=== PATIENT | male | born 1980 | race Two or more races ===

== ENCOUNTER 2016-05-30 07:51 | Inpatient (IN) | payer MEDICAID, OTHER ==
[~2016-05-30] VITALS: Ht 175.3 cm; Wt 83.1 kg
[2016-05-30] MEDS ORDERED: SODIUM CHLORIDE 0.9% 1,000 ML IV ONE (08:32)
[2016-05-30] MEDS ORDERED: HYDR-3240 PO (08:40)
[2016-05-30 09:13] LABS: HEMOGLOBIN 16.2 g/dL (13.7-18.0)
[2016-05-30 09:25] LABS: ASPARTATE AMINO TRANSFERASE 45 U/L (15-37); BLOOD UREA NITROGEN 13 mg/dL (7-18)
[2016-05-30 09:31] LABS: DIFF TOTAL CELLS COUNTED 100 CELL DIFF
[2016-05-30] MEDS ORDERED: ACETAMINOPHEN 325 MG TABLET PO ONE (10:00)
[2016-05-30] MEDS ORDERED: CEFTRIAXONE PMX 1GM/50ML 50 ML IV SCH (10:00)
[2016-05-30] MEDS ORDERED: ACETAMINOPHEN 325 MG TABLET ONE (10:15)
[2016-05-30] MEDS ORDERED: CEFTRIAXONE PMX 1GM/50ML 50 ML ONE (10:15)
[2016-05-30 10:30] LABS: VERIFY COUNTS? YES
[2016-05-30 10:37] LABS: POLYCHROMASIA 1+
[2016-05-30] MEDS ORDERED: BISACODYL 10 MG SUPP PR PRN (11:00)
[2016-05-30] MEDS: NICOTINE 14MG/24 HR PATCH.TD24 TD SCH (11:00)
[2016-05-30 11:39] VITALS: BP 112/76
[2016-05-30] MEDS: MEROPENEM 1 GM in SODIUM CHLORIDE 0.9% 50 ML IV SCH ×2 (11:40→21:04)
[2016-05-30] MEDS: SODIUM CHLORIDE 0.9% 1,000 ML IV SCH ×2 (11:41→21:04)
[2016-05-30] MEDS ORDERED: HEPARIN 5,000 UNITS/ML, 1ML IV ONE (12:00)
[2016-05-30 14:23] VITALS: BP 101/64
[2016-05-30] MEDS: HEPARIN 25,000 UNITS/500ML PMX 500 ML IV PRN (14:29)
[2016-05-30] MEDS: MORPHINE SULFATE 4 MG/ML, 1ML IVPush PRN ×2 (16:35→19:48)
[2016-05-30 20:00] VITALS: BP 116/70
[2016-05-30] MEDS: ACETAMINOPHEN 325 MG TABLET PO PRN (20:07)
[2016-05-30] MEDS: OXYcodone IR 5MG TABLET PO PRN (23:15)
[2016-05-31] MEDS: MORPHINE SULFATE 4 MG/ML, 1ML IVPush PRN ×6 (01:14→20:10)
[2016-05-31 01:35] VITALS: BP 113/72
[2016-05-31] MEDS: ACETAMINOPHEN 325 MG TABLET PO PRN ×2 (01:43→20:10)
[2016-05-31] MEDS: MEROPENEM 1 GM in SODIUM CHLORIDE 0.9% 50 ML IV SCH ×3 (04:40→20:10)
[2016-05-31 05:20] LABS: BLOOD UREA NITROGEN 12 mg/dL (7-18)
[2016-05-31 05:41] LABS: HIV 1&2 ANTIBODY SCREEN Nonreactive (Nonreactive); HIV-1 p24 ANTIGEN Nonreactive (Nonreactive)
[2016-05-31] MEDS: SODIUM CHLORIDE 0.9% 1,000 ML IV SCH ×2 (05:54→19:01)
[2016-05-31 06:01] LABS: HEMOGLOBIN 15.5 g/dL (13.7-18.0)
[2016-05-31 06:02] LABS: DIFF TOTAL CELLS COUNTED 100 CELL DIFF
[2016-05-31 06:06] LABS: VERIFY COUNTS? YES
[2016-05-31 06:09] LABS: POLYCHROMASIA 1+
[2016-05-31] MEDS: OXYcodone IR 5MG TABLET PO PRN ×4 (06:27→22:58)
[2016-05-31 07:30] VITALS: BP 115/79
[2016-05-31 10:31] LABS: HEPATITIS C VIRUS ANTIBODY Nonreactive (Nonreactive)
[2016-05-31] MEDS: NICOTINE 14MG/24 HR PATCH.TD24 TD SCH (10:38)
[2016-05-31 14:00] VITALS: BP 110/71
[2016-05-31] MEDS ORDERED: LIDOCAINE 1%, 20ML ONE (14:19)
[2016-05-31] MEDS ORDERED: NALOXONE 1 MG/ML, 2ML ONE (14:28)
[2016-05-31] MEDS ORDERED: FENTANYL PF 100 MCG/2ML ONE (14:28)
[2016-05-31] MEDS ORDERED: MIDAZOLAM 1 MG/ML, 5ML ONE (14:28)
[2016-05-31 16:09] VITALS: BP 117/75
[2016-05-31] MEDS: HEPARIN 25,000 UNITS/500ML PMX 500 ML IV PRN (17:35)
[2016-05-31 19:50] VITALS: BP 120/78
[2016-05-31] MEDS: HEPARIN 5,000 UNITS/ML, 1ML IV PRN (22:59)
[2016-06-01 00:38] VITALS: BP 103/68
[2016-06-01] MEDS: MORPHINE SULFATE 4 MG/ML, 1ML IVPush PRN ×4 (03:49→21:45)
[2016-06-01 04:47] LABS: HEMOGLOBIN 14.4 g/dL (13.7-18.0)
[2016-06-01] MEDS: MEROPENEM 1 GM in SODIUM CHLORIDE 0.9% 50 ML IV SCH ×3 (04:51→21:45)
[2016-06-01] MEDS: SODIUM CHLORIDE 0.9% 1,000 ML IV SCH (04:51)
[2016-06-01] MEDS: HEPARIN 25,000 UNITS/500ML PMX 500 ML IV PRN (04:52)
[2016-06-01 05:10] LABS: ASPARTATE AMINO TRANSFERASE 30 U/L (15-37); BLOOD UREA NITROGEN 10 mg/dL (7-18)
[2016-06-01] MEDS: OXYcodone IR 5MG TABLET PO PRN ×4 (05:26→23:58)
[2016-06-01] MEDS: HEPARIN 5,000 UNITS/ML, 1ML IV PRN ×3 (05:26→18:45)
[2016-06-01 05:49] LABS: DIFF TOTAL CELLS COUNTED 100 CELL DIFF
[2016-06-01 06:48] LABS: VERIFY COUNTS? YES
[2016-06-01 06:52] LABS: POLYCHROMASIA 1+
[2016-06-01 07:39] VITALS: BP 127/82
[2016-06-01] MEDS: NICOTINE 14MG/24 HR PATCH.TD24 TD SCH (11:00)
[2016-06-01 14:15] VITALS: BP 116/73
[2016-06-01 21:15] VITALS: BP 117/75
[2016-06-02] MEDS: HEPARIN 5,000 UNITS/ML, 1ML IV PRN ×3 (01:11→22:22)
[2016-06-02] MEDS: HEPARIN 25,000 UNITS/500ML PMX 500 ML IV PRN ×2 (01:12→15:36)
[2016-06-02 01:50] VITALS: BP 109/70
[2016-06-02] MEDS: MEROPENEM 1 GM in SODIUM CHLORIDE 0.9% 50 ML IV SCH ×3 (05:04→19:51)
[2016-06-02] MEDS: MORPHINE SULFATE 4 MG/ML, 1ML IVPush PRN ×3 (05:45→19:51)
[2016-06-02 07:40] VITALS: BP 119/81
[2016-06-02] MEDS: NICOTINE 14MG/24 HR PATCH.TD24 TD SCH (10:43)
[2016-06-02] MEDS: POLYETHYLENE GLYCOL 17 GM PACKET PO PRN (13:51)
[2016-06-02] MEDS: DOCUSATE 100 MG CAPSULE PO PRN (13:51)
[2016-06-02 14:30] VITALS: BP 121/78
[2016-06-02] MEDS ORDERED: WARFARIN 10 MG TABLET PO-COUM SCH (18:00)
[2016-06-02] MEDS ORDERED: WARFARIN HIGH DOSE PROTOCOL XX SCH (18:00)
[2016-06-02 19:25] VITALS: BP 106/68
[2016-06-02] MEDS ORDERED: OMNIPAQUE 350 MG/ML, 50 ML BOTTLE ONE (20:00)
[2016-06-02] MEDS ORDERED: OMNIPAQUE 350 MG/ML, 100ML BOTTLE ONE (20:00)
[2016-06-03 02:20] VITALS: BP 105/70
[2016-06-03] MEDS: MEROPENEM 1 GM in SODIUM CHLORIDE 0.9% 50 ML IV SCH (04:31)
[2016-06-03 04:44] LABS: HEMOGLOBIN 14.7 g/dL (13.7-18.0)
[2016-06-03 04:45] LABS: BLOOD UREA NITROGEN 9 mg/dL (7-18)
[2016-06-03 06:01] LABS: DIFF TOTAL CELLS COUNTED 100 CELL DIFF
[2016-06-03 06:07] LABS: VERIFY COUNTS? YES
[2016-06-03 06:08] LABS: POLYCHROMASIA 1+
[2016-06-03 07:19] VITALS: BP 114/74
[2016-06-03] MEDS ORDERED: MEROPENEM 1 GM in SODIUM CHLORIDE 0.9% 100 ML IV SCH (09:08)
[2016-06-03] MEDS: NICOTINE 14MG/24 HR PATCH.TD24 TD SCH (11:00)
[2016-06-03] MEDS ORDERED: LIDOCAINE 1%, 20ML ONE (13:22)
[2016-06-03 14:21] VITALS: BP 128/77
[2016-06-03] MEDS: MEROPENEM 1 GM in SODIUM CHLORIDE 0.9% 100 ML IV SCH ×2 (14:35→20:51)
[2016-06-03 14:37] LABS: CYTOLOGY BODY FLUID RECD INTO PATHOLOGY; CYTOLOGY BODY FLUID SOURCE CEREBROSPINAL FLUID
[2016-06-03] MEDS: OXYcodone IR 5MG TABLET PO PRN ×2 (14:43→21:49)
[2016-06-03 15:06] LABS: GLUCOSE, CSF 50 mg/dL (40-80)
[2016-06-03] MEDS: MORPHINE SULFATE 4 MG/ML, 1ML IVPush PRN ×3 (16:34→21:49)
[2016-06-03 19:31] VITALS: BP 110/76
[2016-06-03] MEDS ORDERED: HEPARIN 5,000 UNITS/ML, 1ML IV ONE (21:30)
[2016-06-03] MEDS: HEPARIN 25,000 UNITS/500ML PMX 500 ML IV PRN (21:35)
[2016-06-04 02:18] VITALS: BP 118/84
[2016-06-04] MEDS: OXYcodone IR 5MG TABLET PO PRN ×4 (02:30→21:31)
[2016-06-04] MEDS: MORPHINE SULFATE 4 MG/ML, 1ML IVPush PRN ×4 (02:30→18:00)
[2016-06-04] MEDS: GABAPENTIN 100 MG CAPSULE PO SCH ×3 (03:30→21:27)
[2016-06-04 03:38] LABS: BLOOD UREA NITROGEN 12 mg/dL (7-18)
[2016-06-04 03:59] LABS: HEMOGLOBIN 14.8 g/dL (13.7-18.0)
[2016-06-04] MEDS: HEPARIN 5,000 UNITS/ML, 1ML IV PRN ×3 (03:59→18:29)
[2016-06-04] MEDS: HEPARIN 25,000 UNITS/500ML PMX 500 ML IV PRN ×2 (04:02→21:32)
[2016-06-04 04:03] LABS: DIFF TOTAL CELLS COUNTED 100 CELL DIFF
[2016-06-04 04:09] LABS: POLYCHROMASIA 1+
[2016-06-04 04:27] LABS: VERIFY COUNTS? YES
[2016-06-04] MEDS: MEROPENEM 1 GM in SODIUM CHLORIDE 0.9% 100 ML IV SCH ×3 (05:36→21:27)
[2016-06-04 07:08] VITALS: BP 116/82
[2016-06-04] MEDS: NICOTINE 14MG/24 HR PATCH.TD24 TD SCH (11:00)
[2016-06-04 14:31] VITALS: BP 130/72
[2016-06-04] MEDS ORDERED: FOSAPREPITANT 150 MG in SODIUM CHLORIDE 0.9% 145 ML IV ONE (15:30)
[2016-06-04] MEDS: ONDANSETRON IV SCH (16:49)
[2016-06-04] MEDS: DEXAMETHASONE IV SCH (16:49)
[2016-06-04] MEDS: DEXTROSE 5% IV SCH (16:49)
[2016-06-04] MEDS: MESNA IVPB SCH (17:45)
[2016-06-04] MEDS: SODIUM CHLORIDE 0.9% IVPB SCH (17:45)
[2016-06-04] MEDS: ALLOPURINOL 300 MG TABLET PO SCH ×2 (18:00→21:27)
[2016-06-04] MEDS: CYCLOPHOSPHAMIDE IV SCH (19:15)
[2016-06-04] MEDS: SODIUM CHLORIDE 0.9% IV SCH (19:15)
[2016-06-04 19:55] VITALS: BP 154/78
[2016-06-05 01:14] LABS: DIFF TOTAL CELLS COUNTED 100 CELL DIFF; HEMOGLOBIN 15.2 g/dL (13.7-18.0)
[2016-06-05 01:20] LABS: BLOOD UREA NITROGEN 11 mg/dL (7-18)
[2016-06-05 01:36] VITALS: BP 120/74
[2016-06-05 01:40] LABS: VERIFY COUNTS? YES
[2016-06-05 01:42] LABS: POLYCHROMASIA 1+; SMUDGE CELLS 1+
[2016-06-05] MEDS: ALLOPURINOL 300 MG TABLET PO SCH ×2 (04:25→21:52)
[2016-06-05] MEDS: MEROPENEM 1 GM in SODIUM CHLORIDE 0.9% 100 ML IV SCH ×3 (04:26→21:52)
[2016-06-05] MEDS: SODIUM CHLORIDE 0.9% IV SCH ×2 (06:31→18:25)
[2016-06-05] MEDS: CYCLOPHOSPHAMIDE IV SCH ×2 (06:31→18:25)
[2016-06-05 06:43] VITALS: BP 135/82
[2016-06-05] MEDS: HEPARIN 5,000 UNITS/ML, 1ML IV PRN (07:40)
[2016-06-05] MEDS ORDERED: METHOTREXATE/PF 2ML 12 MG in SODIUM CHLORIDE 0.9% 4.52 ML IT ONE (09:00)
[2016-06-05] MEDS: GABAPENTIN 100 MG CAPSULE PO SCH ×2 (09:17→21:52)
[2016-06-05] MEDS: NICOTINE 14MG/24 HR PATCH.TD24 TD SCH (11:00)
[2016-06-05] MEDS: OXYcodone IR 5MG TABLET PO PRN ×3 (12:07→21:59)
[2016-06-05 12:34] VITALS: BP 135/88
[2016-06-05] MEDS ORDERED: SODIUM BICARBONATE 4.2%, 5ML ONE (16:04)
[2016-06-05] MEDS ORDERED: LIDOCAINE 1%, 20ML ONE (16:04)
[2016-06-05] MEDS: DEXAMETHASONE IV SCH (17:28)
[2016-06-05] MEDS: DEXTROSE 5% IV SCH (17:28)
[2016-06-05] MEDS: MESNA IVPB SCH (17:28)
[2016-06-05] MEDS: ONDANSETRON IV SCH (17:28)
[2016-06-05] MEDS: SODIUM CHLORIDE 0.9% IVPB SCH (17:28)
[2016-06-05 19:54] VITALS: BP 131/81
[2016-06-05] MEDS ORDERED: HEPARIN 5,000 UNITS/ML, 1ML IVPush ONE (22:30)
[2016-06-05] MEDS: HEPARIN 25,000 UNITS/500ML PMX 500 ML IV PRN (23:41)
[2016-06-06 02:22] VITALS: BP 121/85
[2016-06-06] MEDS: OXYcodone IR 5MG TABLET PO PRN ×2 (02:40→06:51)
[2016-06-06] MEDS: MEROPENEM 1 GM in SODIUM CHLORIDE 0.9% 100 ML IV SCH (05:52)
[2016-06-06] MEDS: SODIUM CHLORIDE 0.9% IV SCH ×2 (06:01→18:22)
[2016-06-06] MEDS: CYCLOPHOSPHAMIDE IV SCH ×2 (06:01→18:22)
[2016-06-06 06:04] LABS: BLOOD UREA NITROGEN 16 mg/dL (7-18)
[2016-06-06] MEDS: HEPARIN 5,000 UNITS/ML, 1ML IV PRN (06:15)
[2016-06-06 06:31] LABS: HEMOGLOBIN 14.5 g/dL (13.7-18.0)
[2016-06-06 06:39] LABS: DIFF TOTAL CELLS COUNTED 100 CELL DIFF
[2016-06-06 07:35] LABS: POLYCHROMASIA 1+
[2016-06-06 07:51] LABS: VERIFY COUNTS? YES
[2016-06-06] MEDS: GABAPENTIN 100 MG CAPSULE PO SCH ×2 (08:30→21:07)
[2016-06-06] MEDS: MORPHINE SULFATE 4 MG/ML, 1ML IVPush PRN ×2 (08:38→21:06)
[2016-06-06 08:47] VITALS: BP 114/64
[2016-06-06] MEDS: NICOTINE 14MG/24 HR PATCH.TD24 TD SCH (11:00)
[2016-06-06] MEDS ORDERED: BACLOFEN 10 MG TABLET PO PRN (11:00)
[2016-06-06 12:10] LABS: HIT RESULT NEGATIVE (NEGATIVE)
[2016-06-06 12:11] LABS: HIT LOT 23843; HIT OBC PASS
[2016-06-06] MEDS ORDERED: ARGATROBAN/NACL 50 MG/50 ML 50 ML IV SCH (12:30)
[2016-06-06] MEDS: ARGATROBAN/NACL 50 MG/50 ML 50 ML IV SCH ×3 (15:45→23:59)
[2016-06-06] MEDS: ONDANSETRON IV SCH (16:03)
[2016-06-06] MEDS: DEXTROSE 5% IV SCH (16:03)
[2016-06-06] MEDS: DEXAMETHASONE IV SCH (16:03)
[2016-06-06 16:19] VITALS: BP 124/79
[2016-06-06] MEDS: POLYETHYLENE GLYCOL 17 GM PACKET PO PRN (16:32)
[2016-06-06] MEDS ORDERED: IMATINIB 100 MG TABLET ONE (17:00)
[2016-06-06] MEDS: MESNA IVPB SCH (18:20)
[2016-06-06] MEDS: SODIUM CHLORIDE 0.9% IVPB SCH (18:20)
[2016-06-06] MEDS: IMATINIB 100 MG PO SCH (18:23)
[2016-06-06 19:38] VITALS: BP 119/69
[2016-06-06] MEDS: ALLOPURINOL 300 MG TABLET PO SCH (21:07)
[2016-06-07 02:22] VITALS: BP 122/69
[2016-06-07] MEDS: OXYcodone IR 5MG TABLET PO PRN ×3 (02:30→20:07)
[2016-06-07 02:36] LABS: HEMOGLOBIN 14.4 g/dL (13.7-18.0)
[2016-06-07 02:45] LABS: BLOOD UREA NITROGEN 17 mg/dL (7-18)
[2016-06-07 02:50] LABS: DIFF TOTAL CELLS COUNTED 100 CELL DIFF
[2016-06-07 03:11] LABS: VERIFY COUNTS? YES
[2016-06-07 03:12] LABS: POLYCHROMASIA 1+; SMUDGE CELLS 1+
[2016-06-07] MEDS: ARGATROBAN/NACL 50 MG/50 ML 50 ML IV SCH ×3 (03:32→13:59)
[2016-06-07] MEDS: CYCLOPHOSPHAMIDE IV SCH (06:00)
[2016-06-07] MEDS: SODIUM CHLORIDE 0.9% IV SCH (06:00)
[2016-06-07 06:57] VITALS: BP 100/59
[2016-06-07] MEDS: GABAPENTIN 100 MG CAPSULE PO SCH ×2 (08:32→20:07)
[2016-06-07] MEDS: NICOTINE 14MG/24 HR PATCH.TD24 TD SCH (10:38)
[2016-06-07 12:40] VITALS: BP 121/74
[2016-06-07] MEDS ORDERED: SODIUM CHLORIDE 0.9% IV ONE ×2 (15:30→16:00)
[2016-06-07] MEDS ORDERED: VINCRISTINE IV ONE (15:30)
[2016-06-07] MEDS: DEXAMETHASONE IV SCH (15:57)
[2016-06-07] MEDS: DEXTROSE 5% IV SCH (15:57)
[2016-06-07] MEDS: ONDANSETRON IV SCH (15:57)
[2016-06-07] MEDS ORDERED: DOXORUBICIN IV ONE (16:00)
[2016-06-07] MEDS ORDERED: METOCLOPRAMIDE 10MG TABLET PO PRN (16:30)
[2016-06-07] MEDS ORDERED: IMATINIB 100 MG TABLET ONE (17:00)
[2016-06-07] MEDS: IMATINIB 100 MG PO SCH (17:00)
[2016-06-07 18:42] VITALS: BP 123/63
[2016-06-07] MEDS: ALLOPURINOL 300 MG TABLET PO SCH (20:07)
[2016-06-07] MEDS ORDERED: ARGATROBAN IN 0.9 % SOD CHLOR 250 ML IV SCH (22:00)
[2016-06-08] MEDS ORDERED: IMATINIB 100 MG PO SCH (00:55)
[2016-06-08 03:54] VITALS: BP 111/65
[2016-06-08 07:14] LABS: BLOOD UREA NITROGEN 18 mg/dL (7-18)
[2016-06-08 07:16] LABS: ASPARTATE AMINO TRANSFERASE 93 U/L (15-37)
[2016-06-08 07:20] LABS: HEMOGLOBIN 14.2 g/dL (13.7-18.0)
[2016-06-08 08:24] LABS: DIFF TOTAL CELLS COUNTED 100 CELL DIFF
[2016-06-08] MEDS: GABAPENTIN 100 MG CAPSULE PO SCH ×2 (08:31→21:01)
[2016-06-08 08:33] VITALS: BP 118/56
[2016-06-08 08:44] LABS: POLYCHROMASIA 1+
[2016-06-08 08:45] LABS: VERIFY COUNTS? YES
[2016-06-08] MEDS: OXYcodone IR 5MG TABLET PO PRN (09:23)
[2016-06-08] MEDS: NICOTINE 14MG/24 HR PATCH.TD24 TD SCH (11:00)
[2016-06-08] MEDS ORDERED: ARGATROBAN IN 0.9 % SOD CHLOR 250 ML IV SCH (11:32)
[2016-06-08 14:20] VITALS: BP 112/54
[2016-06-08] MEDS: ARGATROBAN IN 0.9 % SOD CHLOR 250 ML IV SCH ×2 (16:59→23:16)
[2016-06-08] MEDS ORDERED: IMATINIB 100 MG TABLET ONE (17:00)
[2016-06-08] MEDS: IMATINIB 100 MG PO SCH (17:30)
[2016-06-08] MEDS: ONDANSETRON 2MG/ML, 2ML IVP PRN (17:53)
[2016-06-08] MEDS: PROMETHAZINE 25 MG/ML, 1ML IM PRN (18:20)
[2016-06-08 20:00] VITALS: BP 104/57
[2016-06-08] MEDS: TBO-FILGRASTIM 480 MCG/0.8 ML SQ SCH (21:01)
[2016-06-08] MEDS: ALLOPURINOL 300 MG TABLET PO SCH (21:01)
[2016-06-09 02:13] VITALS: BP 105/53
[2016-06-09] MEDS: OXYcodone IR 5MG TABLET PO PRN (02:58)
[2016-06-09 06:22] LABS: BLOOD UREA NITROGEN 21 mg/dL (7-18)
[2016-06-09 06:23] LABS: HEMOGLOBIN 14.7 g/dL (13.7-18.0)
[2016-06-09 06:47] LABS: DIFF TOTAL CELLS COUNTED 100 CELL DIFF
[2016-06-09 06:50] LABS: VERIFY COUNTS? YES
[2016-06-09] MEDS: GABAPENTIN 100 MG CAPSULE PO SCH ×2 (08:12→20:03)
[2016-06-09 09:01] VITALS: BP 94/60
[2016-06-09] MEDS: NICOTINE 14MG/24 HR PATCH.TD24 TD SCH (10:49)
[2016-06-09] MEDS ORDERED: ARGATROBAN IN 0.9 % SOD CHLOR 250 ML IV SCH ×2 (11:14→13:46)
[2016-06-09] MEDS: ARGATROBAN IN 0.9 % SOD CHLOR 250 ML IV SCH ×3 (13:48→18:33)
[2016-06-09 14:22] VITALS: BP 103/66
[2016-06-09] MEDS ORDERED: IMATINIB 100 MG TABLET ONE (17:00)
[2016-06-09] MEDS: IMATINIB 100 MG PO SCH (17:18)
[2016-06-09] MEDS: ALLOPURINOL 300 MG TABLET PO SCH (20:03)
[2016-06-09 20:33] VITALS: BP 99/63
[2016-06-09] MEDS: TBO-FILGRASTIM 480 MCG/0.8 ML SQ SCH (21:31)
[2016-06-10] MEDS: ARGATROBAN IN 0.9 % SOD CHLOR 250 ML IV SCH ×4 (01:31→21:47)
[2016-06-10 04:15] VITALS: BP 105/60
[2016-06-10 05:38] LABS: BLOOD UREA NITROGEN 19 mg/dL (7-18)
[2016-06-10 05:41] LABS: HEMOGLOBIN 13.1 g/dL (13.7-18.0)
[2016-06-10 06:10] LABS: DIFF TOTAL CELLS COUNTED 100 CELL DIFF
[2016-06-10 06:23] LABS: VERIFY COUNTS? YES
[2016-06-10 06:26] LABS: POLYCHROMASIA 1+
[2016-06-10] MEDS: GABAPENTIN 100 MG CAPSULE PO SCH ×2 (08:34→23:34)
[2016-06-10 08:44] VITALS: BP 102/66
[2016-06-10] MEDS: NICOTINE 14MG/24 HR PATCH.TD24 TD SCH (11:00)
[2016-06-10 14:40] VITALS: BP 108/70
[2016-06-10] MEDS ORDERED: IMATINIB 100 MG TABLET ONE (17:00)
[2016-06-10] MEDS: IMATINIB 100 MG PO SCH (18:17)
[2016-06-10 20:56] VITALS: BP 94/54
[2016-06-10] MEDS: ALLOPURINOL 300 MG TABLET PO SCH (23:34)
[2016-06-10] MEDS: TBO-FILGRASTIM 480 MCG/0.8 ML SQ SCH (23:36)
[2016-06-11] VITALS (7 sets, daily range): BP systolic 104–122; BP diastolic 60–70
[2016-06-11] MEDS: ARGATROBAN IN 0.9 % SOD CHLOR 250 ML IV SCH (03:56)
[2016-06-11 05:06] LABS: SRA, LOW DOSE HEPARIN <1 % (0-20)
[2016-06-11 06:01] LABS: HEMOGLOBIN 12.2 g/dL (13.7-18.0)
[2016-06-11 06:14] LABS: BLOOD UREA NITROGEN 13 mg/dL (7-18)
[2016-06-11] MEDS: GABAPENTIN 100 MG CAPSULE PO SCH ×2 (09:52→22:30)
[2016-06-11] MEDS ORDERED: DIPHENHYDRAMINE 50 MG/ML, 1ML IVPush ONE (11:00)
[2016-06-11] MEDS ORDERED: ACETAMINOPHEN 325 MG TABLET PO ONE (11:00)
[2016-06-11] MEDS: NICOTINE 14MG/24 HR PATCH.TD24 TD SCH (11:00)
[2016-06-11] MEDS ORDERED: CYTARABINE/PF 100 MG in SODIUM CHLORIDE 0.9% 4 ML IT ONE (11:00)
[2016-06-11] MEDS ORDERED: HEPARIN 25,000 UNITS/500ML PMX 500 ML IV PRN (13:30)
[2016-06-11 15:54] LABS: HEMOGLOBIN 11.7 g/dL (13.7-18.0)
[2016-06-11 15:55] LABS: DIFF TOTAL CELLS COUNTED 100 CELL DIFF
[2016-06-11] MEDS ORDERED: IMATINIB 400 MG TABLET PO SCH (16:15)
[2016-06-11 16:46] LABS: VERIFY COUNTS? YES
[2016-06-11] MEDS ORDERED: HEPARIN 5,000 UNITS/ML, 1ML IV PRN (17:00)
[2016-06-11] MEDS ORDERED: IMATINIB 100 MG TABLET ONE (17:00)
[2016-06-11] MEDS ORDERED: HEPARIN 5,000 UNITS/ML, 1ML IV ONE ×3 (17:00→23:00)
[2016-06-11] MEDS: OXYcodone IR 5MG TABLET PO PRN (17:44)
[2016-06-11] MEDS ORDERED: IMATINIB 100 MG PO SCH (18:00)
[2016-06-11] MEDS: ALLOPURINOL 300 MG TABLET PO SCH (22:30)
[2016-06-11] MEDS: TBO-FILGRASTIM 480 MCG/0.8 ML SQ SCH (22:31)
[2016-06-11] MEDS: ONDANSETRON 2MG/ML, 2ML IVP PRN (23:13)
[2016-06-11] MEDS: HEPARIN 25,000 UNITS/500ML PMX 500 ML IV PRN (23:42)
[2016-06-12 02:55] VITALS: BP 91/42
[2016-06-12 06:21] LABS: HEMOGLOBIN 10.6 g/dL (13.7-18.0)
[2016-06-12 06:22] LABS: BLOOD UREA NITROGEN 13 mg/dL (7-18)
[2016-06-12 06:26] LABS: ASPARTATE AMINO TRANSFERASE 35 U/L (15-37)
[2016-06-12 06:50] VITALS: BP 104/64
[2016-06-12 07:15] LABS: DIFF TOTAL CELLS COUNTED 100 CELL DIFF
[2016-06-12 07:23] LABS: VERIFY COUNTS? YES
[2016-06-12] MEDS: GABAPENTIN 100 MG CAPSULE PO SCH ×2 (09:28→19:53)
[2016-06-12] MEDS: OXYcodone IR 5MG TABLET PO PRN (09:28)
[2016-06-12] MEDS: MEROPENEM 1 GM in SODIUM CHLORIDE 0.9% 100 ML IV SCH ×2 (10:21→18:42)
[2016-06-12] MEDS: NICOTINE 14MG/24 HR PATCH.TD24 TD SCH (11:00)
[2016-06-12 15:24] VITALS: BP 101/66
[2016-06-12] MEDS ORDERED: HEPARIN 5,000 UNITS/ML, 1ML IVPush ONE (16:30)
[2016-06-12] MEDS: IMATINIB 100 MG TABLET PO SCH (18:45)
[2016-06-12] MEDS: ALLOPURINOL 300 MG TABLET PO SCH (19:53)
[2016-06-12 20:25] VITALS: BP 92/44
[2016-06-12] MEDS: ZOLPIDEM 5MG TABLET PO PRN (21:41)
[2016-06-12] MEDS: TBO-FILGRASTIM 480 MCG/0.8 ML SQ SCH (21:43)
[2016-06-12] MEDS: HEPARIN 25,000 UNITS/500ML PMX 500 ML IV PRN (22:07)
[2016-06-12] MEDS: HEPARIN 5,000 UNITS/ML, 1ML IV PRN (22:41)
[2016-06-13 02:40] VITALS: BP 103/53
[2016-06-13] MEDS: MEROPENEM 1 GM in SODIUM CHLORIDE 0.9% 100 ML IV SCH ×3 (03:41→21:27)
[2016-06-13] MEDS: OXYcodone IR 5MG TABLET PO PRN ×2 (04:39→18:04)
[2016-06-13 05:17] LABS: BLOOD UREA NITROGEN 8 mg/dL (7-18); HEMOGLOBIN 9.6 g/dL (13.7-18.0)
[2016-06-13] MEDS: HEPARIN 5,000 UNITS/ML, 1ML IV PRN ×3 (05:33→21:27)
[2016-06-13 05:39] LABS: DIFF TOTAL CELLS COUNTED 100 CELL DIFF
[2016-06-13 05:42] LABS: VERIFY COUNTS? YES
[2016-06-13] MEDS ORDERED: VANCOMYCIN PER PHARMACY MC PRN (07:00)
[2016-06-13] MEDS ORDERED: FLUCONAZOLE 400 MG/200 ML 200 ML IV SCH (07:00)
[2016-06-13] MEDS ORDERED: PHARMACOKINETIC MONITORING MC PRN (07:30)
[2016-06-13] MEDS: GABAPENTIN 100 MG CAPSULE PO SCH ×2 (08:01→21:27)
[2016-06-13 08:30] VITALS: BP 108/67
[2016-06-13] MEDS: NICOTINE 14MG/24 HR PATCH.TD24 TD SCH (11:00)
[2016-06-13] MEDS: VANCOMYCIN 1,600 MG in SODIUM CHLORIDE 0.9% 250 ML IV SCH ×2 (11:12→22:13)
[2016-06-13 14:06] VITALS: BP 108/69
[2016-06-13] MEDS: MICAFUNGIN 150 MG in SODIUM CHLORIDE 0.9% 100 ML IV SCH (14:16)
[2016-06-13] MEDS: HEPARIN 25,000 UNITS/500ML PMX 500 ML IV PRN (15:08)
[2016-06-13] MEDS: IMATINIB 100 MG TABLET PO SCH (17:50)
[2016-06-13] MEDS: POLYETHYLENE GLYCOL 17 GM PACKET PO PRN (18:04)
[2016-06-13 20:11] VITALS: BP 94/52
[2016-06-13] MEDS: ALLOPURINOL 300 MG TABLET PO SCH (21:27)
[2016-06-13] MEDS: TBO-FILGRASTIM 480 MCG/0.8 ML SQ SCH (21:27)
[2016-06-13] MEDS: ZOLPIDEM 5MG TABLET PO PRN (21:37)
[2016-06-14] MEDS: MEROPENEM 1 GM in SODIUM CHLORIDE 0.9% 100 ML IV SCH ×3 (03:45→19:27)
[2016-06-14 04:08] VITALS: BP 78/33
[2016-06-14 04:15] LABS: BLOOD UREA NITROGEN 8 mg/dL (7-18)
[2016-06-14 04:24] LABS: HEMOGLOBIN 9.3 g/dL (13.7-18.0)
[2016-06-14 04:27] LABS: DIFF TOTAL CELLS COUNTED 100 CELL DIFF
[2016-06-14 04:37] LABS: VERIFY COUNTS? YES
[2016-06-14] MEDS: HEPARIN 25,000 UNITS/500ML PMX 500 ML IV PRN ×2 (04:53→19:42)
[2016-06-14 07:25] VITALS: BP 109/59
[2016-06-14] MEDS: OXYcodone IR 5MG TABLET PO PRN (08:22)
[2016-06-14] MEDS: GABAPENTIN 100 MG CAPSULE PO SCH ×2 (08:22→19:42)
[2016-06-14] MEDS ORDERED: VINCRISTINE IV ONE (09:00)
[2016-06-14] MEDS ORDERED: SODIUM CHLORIDE 0.9% IV ONE ×2 (09:00→11:00)
[2016-06-14] MEDS: VANCOMYCIN 1,600 MG in SODIUM CHLORIDE 0.9% 250 ML IV SCH ×2 (09:53→22:42)
[2016-06-14] MEDS: DEXAMETHASONE 40 MG in SODIUM CHLORIDE 0.9% 50 ML IV SCH (10:04)
[2016-06-14] MEDS ORDERED: FAMOTIDINE 20 MG/2 ML IVPush ONE (10:30)
[2016-06-14] MEDS ORDERED: DIPHENHYDRAMINE 50 MG/ML, 1ML IVPush ONE (10:30)
[2016-06-14] MEDS ORDERED: ACETAMINOPHEN 325 MG TABLET PO ONE (10:30)
[2016-06-14] MEDS ORDERED: RITUXIMAB IV ONE (11:00)
[2016-06-14] MEDS: NICOTINE 14MG/24 HR PATCH.TD24 TD SCH (11:00)
[2016-06-14] MEDS: HEPARIN 5,000 UNITS/ML, 1ML IV PRN (11:26)
[2016-06-14] MEDS: MICAFUNGIN 150 MG in SODIUM CHLORIDE 0.9% 100 ML IV SCH (14:43)
[2016-06-14 14:50] VITALS: BP 109/63
[2016-06-14] MEDS: IMATINIB 100 MG TABLET PO SCH (17:42)
[2016-06-14] MEDS: ALLOPURINOL 300 MG TABLET PO SCH (19:42)
[2016-06-14] MEDS: TBO-FILGRASTIM 480 MCG/0.8 ML SQ SCH (21:41)
[2016-06-14 21:55] VITALS: BP 135/63
[2016-06-14] MEDS: ZOLPIDEM 5MG TABLET PO PRN (23:59)
[2016-06-15] MEDS: MEROPENEM 1 GM in SODIUM CHLORIDE 0.9% 100 ML IV SCH ×3 (03:20→19:43)
[2016-06-15 04:19] VITALS: BP 125/70
[2016-06-15 07:47] LABS: BLOOD UREA NITROGEN 9 mg/dL (7-18)
[2016-06-15 08:15] VITALS: BP 107/58
[2016-06-15] MEDS: GABAPENTIN 100 MG CAPSULE PO SCH ×2 (08:17→19:43)
[2016-06-15 08:42] LABS: DIFF TOTAL CELLS COUNTED 100 CELL DIFF; HEMOGLOBIN 9.4 g/dL (13.7-18.0)
[2016-06-15 09:02] LABS: VERIFY COUNTS? YES
[2016-06-15 09:03] LABS: POLYCHROMASIA 1+
[2016-06-15] MEDS: VANCOMYCIN 1,600 MG in SODIUM CHLORIDE 0.9% 250 ML IV SCH (09:52)
[2016-06-15] MEDS: HEPARIN 25,000 UNITS/500ML PMX 500 ML IV PRN ×2 (09:59→23:15)
[2016-06-15] MEDS: NICOTINE 14MG/24 HR PATCH.TD24 TD SCH (11:00)
[2016-06-15] MEDS: DEXAMETHASONE 40 MG in SODIUM CHLORIDE 0.9% 50 ML IV SCH (13:47)
[2016-06-15] MEDS: MICAFUNGIN 150 MG in SODIUM CHLORIDE 0.9% 100 ML IV SCH (14:24)
[2016-06-15 14:37] VITALS: BP 107/71
[2016-06-15] MEDS: IMATINIB 100 MG TABLET PO SCH (18:02)
[2016-06-15] MEDS: ALLOPURINOL 300 MG TABLET PO SCH (19:43)
[2016-06-15] MEDS: CALCIUM CARBONATE 500 MG TAB.CHEW PO PRN (19:44)
[2016-06-15] MEDS: ZOLPIDEM 5MG TABLET PO PRN (21:13)
[2016-06-15] MEDS: TBO-FILGRASTIM 480 MCG/0.8 ML SQ SCH (21:14)
[2016-06-15 22:06] VITALS: BP 121/67
[2016-06-16 02:56] VITALS: BP 96/56
[2016-06-16] MEDS: CALCIUM CARBONATE 500 MG TAB.CHEW PO PRN ×2 (02:56→20:53)
[2016-06-16] MEDS: MEROPENEM 1 GM in SODIUM CHLORIDE 0.9% 100 ML IV SCH ×3 (03:58→20:49)
[2016-06-16 05:25] LABS: HEMOGLOBIN 8.5 g/dL (13.7-18.0)
[2016-06-16 05:36] LABS: BLOOD UREA NITROGEN 11 mg/dL (7-18)
[2016-06-16 06:26] VITALS: BP 115/62
[2016-06-16 06:34] LABS: DIFF TOTAL CELLS COUNTED 100 CELL DIFF
[2016-06-16 06:40] LABS: POLYCHROMASIA 1+; VERIFY COUNTS? YES
[2016-06-16] MEDS: DOCUSATE 100 MG CAPSULE PO PRN (08:00)
[2016-06-16] MEDS: GABAPENTIN 100 MG CAPSULE PO SCH ×2 (08:00→20:52)
[2016-06-16] MEDS: DEXAMETHASONE 40 MG in SODIUM CHLORIDE 0.9% 50 ML IV SCH (09:03)
[2016-06-16] MEDS: NICOTINE 14MG/24 HR PATCH.TD24 TD SCH (11:00)
[2016-06-16] MEDS: HEPARIN 25,000 UNITS/500ML PMX 500 ML IV PRN (11:36)
[2016-06-16 12:05] VITALS: BP 127/88
[2016-06-16] MEDS: MICAFUNGIN 150 MG in SODIUM CHLORIDE 0.9% 100 ML IV SCH (13:26)
[2016-06-16] MEDS: IMATINIB 100 MG TABLET PO SCH (18:00)
[2016-06-16] MEDS: ALLOPURINOL 300 MG TABLET PO SCH (20:52)
[2016-06-16] MEDS: TBO-FILGRASTIM 480 MCG/0.8 ML SQ SCH (20:53)
[2016-06-16 21:18] VITALS: BP 100/62
[2016-06-17] MEDS: ZOLPIDEM 5MG TABLET PO PRN ×2 (00:05→21:45)
[2016-06-17] MEDS: HEPARIN 25,000 UNITS/500ML PMX 500 ML IV PRN ×2 (00:06→14:21)
[2016-06-17 01:45] VITALS: BP 105/62
[2016-06-17] MEDS: MEROPENEM 1 GM in SODIUM CHLORIDE 0.9% 100 ML IV SCH ×3 (04:26→20:37)
[2016-06-17 04:57] LABS: HEMOGLOBIN 8.5 g/dL (13.7-18.0)
[2016-06-17 05:23] LABS: DIFF TOTAL CELLS COUNTED 100 CELL DIFF
[2016-06-17 05:26] LABS: ANISOCYTOSIS 1+
[2016-06-17 05:37] LABS: VERIFY COUNTS? YES
[2016-06-17 08:05] VITALS: BP 115/68
[2016-06-17] MEDS: ACETAMINOPHEN 325 MG TABLET PO PRN (08:16)
[2016-06-17] MEDS: DOCUSATE 100 MG CAPSULE PO PRN (08:17)
[2016-06-17] MEDS: OXYcodone IR 5MG TABLET PO PRN ×2 (08:17→12:46)
[2016-06-17] MEDS: GABAPENTIN 100 MG CAPSULE PO SCH ×2 (08:17→20:37)
[2016-06-17] MEDS: DEXAMETHASONE 40 MG in SODIUM CHLORIDE 0.9% 50 ML IV SCH (09:15)
[2016-06-17] MEDS: NICOTINE 14MG/24 HR PATCH.TD24 TD SCH (10:53)
[2016-06-17] MEDS: ONDANSETRON 2MG/ML, 2ML IVP PRN (12:46)
[2016-06-17 13:30] VITALS: BP 123/69
[2016-06-17] MEDS: IMATINIB 100 MG TABLET PO SCH (17:24)
[2016-06-17 19:30] VITALS: BP 111/66
[2016-06-17] MEDS: TBO-FILGRASTIM 480 MCG/0.8 ML SQ SCH (20:37)
[2016-06-17] MEDS: ALLOPURINOL 300 MG TABLET PO SCH (20:37)
[2016-06-18] MEDS: HEPARIN 25,000 UNITS/500ML PMX 500 ML IV PRN ×2 (02:47→17:19)
[2016-06-18] MEDS: MEROPENEM 1 GM in SODIUM CHLORIDE 0.9% 100 ML IV SCH ×3 (04:39→20:53)
[2016-06-18 04:46] VITALS: BP 119/57
[2016-06-18 05:13] LABS: HEMOGLOBIN 8.7 g/dL (13.7-18.0)
[2016-06-18 08:33] VITALS: BP 119/66
[2016-06-18] MEDS: ONDANSETRON 2MG/ML, 2ML IVP PRN (09:06)
[2016-06-18] MEDS: GABAPENTIN 100 MG CAPSULE PO SCH ×2 (09:06→20:53)
[2016-06-18] MEDS: OXYcodone IR 5MG TABLET PO PRN (10:57)
[2016-06-18] MEDS: NICOTINE 14MG/24 HR PATCH.TD24 TD SCH ×2 (11:00→13:53)
[2016-06-18] MEDS: CALCIUM CARBONATE 500 MG TAB.CHEW PO PRN (12:38)
[2016-06-18] MEDS: ACETAMINOPHEN 325 MG TABLET PO PRN (12:38)
[2016-06-18 13:28] VITALS: BP 114/70
[2016-06-18] MEDS: IMATINIB 100 MG TABLET PO SCH (17:20)
[2016-06-18 20:10] VITALS: BP 112/72
[2016-06-18] MEDS: ALLOPURINOL 300 MG TABLET PO SCH (20:53)
[2016-06-18] MEDS: ZOLPIDEM 5MG TABLET PO PRN (22:48)
[2016-06-19] VITALS (7 sets, daily range): BP systolic 98–118; BP diastolic 55–82
[2016-06-19] MEDS: MEROPENEM 1 GM in SODIUM CHLORIDE 0.9% 100 ML IV SCH ×3 (05:05→21:18)
[2016-06-19 05:56] LABS: HEMOGLOBIN 9.2 g/dL (13.7-18.0)
[2016-06-19 06:01] LABS: DIFF TOTAL CELLS COUNTED 100 CELL DIFF
[2016-06-19 06:04] LABS: HYPOCHROMIA 1+; POLYCHROMASIA 1+; VERIFY COUNTS? YES
[2016-06-19] MEDS: OXYcodone IR 5MG TABLET PO PRN ×3 (07:37→21:48)
[2016-06-19] MEDS ORDERED: LIDOCAINE 1%, 20ML ONE (09:58)
[2016-06-19] MEDS ORDERED: FENTANYL PF 100 MCG/2ML ONE (10:10)
[2016-06-19] MEDS ORDERED: MIDAZOLAM 1 MG/ML, 5ML ONE (10:10)
[2016-06-19] MEDS: NICOTINE 14MG/24 HR PATCH.TD24 TD SCH (11:00)
[2016-06-19] MEDS: GABAPENTIN 100 MG CAPSULE PO SCH ×2 (13:23→21:18)
[2016-06-19] MEDS: IMATINIB 100 MG TABLET PO SCH (18:13)
[2016-06-19] MEDS: ALLOPURINOL 300 MG TABLET PO SCH (21:18)
[2016-06-20 04:00] VITALS: BP 102/56
[2016-06-20] MEDS: MEROPENEM 1 GM in SODIUM CHLORIDE 0.9% 100 ML IV SCH ×3 (05:47→20:30)
[2016-06-20] MEDS: GABAPENTIN 100 MG CAPSULE PO SCH ×2 (08:58→20:30)
[2016-06-20] MEDS ORDERED: GADOBUTROL 10 MMOL/10 ML PFS ONE (09:17)
[2016-06-20] MEDS: NICOTINE 14MG/24 HR PATCH.TD24 TD SCH (11:00)
[2016-06-20 11:03] LABS: HEMOGLOBIN 9.7 g/dL (13.7-18.0)
[2016-06-20 11:16] LABS: DIFF TOTAL CELLS COUNTED 100 CELL DIFF
[2016-06-20 11:20] LABS: ANISOCYTOSIS 1+; POLYCHROMASIA 1+; VERIFY COUNTS? YES
[2016-06-20] MEDS ORDERED: HEPARIN wt. based STROKE protocol MC PRN (12:00)
[2016-06-20] MEDS: HEPARIN 25,000 UNITS/500ML PMX 500 ML IV PRN (12:36)
[2016-06-20] MEDS: IMATINIB 100 MG TABLET PO SCH (19:23)
[2016-06-20] MEDS: ALLOPURINOL 300 MG TABLET PO SCH (20:30)
[2016-06-21 04:00] VITALS: BP 98/42
[2016-06-21 04:34] LABS: HEMOGLOBIN 9.6 g/dL (13.7-18.0)
[2016-06-21 04:35] LABS: ASPARTATE AMINO TRANSFERASE 24 U/L (15-37); BLOOD UREA NITROGEN 14 mg/dL (7-18)
[2016-06-21 04:40] LABS: DIFF TOTAL CELLS COUNTED 100 CELL DIFF
[2016-06-21 04:46] LABS: ANISOCYTOSIS 1+; POLYCHROMASIA 1+
[2016-06-21 04:47] LABS: VERIFY COUNTS? YES
[2016-06-21] MEDS: MEROPENEM 1 GM in SODIUM CHLORIDE 0.9% 100 ML IV SCH ×3 (05:07→20:35)
[2016-06-21] MEDS: GABAPENTIN 100 MG CAPSULE PO SCH ×2 (08:37→20:35)
[2016-06-21] MEDS: NICOTINE 14MG/24 HR PATCH.TD24 TD SCH (11:56)
[2016-06-21] MEDS: HEPARIN 25,000 UNITS/500ML PMX 500 ML IV PRN (13:22)
[2016-06-21] MEDS: OXYcodone IR 5MG TABLET PO PRN ×2 (15:34→19:36)
[2016-06-21] MEDS: IMATINIB 100 MG TABLET PO SCH (19:10)
[2016-06-21] MEDS: ALLOPURINOL 300 MG TABLET PO SCH (20:35)
[2016-06-22 04:03] VITALS: BP 101/55
[2016-06-22 04:46] LABS: BLOOD UREA NITROGEN 9 mg/dL (7-18)
[2016-06-22 04:52] LABS: HEMOGLOBIN 9.6 g/dL (13.7-18.0)
[2016-06-22] MEDS: OXYcodone IR 5MG TABLET PO PRN ×2 (05:07→23:46)
[2016-06-22] MEDS: MEROPENEM 1 GM in SODIUM CHLORIDE 0.9% 100 ML IV SCH ×3 (05:08→23:46)
[2016-06-22] MEDS: HEPARIN 25,000 UNITS/500ML PMX 500 ML IV PRN ×2 (05:27→21:29)
[2016-06-22 05:52] LABS: DIFF TOTAL CELLS COUNTED 100 CELL DIFF
[2016-06-22 05:55] LABS: ANISOCYTOSIS 1+; POLYCHROMASIA 1+; VERIFY COUNTS? YES
[2016-06-22 05:56] LABS: MICROCYTOSIS 1+; SPHEROCYTES 1+
[2016-06-22] MEDS: GABAPENTIN 100 MG CAPSULE PO SCH ×2 (08:58→20:27)
[2016-06-22] MEDS: NICOTINE 14MG/24 HR PATCH.TD24 TD SCH (11:00)
[2016-06-22 19:00] VITALS: BP 111/72
[2016-06-22] MEDS: IMATINIB 100 MG TABLET PO SCH (19:27)
[2016-06-22] MEDS: ALLOPURINOL 300 MG TABLET PO SCH (20:27)
[2016-06-23 01:36] VITALS: BP 101/64
[2016-06-23 06:04] LABS: HEMOGLOBIN 9.9 g/dL (13.7-18.0)
[2016-06-23 06:10] LABS: BLOOD UREA NITROGEN 13 mg/dL (7-18)
[2016-06-23 06:44] VITALS: BP 110/72
[2016-06-23 06:51] LABS: DIFF TOTAL CELLS COUNTED 100 CELL DIFF
[2016-06-23 07:11] LABS: VERIFY COUNTS? YES
[2016-06-23 07:12] LABS: MICROCYTOSIS 1+
[2016-06-23] MEDS: MEROPENEM 1 GM in SODIUM CHLORIDE 0.9% 100 ML IV SCH ×2 (08:09→15:58)
[2016-06-23] MEDS: GABAPENTIN 100 MG CAPSULE PO SCH ×2 (08:09→19:39)
[2016-06-23] MEDS: HEPARIN 25,000 UNITS/500ML PMX 500 ML IV PRN (10:21)
[2016-06-23] MEDS: NICOTINE 14MG/24 HR PATCH.TD24 TD SCH (10:24)
[2016-06-23 13:04] VITALS: BP 111/72
[2016-06-23] MEDS: IMATINIB 100 MG TABLET PO SCH (17:34)
[2016-06-23 19:18] VITALS: BP 115/76
[2016-06-23] MEDS: OXYcodone IR 5MG TABLET PO PRN (19:39)
[2016-06-23] MEDS: ALLOPURINOL 300 MG TABLET PO SCH (19:39)
[2016-06-24] MEDS: MEROPENEM 1 GM in SODIUM CHLORIDE 0.9% 100 ML IV SCH ×3 (00:53→18:23)
[2016-06-24] MEDS: HEPARIN 25,000 UNITS/500ML PMX 500 ML IV PRN ×2 (01:26→18:26)
[2016-06-24 01:30] VITALS: BP 105/73
[2016-06-24] MEDS: ZOLPIDEM 5MG TABLET PO PRN ×2 (01:35→21:38)
[2016-06-24 07:50] VITALS: BP 100/66
[2016-06-24] MEDS: GABAPENTIN 100 MG CAPSULE PO SCH ×2 (10:10→21:38)
[2016-06-24] MEDS: NICOTINE 14MG/24 HR PATCH.TD24 TD SCH (11:00)
[2016-06-24 12:32] LABS: HEMOGLOBIN 9.8 g/dL (13.7-18.0)
[2016-06-24 12:35] VITALS: BP 109/71
[2016-06-24 12:42] LABS: BLOOD UREA NITROGEN 14 mg/dL (7-18)
[2016-06-24 12:49] LABS: ASPARTATE AMINO TRANSFERASE 41 U/L (15-37)
[2016-06-24 14:02] LABS: DIFF TOTAL CELLS COUNTED 100 CELL DIFF
[2016-06-24 14:06] LABS: ANISOCYTOSIS 1+; VERIFY COUNTS? YES
[2016-06-24 14:07] LABS: POLYCHROMASIA 2+
[2016-06-24 14:08] LABS: GIANT PLATELETS 1+; LARGE PLATELETS 1+
[2016-06-24 18:33] VITALS: BP 101/66
[2016-06-24] MEDS: IMATINIB 100 MG TABLET PO SCH (19:58)
[2016-06-24] MEDS: OXYcodone IR 5MG TABLET PO PRN (21:38)
[2016-06-24] MEDS: ALLOPURINOL 300 MG TABLET PO SCH (21:38)
[2016-06-24 21:42] VITALS: BP 106/72
[2016-06-25] MEDS: MEROPENEM 1 GM in SODIUM CHLORIDE 0.9% 100 ML IV SCH ×3 (02:39→18:36)
[2016-06-25 04:03] VITALS: BP 99/67
[2016-06-25 05:34] LABS: ASPARTATE AMINO TRANSFERASE 55 U/L (15-37); BLOOD UREA NITROGEN 14 mg/dL (7-18)
[2016-06-25 07:30] VITALS: BP 104/64
[2016-06-25] MEDS: GABAPENTIN 100 MG CAPSULE PO SCH ×2 (09:49→21:44)
[2016-06-25] MEDS: HEPARIN 25,000 UNITS/500ML PMX 500 ML IV PRN ×2 (09:57→23:21)
[2016-06-25] MEDS ORDERED: SODIUM CHLORIDE 0.9% 1,000 ML IV SCH (10:00)
[2016-06-25] MEDS: NICOTINE 14MG/24 HR PATCH.TD24 TD SCH (11:00)
[2016-06-25] MEDS: SODIUM ACETATE 75 MEQ in SODIUM CHLORIDE 0.45% 1,000 ML IV SCH ×2 (11:24→19:55)
[2016-06-25] MEDS ORDERED: DIPHENHYDRAMINE 50 MG/ML, 1ML IVPush ONE ×2 (12:30→13:30)
[2016-06-25] MEDS ORDERED: ACETAMINOPHEN 325 MG TABLET PO ONE (12:30)
[2016-06-25] MEDS ORDERED: FAMOTIDINE 20 MG/2 ML IVPush ONE (12:30)
[2016-06-25] MEDS ORDERED: RITUXIMAB IV ONE (13:00)
[2016-06-25] MEDS ORDERED: SODIUM CHLORIDE 0.9% IV ONE ×3 (13:00→22:00)
[2016-06-25 13:56] VITALS: BP 108/68
[2016-06-25] MEDS: IMATINIB 100 MG TABLET PO SCH (18:38)
[2016-06-25] MEDS ORDERED: ONDANSETRON 16 MG in SODIUM CHLORIDE 0.9% 50 ML IVPB SCH (19:30)
[2016-06-25] MEDS ORDERED: METHOTREXATE IV ONE ×2 (20:00→22:00)
[2016-06-25 20:15] VITALS: BP 115/64
[2016-06-25] MEDS: ALLOPURINOL 300 MG TABLET PO SCH (21:44)
[2016-06-25] MEDS: methylPREDNISolone SOD SUCC 125 MG/2 ML IVPush SCH (23:19)
[2016-06-26] MEDS: MEROPENEM 1 GM in SODIUM CHLORIDE 0.9% 100 ML IV SCH ×2 (02:31→10:33)
[2016-06-26 04:08] VITALS: BP 119/58
[2016-06-26 05:01] LABS: HEMOGLOBIN 9.7 g/dL (13.7-18.0)
[2016-06-26] MEDS: SODIUM ACETATE 75 MEQ in SODIUM CHLORIDE 0.45% 1,000 ML IV SCH ×2 (05:13→18:31)
[2016-06-26 05:26] LABS: ASPARTATE AMINO TRANSFERASE 48 U/L (15-37); BLOOD UREA NITROGEN 11 mg/dL (7-18)
[2016-06-26] MEDS: GABAPENTIN 100 MG CAPSULE PO SCH ×2 (10:29→20:18)
[2016-06-26] MEDS: NICOTINE 14MG/24 HR PATCH.TD24 TD SCH (10:35)
[2016-06-26] MEDS: methylPREDNISolone SOD SUCC 125 MG/2 ML IVPush SCH ×2 (11:43→23:06)
[2016-06-26 11:52] VITALS: BP 119/75
[2016-06-26 13:59] VITALS: BP 118/71
[2016-06-26] MEDS ORDERED: METHOTREXATE/PF 2ML 12 MG in SODIUM CHLORIDE 0.9% 4.52 ML IT ONE (14:00)
[2016-06-26] MEDS ORDERED: LIDOCAINE 1%, 20ML ONE (14:10)
[2016-06-26] MEDS: OXYcodone IR 5MG TABLET PO PRN (15:29)
[2016-06-26 16:23] VITALS: BP 119/75
[2016-06-26] MEDS: ONDANSETRON 16 MG in SODIUM CHLORIDE 0.9% 50 ML IVPB SCH (17:14)
[2016-06-26] MEDS: DEXAMETHASONE OPHTH 0.1%, 5ML EACHEYE SCH ×2 (17:14→23:07)
[2016-06-26] MEDS: CYTARABINE IV SCH (18:30)
[2016-06-26] MEDS: SODIUM CHLORIDE 0.9% IV SCH (18:30)
[2016-06-26] MEDS: IMATINIB 100 MG TABLET PO SCH (18:31)
[2016-06-26] MEDS: ALLOPURINOL 300 MG TABLET PO SCH (20:18)
[2016-06-26] MEDS: HEPARIN 25,000 UNITS/500ML PMX 500 ML IV PRN (21:45)
[2016-06-26 21:59] VITALS: BP 112/69
[2016-06-26] MEDS: ZOLPIDEM 5MG TABLET PO PRN (23:15)
[2016-06-27 01:50] VITALS: BP 112/68
[2016-06-27] MEDS: SODIUM ACETATE 75 MEQ in SODIUM CHLORIDE 0.45% 1,000 ML IV SCH ×4 (04:00→22:23)
[2016-06-27] MEDS: SODIUM CHLORIDE 0.9% IV SCH ×3 (06:07→20:04)
[2016-06-27] MEDS: CYTARABINE IV SCH ×2 (06:07→18:39)
[2016-06-27] MEDS: DEXAMETHASONE OPHTH 0.1%, 5ML EACHEYE SCH ×4 (06:07→21:37)
[2016-06-27 07:59] VITALS: BP 102/67
[2016-06-27 08:13] LABS: HEMOGLOBIN 9.1 g/dL (13.7-18.0)
[2016-06-27 08:22] LABS: ASPARTATE AMINO TRANSFERASE 57 U/L (15-37); BLOOD UREA NITROGEN 12 mg/dL (7-18)
[2016-06-27 08:54] LABS: DIFF TOTAL CELLS COUNTED 100 CELL DIFF
[2016-06-27 08:56] LABS: ANISOCYTOSIS 1+; POLYCHROMASIA 1+; VERIFY COUNTS? YES
[2016-06-27] MEDS: GABAPENTIN 100 MG CAPSULE PO SCH ×2 (08:58→21:37)
[2016-06-27] MEDS: methylPREDNISolone SOD SUCC 125 MG/2 ML IVPush SCH ×2 (12:00→23:32)
[2016-06-27] MEDS ORDERED: LEUCOVORIN IV ONE ×2 (13:00→14:00)
[2016-06-27] MEDS ORDERED: SODIUM CHLORIDE 0.9% IV ONE ×2 (13:00→14:00)
[2016-06-27 13:27] VITALS: BP 115/72
[2016-06-27] MEDS: OXYcodone IR 5MG TABLET PO PRN (14:21)
[2016-06-27 15:42] VITALS: BP 119/67
[2016-06-27] MEDS: ONDANSETRON 16 MG in SODIUM CHLORIDE 0.9% 50 ML IVPB SCH (17:42)
[2016-06-27] MEDS: IMATINIB 100 MG TABLET PO SCH (18:40)
[2016-06-27] MEDS ORDERED: SODIUM CHLORIDE 0.9% IV SCH (19:00)
[2016-06-27] MEDS ORDERED: LEUCOVORIN IV SCH (19:00)
[2016-06-27 19:49] VITALS: BP 123/73
[2016-06-27] MEDS: LEUCOVORIN IV SCH (20:04)
[2016-06-27] MEDS: HEPARIN 25,000 UNITS/500ML PMX 500 ML IV PRN (20:49)
[2016-06-27] MEDS: ALLOPURINOL 300 MG TABLET PO SCH (21:37)
[2016-06-28] MEDS: LEUCOVORIN IV SCH ×3 (02:05→15:14)
[2016-06-28] MEDS: SODIUM CHLORIDE 0.9% IV SCH ×4 (02:05→15:14)
[2016-06-28 02:17] VITALS: BP 100/59
[2016-06-28 02:40] LABS: BLOOD UREA NITROGEN 13 mg/dL (7-18)
[2016-06-28 02:44] LABS: ASPARTATE AMINO TRANSFERASE 64 U/L (15-37)
[2016-06-28] MEDS: DEXAMETHASONE OPHTH 0.1%, 5ML EACHEYE SCH ×4 (05:48→21:52)
[2016-06-28] MEDS: SODIUM ACETATE 75 MEQ in SODIUM CHLORIDE 0.45% 1,000 ML IV SCH ×2 (05:48→15:19)
[2016-06-28] MEDS: CYTARABINE IV SCH (06:05)
[2016-06-28 06:46] LABS: HEMOGLOBIN 8.6 g/dL (13.7-18.0)
[2016-06-28 06:56] VITALS: BP 107/61
[2016-06-28 08:03] LABS: DIFF TOTAL CELLS COUNTED 100 CELL DIFF
[2016-06-28 08:08] LABS: VERIFY COUNTS? YES
[2016-06-28 08:09] LABS: ANISOCYTOSIS 1+; POIKILOCYTOSIS 1+
[2016-06-28] MEDS: GABAPENTIN 100 MG CAPSULE PO SCH ×2 (08:24→21:48)
[2016-06-28] MEDS: HEPARIN 25,000 UNITS/500ML PMX 500 ML IV PRN (10:36)
[2016-06-28] MEDS: methylPREDNISolone SOD SUCC 125 MG/2 ML IVPush SCH (11:27)
[2016-06-28 14:58] VITALS: BP 123/68
[2016-06-28] MEDS: IMATINIB 100 MG TABLET PO SCH (18:05)
[2016-06-28 19:48] VITALS: BP 107/68
[2016-06-28] MEDS ORDERED: LEUCOVORIN IV ONE (21:00)
[2016-06-28] MEDS ORDERED: SODIUM CHLORIDE 0.9% IV ONE (21:00)
[2016-06-28] MEDS: POLYETHYLENE GLYCOL 17 GM PACKET PO PRN (21:48)
[2016-06-28] MEDS: DOCUSATE 100 MG CAPSULE PO PRN (21:48)
[2016-06-28] MEDS: OXYcodone IR 5MG TABLET PO PRN (21:49)
[2016-06-28] MEDS: ALLOPURINOL 300 MG TABLET PO SCH (21:49)
[2016-06-28] MEDS: ZOLPIDEM 5MG TABLET PO PRN (22:47)
[2016-06-29] MEDS: SODIUM ACETATE 75 MEQ in SODIUM CHLORIDE 0.45% 1,000 ML IV SCH ×2 (00:21→09:59)
[2016-06-29] MEDS: ZOLPIDEM 5MG TABLET PO PRN ×2 (00:26→21:05)
[2016-06-29] MEDS: HEPARIN 25,000 UNITS/500ML PMX 500 ML IV PRN ×2 (00:26→13:26)
[2016-06-29 02:30] VITALS: BP 108/55
[2016-06-29] MEDS: DEXAMETHASONE OPHTH 0.1%, 5ML EACHEYE SCH ×4 (05:41→21:10)
[2016-06-29 06:31] LABS: ASPARTATE AMINO TRANSFERASE 105 U/L (15-37); BLOOD UREA NITROGEN 13 mg/dL (7-18)
[2016-06-29 06:34] LABS: HEMOGLOBIN 7.1 g/dL (13.7-18.0)
[2016-06-29 07:38] VITALS: BP 102/64
[2016-06-29] MEDS: GABAPENTIN 100 MG CAPSULE PO SCH ×2 (09:58→20:47)
[2016-06-29 13:34] VITALS: BP 107/67
[2016-06-29] MEDS: IMATINIB 100 MG TABLET PO SCH (17:43)
[2016-06-29] MEDS: SODIUM CHLORIDE 0.9% 1,000 ML IV SCH (17:45)
[2016-06-29] MEDS: TBO-FILGRASTIM 480 MCG/0.8 ML SQ SCH (17:46)
[2016-06-29 19:12] VITALS: BP 104/64
[2016-06-29] MEDS: ALLOPURINOL 300 MG TABLET PO SCH (20:47)
[2016-06-30] MEDS: ZOLPIDEM 5MG TABLET PO PRN (01:27)
[2016-06-30 02:00] VITALS: BP 97/87
[2016-06-30] MEDS: HEPARIN 25,000 UNITS/500ML PMX 500 ML IV PRN ×2 (05:42→17:46)
[2016-06-30] MEDS: SODIUM CHLORIDE 0.9% 1,000 ML IV SCH ×2 (05:44→20:22)
[2016-06-30] MEDS: DEXAMETHASONE OPHTH 0.1%, 5ML EACHEYE SCH ×4 (05:45→20:22)
[2016-06-30 05:52] LABS: HEMOGLOBIN 7.7 g/dL (13.7-18.0)
[2016-06-30 06:03] LABS: BLOOD UREA NITROGEN 13 mg/dL (7-18)
[2016-06-30 06:04] LABS: DIFF TOTAL CELLS COUNTED 100 CELL DIFF
[2016-06-30 06:05] LABS: VERIFY COUNTS? YES
[2016-06-30 06:06] LABS: ANISOCYTOSIS 1+; ASPARTATE AMINO TRANSFERASE 151 U/L (15-37); HYPOCHROMIA 1+
[2016-06-30 06:25] VITALS: BP 97/62
[2016-06-30] MEDS: GABAPENTIN 100 MG CAPSULE PO SCH ×2 (08:56→20:21)
[2016-06-30] MEDS: OXYcodone IR 5MG TABLET PO PRN ×3 (08:56→20:21)
[2016-06-30 13:45] VITALS: BP 99/64
[2016-06-30] MEDS: TBO-FILGRASTIM 480 MCG/0.8 ML SQ SCH (17:40)
[2016-06-30] MEDS: IMATINIB 100 MG TABLET PO SCH (17:48)
[2016-06-30 19:34] VITALS: BP 105/69
[2016-06-30] MEDS: ALLOPURINOL 300 MG TABLET PO SCH (20:21)
[2016-07-01 01:23] VITALS: BP 104/61
[2016-07-01] MEDS: DEXAMETHASONE OPHTH 0.1%, 5ML EACHEYE SCH ×4 (04:55→20:19)
[2016-07-01 05:16] LABS: HEMOGLOBIN 7.4 g/dL (13.7-18.0)
[2016-07-01 05:51] LABS: ASPARTATE AMINO TRANSFERASE 83 U/L (15-37); BLOOD UREA NITROGEN 13 mg/dL (7-18)
[2016-07-01 05:53] LABS: DIFF TOTAL CELLS COUNTED 100 CELL DIFF
[2016-07-01 05:54] LABS: ANISOCYTOSIS 1+; VERIFY COUNTS? YES
[2016-07-01] MEDS: HEPARIN 25,000 UNITS/500ML PMX 500 ML IV PRN ×2 (06:22→19:44)
[2016-07-01 07:52] VITALS: BP 92/61
[2016-07-01] MEDS: GABAPENTIN 100 MG CAPSULE PO SCH ×2 (08:32→20:19)
[2016-07-01] MEDS: OXYcodone IR 5MG TABLET PO PRN (11:46)
[2016-07-01] MEDS: SODIUM CHLORIDE 0.9% 1,000 ML IV SCH (11:48)
[2016-07-01 13:59] VITALS: BP 104/65
[2016-07-01] MEDS: TBO-FILGRASTIM 480 MCG/0.8 ML SQ SCH (17:23)
[2016-07-01] MEDS: IMATINIB 100 MG TABLET PO SCH (17:29)
[2016-07-01] MEDS: POLYETHYLENE GLYCOL 17 GM PACKET PO PRN (17:50)
[2016-07-01 19:19] VITALS: BP 100/64
[2016-07-01] MEDS: ALLOPURINOL 300 MG TABLET PO SCH (20:19)
[2016-07-02] VITALS (10 sets, daily range): BP systolic 95–121; BP diastolic 53–71
[2016-07-02] MEDS: SODIUM CHLORIDE 0.9% 1,000 ML IV SCH ×2 (00:08→20:56)
[2016-07-02 04:50] LABS: ASPARTATE AMINO TRANSFERASE 34 U/L (15-37); BLOOD UREA NITROGEN 8 mg/dL (7-18)
[2016-07-02] MEDS: DEXAMETHASONE OPHTH 0.1%, 5ML EACHEYE SCH ×4 (05:37→21:47)
[2016-07-02] MEDS: ACETAMINOPHEN 325 MG TABLET PO PRN (09:11)
[2016-07-02] MEDS: GABAPENTIN 100 MG CAPSULE PO SCH ×2 (09:11→21:47)
[2016-07-02] MEDS ORDERED: DIPHENHYDRAMINE 50 MG/ML, 1ML IVPush ONE ×2 (09:30→16:00)
[2016-07-02] MEDS: HEPARIN 25,000 UNITS/500ML PMX 500 ML IV PRN ×2 (10:39→18:30)
[2016-07-02] MEDS ORDERED: CYTARABINE IV ONE (11:00)
[2016-07-02] MEDS ORDERED: SODIUM CHLORIDE 0.9% IV ONE ×2 (11:00→16:30)
[2016-07-02] MEDS: TBO-FILGRASTIM 480 MCG/0.8 ML SQ SCH (15:34)
[2016-07-02] MEDS ORDERED: FAMOTIDINE 20 MG/2 ML IVPush ONE (16:00)
[2016-07-02] MEDS ORDERED: ACETAMINOPHEN 325 MG TABLET PO ONE (16:00)
[2016-07-02] MEDS ORDERED: RITUXIMAB IV ONE (16:30)
[2016-07-02] MEDS: IMATINIB 100 MG TABLET PO SCH (18:34)
[2016-07-02] MEDS: ALLOPURINOL 300 MG TABLET PO SCH (21:47)
[2016-07-03 03:07] VITALS: BP 102/61
[2016-07-03 03:39] LABS: BLOOD UREA NITROGEN 11 mg/dL (7-18)
[2016-07-03 03:42] LABS: HEMOGLOBIN 8.4 g/dL (13.7-18.0)
[2016-07-03 03:46] LABS: ASPARTATE AMINO TRANSFERASE 20 U/L (15-37)
[2016-07-03 03:51] LABS: DIFF TOTAL CELLS COUNTED 100 CELL DIFF
[2016-07-03 04:33] LABS: VERIFY COUNTS? YES
[2016-07-03 04:34] LABS: ANISOCYTOSIS 1+
[2016-07-03 04:37] LABS: POIKILOCYTOSIS 1+
[2016-07-03] MEDS: HEPARIN 25,000 UNITS/500ML PMX 500 ML IV PRN ×2 (06:31→19:16)
[2016-07-03] MEDS: DEXAMETHASONE OPHTH 0.1%, 5ML EACHEYE SCH ×4 (06:31→22:30)
[2016-07-03 08:34] VITALS: BP 104/71
[2016-07-03] MEDS: GABAPENTIN 100 MG CAPSULE PO SCH ×2 (09:56→22:30)
[2016-07-03] MEDS: SODIUM CHLORIDE 0.9% 1,000 ML IV SCH (10:59)
[2016-07-03 14:44] VITALS: BP 112/66
[2016-07-03] MEDS: TBO-FILGRASTIM 480 MCG/0.8 ML SQ SCH (17:30)
[2016-07-03] MEDS: IMATINIB 100 MG TABLET PO SCH (17:50)
[2016-07-03 19:12] VITALS: BP 106/67
[2016-07-03] MEDS: ALLOPURINOL 300 MG TABLET PO SCH (22:30)
[2016-07-04] VITALS (7 sets, daily range): BP systolic 88–115; BP diastolic 46–67
[2016-07-04] MEDS: SODIUM CHLORIDE 0.9% 1,000 ML IV SCH ×2 (00:58→15:10)
[2016-07-04 05:47] LABS: HEMOGLOBIN 8.3 g/dL (13.7-18.0)
[2016-07-04 05:59] LABS: ASPARTATE AMINO TRANSFERASE 23 U/L (15-37); BLOOD UREA NITROGEN 11 mg/dL (7-18)
[2016-07-04 06:10] LABS: DIFF TOTAL CELLS COUNTED 100 CELL DIFF
[2016-07-04 06:17] LABS: VERIFY COUNTS? YES
[2016-07-04 06:18] LABS: ANISOCYTOSIS 1+; POIKILOCYTOSIS 1+
[2016-07-04] MEDS: DEXAMETHASONE OPHTH 0.1%, 5ML EACHEYE SCH ×4 (06:48→21:00)
[2016-07-04] MEDS: GABAPENTIN 100 MG CAPSULE PO SCH ×2 (08:32→21:34)
[2016-07-04] MEDS: HEPARIN 25,000 UNITS/500ML PMX 500 ML IV PRN ×2 (08:32→22:22)
[2016-07-04] MEDS: POLYETHYLENE GLYCOL 17 GM PACKET PO PRN (15:09)
[2016-07-04] MEDS: DIPHENHYDRAMINE 50 MG/ML, 1ML IVPush PRN (15:15)
[2016-07-04] MEDS: METOCLOPRAMIDE 10MG TABLET PO PRN (15:18)
[2016-07-04] MEDS: IMATINIB 100 MG TABLET PO SCH (18:06)
[2016-07-04] MEDS: TBO-FILGRASTIM 480 MCG/0.8 ML SQ SCH (18:07)
[2016-07-04] MEDS: CALCIUM CARBONATE 500 MG TAB.CHEW PO PRN (19:47)
[2016-07-04] MEDS ORDERED: PHARMACOKINETIC CONSULTATION MC ONE (21:30)
[2016-07-04] MEDS ORDERED: PHARMACOKINETIC MONITORING MC PRN (21:30)
[2016-07-04] MEDS ORDERED: VANCOMYCIN PER PHARMACY MC PRN (21:30)
[2016-07-04] MEDS: ALLOPURINOL 300 MG TABLET PO SCH (21:34)
[2016-07-04] MEDS: OXYcodone IR 5MG TABLET PO PRN (21:34)
[2016-07-04] MEDS: VANCOMYCIN 1,600 MG in SODIUM CHLORIDE 0.9% 250 ML IV SCH (22:08)
[2016-07-04] MEDS: ACETAMINOPHEN 325 MG TABLET PO PRN (22:24)
[2016-07-04] MEDS ORDERED: SODIUM CHLORIDE 0.9%, 500ML IVBOLUS ONE (22:30)
[2016-07-05 01:19] VITALS: BP 120/54
[2016-07-05] MEDS ORDERED: MEPERIDINE/PF 25MG/0.5ML IVPush PRN (02:00)
[2016-07-05] MEDS ORDERED: NS + 20MEQ KCL 1,000 ML IV SCH (02:00)
[2016-07-05] MEDS ORDERED: MEPERIDINE/PF 50 MG/ML ONE (02:01)
[2016-07-05] MEDS: ONDANSETRON 2MG/ML, 2ML IVP PRN (02:16)
[2016-07-05 05:21] LABS: BLOOD UREA NITROGEN 11 mg/dL (7-18)
[2016-07-05 05:22] LABS: ASPARTATE AMINO TRANSFERASE 17 U/L (15-37); HEMOGLOBIN 7.2 g/dL (13.7-18.0)
[2016-07-05] MEDS: DEXAMETHASONE OPHTH 0.1%, 5ML EACHEYE SCH ×4 (06:00→21:00)
[2016-07-05 06:34] LABS: DIFF TOTAL CELLS COUNTED 25 CELL DIFFERENTIAL
[2016-07-05 06:35] LABS: ANISOCYTOSIS 1+; VERIFY COUNTS? YES
[2016-07-05] MEDS: PIPERACILLIN/TAZO/PMX 3.375GM 50 ML IV SCH ×5 (06:40→23:41)
[2016-07-05 07:59] VITALS: BP 85/49
[2016-07-05] MEDS: HEPARIN 25,000 UNITS/500ML PMX 500 ML IV PRN ×2 (08:55→22:04)
[2016-07-05] MEDS: GABAPENTIN 100 MG CAPSULE PO SCH ×2 (08:58→21:48)
[2016-07-05] MEDS ORDERED: SODIUM CHLORIDE 0.9%, 500ML IVBOLUS ONE (11:00)
[2016-07-05 12:40] VITALS: BP 92/55
[2016-07-05] MEDS: VANCOMYCIN 1,600 MG in SODIUM CHLORIDE 0.9% 250 ML IV SCH (13:15)
[2016-07-05] MEDS: OXYcodone IR 5MG TABLET PO PRN (13:20)
[2016-07-05] MEDS: MICAFUNGIN 100 MG in SODIUM CHLORIDE 0.9% 100 ML IV SCH (14:28)
[2016-07-05] MEDS: NS + 20MEQ KCL 1,000 ML IV SCH ×2 (15:23→21:40)
[2016-07-05] MEDS: TBO-FILGRASTIM 480 MCG/0.8 ML SQ SCH (18:35)
[2016-07-05] MEDS: IMATINIB 100 MG TABLET PO SCH (18:40)
[2016-07-05 20:18] VITALS: BP 93/57
[2016-07-05] MEDS: CALCIUM CARBONATE 500 MG TAB.CHEW PO PRN (21:48)
[2016-07-05] MEDS: DOCUSATE 100 MG CAPSULE PO PRN (21:48)
[2016-07-05] MEDS: ALLOPURINOL 300 MG TABLET PO SCH (21:48)
[2016-07-06] VITALS (12 sets, daily range): BP systolic 84–129; BP diastolic 38–79
[2016-07-06] MEDS: VANCOMYCIN 1,600 MG in SODIUM CHLORIDE 0.9% 250 ML IV SCH ×2 (00:57→13:26)
[2016-07-06] MEDS ORDERED: NS + 20MEQ KCL 1,000 ML IV SCH (02:00)
[2016-07-06] MEDS: NS + 20MEQ KCL 1,000 ML IV SCH ×2 (04:20→17:11)
[2016-07-06 05:18] LABS: ASPARTATE AMINO TRANSFERASE 11 U/L (15-37); BLOOD UREA NITROGEN 7 mg/dL (7-18)
[2016-07-06] MEDS: DEXAMETHASONE OPHTH 0.1%, 5ML EACHEYE SCH ×2 (06:00→10:48)
[2016-07-06] MEDS: PIPERACILLIN/TAZO/PMX 3.375GM 50 ML IV SCH ×3 (06:10→18:20)
[2016-07-06 06:52] LABS: DIFF TOTAL CELLS COUNTED 100 CELL DIFF
[2016-07-06 07:07] LABS: ANISOCYTOSIS 1+; POIKILOCYTOSIS 1+; VERIFY COUNTS? YES
[2016-07-06 07:08] LABS: MICROCYTOSIS 1+
[2016-07-06] MEDS ORDERED: MAGNESIUM SULFATE PMX 2GM/50ML 50 ML IV ONE (08:30)
[2016-07-06] MEDS: GABAPENTIN 100 MG CAPSULE PO SCH ×2 (09:15→20:01)
[2016-07-06] MEDS: OXYcodone IR 5MG TABLET PO PRN ×3 (09:15→18:34)
[2016-07-06] MEDS: HEPARIN 25,000 UNITS/500ML PMX 500 ML IV PRN ×2 (11:13→22:55)
[2016-07-06] MEDS ORDERED: [UNRECOGNIZED DRUG - REMARK] XX PRN (13:00)
[2016-07-06] MEDS: MICAFUNGIN 100 MG in SODIUM CHLORIDE 0.9% 100 ML IV SCH (14:01)
[2016-07-06] MEDS: IMATINIB 100 MG TABLET PO SCH (18:15)
[2016-07-06] MEDS: TBO-FILGRASTIM 480 MCG/0.8 ML SQ SCH (18:20)
[2016-07-06] MEDS: CALCIUM CARBONATE 500 MG TAB.CHEW PO PRN ×2 (18:37→22:12)
[2016-07-06] MEDS: ALLOPURINOL 300 MG TABLET PO SCH (20:01)
[2016-07-06] MEDS: ONDANSETRON 2MG/ML, 2ML IVP PRN (20:01)
[2016-07-07] VITALS (7 sets, daily range): BP systolic 93–108; BP diastolic 51–98
[2016-07-07] MEDS: NS + 20MEQ KCL 1,000 ML IV SCH ×3 (00:16→20:53)
[2016-07-07] MEDS: PIPERACILLIN/TAZO/PMX 3.375GM 50 ML IV SCH ×4 (00:16→18:17)
[2016-07-07] MEDS: VANCOMYCIN 1,600 MG in SODIUM CHLORIDE 0.9% 250 ML IV SCH ×2 (01:19→13:00)
[2016-07-07 01:50] LABS: ASPARTATE AMINO TRANSFERASE 10 U/L (15-37); BLOOD UREA NITROGEN 5 mg/dL (7-18)
[2016-07-07 01:59] LABS: HEMOGLOBIN 7.3 g/dL (13.7-18.0)
[2016-07-07 02:36] LABS: DIFF TOTAL CELLS COUNTED 100 CELL DIFF
[2016-07-07 03:05] LABS: VERIFY COUNTS? YES
[2016-07-07 03:06] LABS: ANISOCYTOSIS 1+; POLYCHROMASIA 1+
[2016-07-07 03:07] LABS: POIKILOCYTOSIS 1+
[2016-07-07] MEDS: CALCIUM CARBONATE 500 MG TAB.CHEW PO PRN (08:41)
[2016-07-07] MEDS: GABAPENTIN 100 MG CAPSULE PO SCH ×2 (08:41→20:52)
[2016-07-07] MEDS: HEPARIN 25,000 UNITS/500ML PMX 500 ML IV PRN ×2 (09:45→20:52)
[2016-07-07] MEDS: MICAFUNGIN 100 MG in SODIUM CHLORIDE 0.9% 100 ML IV SCH (14:41)
[2016-07-07] MEDS: TBO-FILGRASTIM 480 MCG/0.8 ML SQ SCH (17:30)
[2016-07-07] MEDS: IMATINIB 100 MG TABLET PO SCH (17:53)
[2016-07-07] MEDS: OXYcodone IR 5MG TABLET PO PRN ×2 (18:23→20:52)
[2016-07-07] MEDS: ALLOPURINOL 300 MG TABLET PO SCH (20:52)
[2016-07-07] MEDS: MORPHINE SULFATE 4 MG/ML, 1ML IVPush PRN (23:11)
[2016-07-08] MEDS: PIPERACILLIN/TAZO/PMX 3.375GM 50 ML IV SCH ×4 (00:01→18:49)
[2016-07-08 02:25] VITALS: BP 104/57
[2016-07-08] MEDS: MORPHINE SULFATE 4 MG/ML, 1ML IVPush PRN ×2 (02:25→07:25)
[2016-07-08 02:28] LABS: HEMOGLOBIN 7.8 g/dL (13.7-18.0)
[2016-07-08 02:32] LABS: ASPARTATE AMINO TRANSFERASE 12 U/L (15-37); BLOOD UREA NITROGEN 7 mg/dL (7-18)
[2016-07-08] MEDS: CALCIUM CARBONATE 500 MG TAB.CHEW PO PRN (02:32)
[2016-07-08 02:53] LABS: DIFF TOTAL CELLS COUNTED 100 CELL DIFF
[2016-07-08 03:00] LABS: VERIFY COUNTS? YES
[2016-07-08 03:01] LABS: ANISOCYTOSIS 1+
[2016-07-08 03:02] LABS: POLYCHROMASIA 1+
[2016-07-08 03:05] LABS: HYPOCHROMIA 1+
[2016-07-08] MEDS: NS + 20MEQ KCL 1,000 ML IV SCH ×2 (05:25→15:04)
[2016-07-08] MEDS: HEPARIN 25,000 UNITS/500ML PMX 500 ML IV PRN ×2 (07:27→17:27)
[2016-07-08] MEDS: GABAPENTIN 100 MG CAPSULE PO SCH ×2 (08:50→22:02)
[2016-07-08 08:51] VITALS: BP 103/56
[2016-07-08] MEDS: OXYcodone IR 5MG TABLET PO PRN ×2 (14:31→22:13)
[2016-07-08] MEDS: IMATINIB 100 MG TABLET PO SCH (17:29)
[2016-07-08 20:40] VITALS: BP 105/66
[2016-07-08] MEDS: ALLOPURINOL 300 MG TABLET PO SCH (22:02)
[2016-07-09] MEDS: NS + 20MEQ KCL 1,000 ML IV SCH ×2 (00:06→10:32)
[2016-07-09] MEDS: PIPERACILLIN/TAZO/PMX 3.375GM 50 ML IV SCH ×4 (00:06→20:22)
[2016-07-09 02:50] VITALS: BP 100/59
[2016-07-09] MEDS: HEPARIN 25,000 UNITS/500ML PMX 500 ML IV PRN (03:37)
[2016-07-09 04:17] LABS: HEMOGLOBIN 8.2 g/dL (13.7-18.0)
[2016-07-09 04:22] LABS: BLOOD UREA NITROGEN 4 mg/dL (7-18)
[2016-07-09 04:23] LABS: ASPARTATE AMINO TRANSFERASE 17 U/L (15-37)
[2016-07-09 04:56] LABS: DIFF TOTAL CELLS COUNTED 100 CELL DIFF
[2016-07-09 05:53] LABS: ANISOCYTOSIS 1+; VERIFY COUNTS? YES
[2016-07-09 05:55] LABS: MICROCYTOSIS 1+
[2016-07-09 08:02] VITALS: BP 101/45
[2016-07-09] MEDS: GABAPENTIN 100 MG CAPSULE PO SCH ×2 (10:32→20:22)
[2016-07-09 12:53] VITALS: BP 131/66
[2016-07-09] MEDS: ENOXAPARIN 80 MG/0.8 ML SQ SCH (15:42)
[2016-07-09] MEDS: IMATINIB 100 MG TABLET PO SCH (18:20)
[2016-07-09] MEDS: ALLOPURINOL 300 MG TABLET PO SCH (20:22)
[2016-07-09] MEDS: OXYcodone IR 5MG TABLET PO PRN (20:28)
[2016-07-09] MEDS: CALCIUM CARBONATE 500 MG TAB.CHEW PO PRN (20:28)
[2016-07-09 20:35] VITALS: BP 140/75
[2016-07-10 02:28] VITALS: BP 101/57
[2016-07-10] MEDS: ENOXAPARIN 80 MG/0.8 ML SQ SCH (02:58)
[2016-07-10] MEDS: PIPERACILLIN/TAZO/PMX 3.375GM 50 ML IV SCH ×4 (03:00→21:08)
[2016-07-10 03:38] LABS: HEMOGLOBIN 8.2 g/dL (13.7-18.0)
[2016-07-10 03:45] LABS: ASPARTATE AMINO TRANSFERASE 20 U/L (15-37); BLOOD UREA NITROGEN 9 mg/dL (7-18)
[2016-07-10 04:12] LABS: DIFF TOTAL CELLS COUNTED 100 CELL DIFF
[2016-07-10 04:16] LABS: VERIFY COUNTS? YES
[2016-07-10 04:17] LABS: ANISOCYTOSIS 1+; HYPOCHROMIA 1+; POLYCHROMASIA 1+
[2016-07-10 08:10] VITALS: BP 137/72
[2016-07-10] MEDS: GABAPENTIN 100 MG CAPSULE PO SCH ×2 (11:05→21:07)
[2016-07-10 13:00] VITALS: BP 114/63
[2016-07-10] MEDS: NS + 20MEQ KCL 1,000 ML IV SCH (16:34)
[2016-07-10] MEDS: IMATINIB 100 MG TABLET PO SCH (17:58)
[2016-07-10 18:23] VITALS: BP 110/69
[2016-07-10 18:31] VITALS: BP 113/66
[2016-07-10] MEDS: ALLOPURINOL 300 MG TABLET PO SCH (21:08)
[2016-07-10] MEDS: OXYcodone IR 5MG TABLET PO PRN (21:13)
[2016-07-11] MEDS: OFLOXACIN OPHTH 0.3%, 5ML EACHEYE SCH ×6 (00:34→21:56)
[2016-07-11] MEDS: PIPERACILLIN/TAZO/PMX 3.375GM 50 ML IV SCH ×4 (03:12→21:56)
[2016-07-11] MEDS: NS + 20MEQ KCL 1,000 ML IV SCH ×2 (03:12→14:06)
[2016-07-11 03:41] VITALS: BP 106/58
[2016-07-11 03:43] LABS: HEMOGLOBIN 8.5 g/dL (13.7-18.0)
[2016-07-11 03:49] LABS: ASPARTATE AMINO TRANSFERASE 23 U/L (15-37); BLOOD UREA NITROGEN 10 mg/dL (7-18)
[2016-07-11 04:04] LABS: DIFF TOTAL CELLS COUNTED 100 CELL DIFF
[2016-07-11 04:09] LABS: VERIFY COUNTS? YES
[2016-07-11 04:10] LABS: ANISOCYTOSIS 1+; HYPOCHROMIA 1+; POLYCHROMASIA 1+
[2016-07-11 08:15] VITALS: BP 104/68
[2016-07-11] MEDS: GABAPENTIN 100 MG CAPSULE PO SCH ×2 (09:33→21:56)
[2016-07-11] MEDS ORDERED: LIDOCAINE 1%, 20ML ONE (10:07)
[2016-07-11] MEDS ORDERED: MIDAZOLAM 1 MG/ML, 5ML ONE (10:31)
[2016-07-11] MEDS ORDERED: NALOXONE 1 MG/ML, 2ML ONE (10:32)
[2016-07-11] MEDS ORDERED: FENTANYL PF 100 MCG/2ML ONE (10:32)
[2016-07-11] MEDS ORDERED: FLUMAZENIL 0.1 MG/1 ML, 5ML ONE (10:32)
[2016-07-11 13:10] VITALS: BP 117/61
[2016-07-11] MEDS: ENOXAPARIN 80 MG/0.8 ML SQ SCH (15:51)
[2016-07-11] MEDS: ACETAMINOPHEN 325 MG TABLET PO PRN (15:59)
[2016-07-11] MEDS: IMATINIB 100 MG TABLET PO SCH (17:52)
[2016-07-11] MEDS: ONDANSETRON 2MG/ML, 2ML IVP PRN (18:19)
[2016-07-11 21:15] VITALS: BP 112/73
[2016-07-11] MEDS: ALLOPURINOL 300 MG TABLET PO SCH (21:56)
[2016-07-12] MEDS: NS + 20MEQ KCL 1,000 ML IV SCH ×3 (00:40→21:40)
[2016-07-12] MEDS: OFLOXACIN OPHTH 0.3%, 5ML EACHEYE SCH ×6 (00:40→21:40)
[2016-07-12] MEDS: ENOXAPARIN 80 MG/0.8 ML SQ SCH ×2 (03:00→16:59)
[2016-07-12] MEDS: PIPERACILLIN/TAZO/PMX 3.375GM 50 ML IV SCH ×4 (04:11→21:40)
[2016-07-12 04:15] VITALS: BP 103/65
[2016-07-12 05:19] LABS: ASPARTATE AMINO TRANSFERASE 29 U/L (15-37); BLOOD UREA NITROGEN 8 mg/dL (7-18)
[2016-07-12 06:45] LABS: HEMOGLOBIN 9.2 g/dL (13.7-18.0)
[2016-07-12] MEDS ORDERED: CATHFLO-ALTEPLASE 2 MG/2 ML CATHFLUSH ONE ×2 (07:00)
[2016-07-12 07:13] LABS: DIFF TOTAL CELLS COUNTED 100 CELL DIFF
[2016-07-12 07:17] LABS: VERIFY COUNTS? YES
[2016-07-12 07:18] LABS: ANISOCYTOSIS 1+
[2016-07-12 07:19] LABS: POLYCHROMASIA 1+
[2016-07-12 07:34] VITALS: BP 99/57
[2016-07-12] MEDS: GABAPENTIN 100 MG CAPSULE PO SCH ×2 (11:19→21:40)
[2016-07-12] MEDS: OXYcodone IR 5MG TABLET PO PRN (11:27)
[2016-07-12 14:25] VITALS: BP 106/67
[2016-07-12] MEDS: IMATINIB 100 MG TABLET PO SCH (17:54)
[2016-07-12] MEDS: ONDANSETRON 2MG/ML, 2ML IVP PRN (18:33)
[2016-07-12 18:41] VITALS: BP 104/69
[2016-07-12] MEDS: ALLOPURINOL 300 MG TABLET PO SCH (21:40)
[2016-07-13] MEDS: OFLOXACIN OPHTH 0.3%, 5ML EACHEYE SCH ×7 (00:57→20:38)
[2016-07-13] MEDS: NS + 20MEQ KCL 1,000 ML IV SCH ×3 (02:38→23:25)
[2016-07-13 02:55] VITALS: BP 104/65
[2016-07-13] MEDS: ENOXAPARIN 80 MG/0.8 ML SQ SCH ×2 (03:00→15:28)
[2016-07-13] MEDS: PIPERACILLIN/TAZO/PMX 3.375GM 50 ML IV SCH ×4 (03:02→20:38)
[2016-07-13 03:32] LABS: HEMOGLOBIN 8.7 g/dL (13.7-18.0)
[2016-07-13 03:40] LABS: ASPARTATE AMINO TRANSFERASE 20 U/L (15-37); BLOOD UREA NITROGEN 8 mg/dL (7-18)
[2016-07-13 04:08] LABS: DIFF TOTAL CELLS COUNTED 100 CELL DIFF
[2016-07-13 04:14] LABS: ANISOCYTOSIS 1+; VERIFY COUNTS? YES
[2016-07-13 04:15] LABS: HYPOCHROMIA 1+; POLYCHROMASIA 1+
[2016-07-13] MEDS: ONDANSETRON 2MG/ML, 2ML IVP PRN (06:31)
[2016-07-13] MEDS: GABAPENTIN 100 MG CAPSULE PO SCH ×2 (08:50→20:38)
[2016-07-13 08:56] VITALS: BP 101/58
[2016-07-13 14:42] VITALS: BP 114/63
[2016-07-13] MEDS: IMATINIB 100 MG TABLET PO SCH (17:42)
[2016-07-13] MEDS: ALLOPURINOL 300 MG TABLET PO SCH (20:38)
[2016-07-13 20:47] VITALS: BP 118/80
[2016-07-14] MEDS: OFLOXACIN OPHTH 0.3%, 5ML EACHEYE SCH ×2 (00:30→03:50)
[2016-07-14] MEDS: ENOXAPARIN 80 MG/0.8 ML SQ SCH ×2 (03:00→15:00)
[2016-07-14 03:45] VITALS: BP 101/56
[2016-07-14] MEDS: PIPERACILLIN/TAZO/PMX 3.375GM 50 ML IV SCH ×4 (03:50→21:00)
[2016-07-14 04:08] LABS: HEMOGLOBIN 8.9 g/dL (13.7-18.0)
[2016-07-14 04:27] LABS: DIFF TOTAL CELLS COUNTED 200 CELL DIFF
[2016-07-14 04:28] LABS: VERIFY COUNTS? YES
[2016-07-14 04:29] LABS: ANISOCYTOSIS 1+; POLYCHROMASIA 1+
[2016-07-14 08:13] VITALS: BP 105/57
[2016-07-14] MEDS: GABAPENTIN 100 MG CAPSULE PO SCH ×2 (08:41→21:00)
[2016-07-14] MEDS: NS + 20MEQ KCL 1,000 ML IV SCH ×2 (08:41→17:12)
[2016-07-14 13:14] VITALS: BP 111/72
[2016-07-14] MEDS: IMATINIB 100 MG TABLET PO SCH (17:15)
[2016-07-14 20:18] VITALS: BP 116/75
[2016-07-14] MEDS: ALLOPURINOL 300 MG TABLET PO SCH (21:00)
[2016-07-14] MEDS: OXYcodone IR 5MG TABLET PO PRN (21:00)
[2016-07-14] MEDS: ZOLPIDEM 5MG TABLET PO PRN (22:38)
[2016-07-15] MEDS: PIPERACILLIN/TAZO/PMX 3.375GM 50 ML IV SCH ×2 (01:34→09:27)
[2016-07-15] MEDS: ENOXAPARIN 80 MG/0.8 ML SQ SCH ×2 (01:35→15:10)
[2016-07-15] MEDS: NS + 20MEQ KCL 1,000 ML IV SCH ×3 (01:35→22:44)
[2016-07-15 02:50] VITALS: BP 99/59
[2016-07-15 05:05] LABS: HEMOGLOBIN 9.3 g/dL (13.7-18.0)
[2016-07-15 05:42] LABS: DIFF TOTAL CELLS COUNTED 100 CELL DIFF
[2016-07-15 05:45] LABS: ANISOCYTOSIS 1+; POIKILOCYTOSIS 1+
[2016-07-15 05:47] LABS: VERIFY COUNTS? YES
[2016-07-15 07:33] VITALS: BP 101/67
[2016-07-15] MEDS: GABAPENTIN 100 MG CAPSULE PO SCH ×2 (09:29→20:39)
[2016-07-15] MEDS: OXYcodone IR 5MG TABLET PO PRN ×3 (11:51→20:13)
[2016-07-15 14:12] VITALS: BP 117/77
[2016-07-15] MEDS: IMATINIB 100 MG TABLET PO SCH (17:56)
[2016-07-15 20:12] VITALS: BP 112/75
[2016-07-15] MEDS: ALLOPURINOL 300 MG TABLET PO SCH (20:39)
[2016-07-15] MEDS: ONDANSETRON 2MG/ML, 2ML IVP PRN (21:08)
[2016-07-15] MEDS: ZOLPIDEM 5MG TABLET PO PRN (22:09)
[2016-07-16] MEDS: ENOXAPARIN 80 MG/0.8 ML SQ SCH ×3 (02:43→17:35)
[2016-07-16 05:09] VITALS: BP 99/67
[2016-07-16 05:25] LABS: ASPARTATE AMINO TRANSFERASE 18 U/L (15-37); BLOOD UREA NITROGEN 7 mg/dL (7-18); C-REACTIVE PROTEIN, QUANT 0.79 mg/dL (0.02-0.49)
[2016-07-16 05:32] LABS: HEMOGLOBIN 9.4 g/dL (13.7-18.0)
[2016-07-16] MEDS: NS + 20MEQ KCL 1,000 ML IV SCH ×2 (06:01→17:34)
[2016-07-16 06:17] LABS: DIFF TOTAL CELLS COUNTED 100 CELL DIFF
[2016-07-16 06:20] LABS: ANISOCYTOSIS 1+; POLYCHROMASIA 1+; VERIFY COUNTS? YES
[2016-07-16 06:21] LABS: HYPOCHROMIA 1+
[2016-07-16 07:36] VITALS: BP 100/67
[2016-07-16] MEDS ORDERED: FAMOTIDINE 20 MG/2 ML IVPush ONE (09:30)
[2016-07-16] MEDS ORDERED: ACETAMINOPHEN 325 MG TABLET PO ONE (09:30)
[2016-07-16] MEDS ORDERED: ONDANSETRON IVPB SCH (09:30)
[2016-07-16] MEDS ORDERED: DIPHENHYDRAMINE 50 MG/ML, 1ML IVPush ONE (09:30)
[2016-07-16] MEDS ORDERED: DEXAMETHASONE IVPB SCH (09:30)
[2016-07-16] MEDS ORDERED: SODIUM CHLORIDE 0.9% IVPB SCH (09:30)
[2016-07-16] MEDS ORDERED: FOSAPREPITANT 150 MG in SODIUM CHLORIDE 0.9% 150 ML IV ONE (10:00)
[2016-07-16] MEDS: GABAPENTIN 100 MG CAPSULE PO SCH ×2 (10:27→20:56)
[2016-07-16] MEDS ORDERED: RITUXIMAB 750 MG in SODIUM CHLORIDE 0.9% 250 ML IV ONE (10:30)
[2016-07-16 13:33] VITALS: BP 109/69
[2016-07-16] MEDS: ONDANSETRON 16 MG in SODIUM CHLORIDE 0.9% 50 ML IVPB SCH (15:08)
[2016-07-16] MEDS: DEXAMETHASONE 4 MG TABLET PO SCH (15:09)
[2016-07-16] MEDS: SODIUM CHLORIDE 0.9% IV SCH (16:04)
[2016-07-16] MEDS: MESNA IVPB SCH (16:04)
[2016-07-16] MEDS: SODIUM CHLORIDE 0.9% IVPB SCH (16:04)
[2016-07-16] MEDS: CYCLOPHOSPHAMIDE IV SCH (16:04)
[2016-07-16] MEDS: IMATINIB 100 MG TABLET PO SCH (17:33)
[2016-07-16 19:57] VITALS: BP 100/75
[2016-07-16] MEDS: ALLOPURINOL 300 MG TABLET PO SCH (20:56)
[2016-07-17] MEDS: NS + 20MEQ KCL 1,000 ML IV SCH ×3 (01:28→21:50)
[2016-07-17] MEDS: ZOLPIDEM 5MG TABLET PO PRN (01:28)
[2016-07-17 03:06] LABS: HEMOGLOBIN 9.4 g/dL (13.7-18.0)
[2016-07-17 03:15] LABS: ASPARTATE AMINO TRANSFERASE 18 U/L (15-37); BLOOD UREA NITROGEN 10 mg/dL (7-18)
[2016-07-17 03:29] LABS: DIFF TOTAL CELLS COUNTED 100 CELL DIFF
[2016-07-17 03:31] VITALS: BP 128/67
[2016-07-17 03:31] LABS: ANISOCYTOSIS 1+; HYPOCHROMIA 1+; POIKILOCYTOSIS 1+; POLYCHROMASIA 1+; VERIFY COUNTS? YES
[2016-07-17] MEDS: CYCLOPHOSPHAMIDE IV SCH ×2 (03:52→15:49)
[2016-07-17] MEDS: SODIUM CHLORIDE 0.9% IV SCH ×2 (03:52→15:49)
[2016-07-17 07:49] VITALS: BP 119/72
[2016-07-17] MEDS: ONDANSETRON 16 MG in SODIUM CHLORIDE 0.9% 50 ML IVPB SCH (09:13)
[2016-07-17] MEDS: DEXAMETHASONE 4 MG TABLET PO SCH (09:16)
[2016-07-17] MEDS: GABAPENTIN 100 MG CAPSULE PO SCH ×2 (09:16→21:19)
[2016-07-17] MEDS ORDERED: LIDOCAINE 1%, 20ML ONE (11:01)
[2016-07-17] MEDS ORDERED: SODIUM BICARBONATE 4.2%, 5ML ONE (11:01)
[2016-07-17] MEDS ORDERED: METHOTREXATE IT ONE (13:00)
[2016-07-17] MEDS ORDERED: SODIUM CHLORIDE 0.9% IT ONE (13:00)
[2016-07-17 14:59] VITALS: BP 118/57
[2016-07-17] MEDS: ENOXAPARIN 80 MG/0.8 ML SQ SCH (15:00)
[2016-07-17] MEDS: SODIUM CHLORIDE 0.9% IVPB SCH (15:24)
[2016-07-17] MEDS: MESNA IVPB SCH (15:24)
[2016-07-17] MEDS: IMATINIB 100 MG TABLET PO SCH (16:51)
[2016-07-17 19:55] VITALS: BP 111/73
[2016-07-17] MEDS: ALLOPURINOL 300 MG TABLET PO SCH (21:19)
[2016-07-17] MEDS: OXYcodone IR 5MG TABLET PO PRN (21:19)
[2016-07-18] MEDS: CALCIUM CARBONATE 500 MG TAB.CHEW PO PRN ×2 (01:34→21:06)
[2016-07-18] MEDS: CYCLOPHOSPHAMIDE IV SCH ×2 (03:48→16:32)
[2016-07-18] MEDS: SODIUM CHLORIDE 0.9% IV SCH ×2 (03:48→16:32)
[2016-07-18] MEDS: ENOXAPARIN 80 MG/0.8 ML SQ SCH ×2 (04:10→14:51)
[2016-07-18 04:37] LABS: HEMOGLOBIN 8.9 g/dL (13.7-18.0)
[2016-07-18] MEDS: ONDANSETRON 2MG/ML, 2ML IVP PRN (04:38)
[2016-07-18 04:41] LABS: ASPARTATE AMINO TRANSFERASE 16 U/L (15-37); BLOOD UREA NITROGEN 14 mg/dL (7-18)
[2016-07-18 04:52] LABS: DIFF TOTAL CELLS COUNTED 100 CELL DIFF
[2016-07-18 04:53] LABS: ANISOCYTOSIS 1+
[2016-07-18 04:54] LABS: HYPOCHROMIA 1+; POIKILOCYTOSIS 1+; POLYCHROMASIA 1+; VERIFY COUNTS? YES
[2016-07-18 05:30] VITALS: BP 94/58
[2016-07-18] MEDS: NS + 20MEQ KCL 1,000 ML IV SCH ×3 (07:06→23:22)
[2016-07-18 07:37] VITALS: BP 100/61
[2016-07-18] MEDS: DEXAMETHASONE 4 MG TABLET PO SCH (08:39)
[2016-07-18] MEDS: GABAPENTIN 100 MG CAPSULE PO SCH ×2 (08:39→20:47)
[2016-07-18] MEDS: ONDANSETRON 16 MG in SODIUM CHLORIDE 0.9% 50 ML IVPB SCH (11:00)
[2016-07-18 13:00] VITALS: BP 110/62
[2016-07-18] MEDS ORDERED: MESNA IVPB SCH (15:30)
[2016-07-18] MEDS ORDERED: SODIUM CHLORIDE 0.9% IVPB SCH (15:30)
[2016-07-18] MEDS: IMATINIB 100 MG TABLET PO SCH (18:06)
[2016-07-18 20:05] VITALS: BP 116/68
[2016-07-18] MEDS: ALLOPURINOL 300 MG TABLET PO SCH (20:47)
[2016-07-18] MEDS: ZOLPIDEM 5MG TABLET PO PRN (23:23)
[2016-07-19] MEDS: CYCLOPHOSPHAMIDE IV SCH (03:57)
[2016-07-19] MEDS: SODIUM CHLORIDE 0.9% IV SCH (03:57)
[2016-07-19 04:12] VITALS: BP 138/70
[2016-07-19] MEDS: ENOXAPARIN 80 MG/0.8 ML SQ SCH ×2 (04:12→15:15)
[2016-07-19 04:36] LABS: HEMOGLOBIN 8.9 g/dL (13.7-18.0)
[2016-07-19 04:41] LABS: ASPARTATE AMINO TRANSFERASE 17 U/L (15-37); BLOOD UREA NITROGEN 13 mg/dL (7-18)
[2016-07-19 04:55] LABS: DIFF TOTAL CELLS COUNTED 100 CELL DIFF
[2016-07-19 04:57] LABS: ANISOCYTOSIS 1+; HYPOCHROMIA 1+; OVALOCYTES 1+; POIKILOCYTOSIS 1+; POLYCHROMASIA 1+
[2016-07-19 05:00] LABS: VERIFY COUNTS? YES
[2016-07-19 07:20] VITALS: BP 121/69
[2016-07-19] MEDS: NS + 20MEQ KCL 1,000 ML IV SCH ×2 (07:49→20:20)
[2016-07-19] MEDS: GABAPENTIN 100 MG CAPSULE PO SCH ×2 (07:49→20:20)
[2016-07-19] MEDS: METOCLOPRAMIDE 10MG TABLET PO PRN (09:44)
[2016-07-19] MEDS: ONDANSETRON 16 MG in SODIUM CHLORIDE 0.9% 50 ML IVPB SCH (09:44)
[2016-07-19] MEDS: DIPHENHYDRAMINE 50 MG/ML, 1ML IVPush PRN (09:44)
[2016-07-19] MEDS: DEXAMETHASONE 4 MG TABLET PO SCH (09:45)
[2016-07-19 14:15] VITALS: BP 102/64
[2016-07-19] MEDS ORDERED: SODIUM CHLORIDE 0.9% IV ONE ×2 (16:00→16:30)
[2016-07-19] MEDS ORDERED: VINCRISTINE IV ONE (16:00)
[2016-07-19] MEDS ORDERED: DOXORUBICIN IV ONE (16:30)
[2016-07-19] MEDS: IMATINIB 100 MG TABLET PO SCH (17:48)
[2016-07-19 19:45] VITALS: BP 118/81
[2016-07-19] MEDS: CALCIUM CARBONATE 500 MG TAB.CHEW PO PRN (19:47)
[2016-07-19] MEDS: ALLOPURINOL 300 MG TABLET PO SCH (20:20)
[2016-07-19] MEDS: ZOLPIDEM 5MG TABLET PO PRN (22:28)
[2016-07-20 02:00] VITALS: BP 118/81
[2016-07-20] MEDS: ENOXAPARIN 80 MG/0.8 ML SQ SCH ×2 (03:00→14:53)
[2016-07-20 03:47] LABS: HEMOGLOBIN 8.7 g/dL (13.7-18.0)
[2016-07-20 03:49] LABS: BLOOD UREA NITROGEN 14 mg/dL (7-18)
[2016-07-20 04:02] LABS: DIFF TOTAL CELLS COUNTED 100 CELL DIFF
[2016-07-20 04:03] LABS: ANISOCYTOSIS 1+; VERIFY COUNTS? YES
[2016-07-20 04:04] LABS: HYPOCHROMIA 1+; POIKILOCYTOSIS 1+
[2016-07-20] MEDS: NS + 20MEQ KCL 1,000 ML IV SCH ×3 (04:55→22:43)
[2016-07-20 07:20] VITALS: BP 115/67
[2016-07-20] MEDS: ONDANSETRON 2MG/ML, 2ML IVP PRN ×2 (07:51→18:06)
[2016-07-20] MEDS: OXYcodone IR 5MG TABLET PO PRN ×2 (07:51→14:16)
[2016-07-20] MEDS: GABAPENTIN 100 MG CAPSULE PO SCH ×2 (09:46→21:35)
[2016-07-20 12:54] VITALS: BP 105/63
[2016-07-20] MEDS: IMATINIB 100 MG TABLET PO SCH (17:41)
[2016-07-20 19:12] VITALS: BP 134/82
[2016-07-20] MEDS: ALLOPURINOL 300 MG TABLET PO SCH (21:35)
[2016-07-20] MEDS: ZOLPIDEM 5MG TABLET PO PRN ×2 (21:35→22:36)
[2016-07-21 03:28] VITALS: BP 105/66
[2016-07-21] MEDS: ENOXAPARIN 80 MG/0.8 ML SQ SCH ×2 (04:16→15:30)
[2016-07-21 04:58] LABS: HEMOGLOBIN 9.1 g/dL (13.7-18.0)
[2016-07-21 05:02] LABS: BLOOD UREA NITROGEN 14 mg/dL (7-18)
[2016-07-21] MEDS: NS + 20MEQ KCL 1,000 ML IV SCH ×2 (06:33→15:30)
[2016-07-21 07:15] VITALS: BP 154/71
[2016-07-21] MEDS: ONDANSETRON 2MG/ML, 2ML IVP PRN ×2 (07:52→14:08)
[2016-07-21] MEDS: GABAPENTIN 100 MG CAPSULE PO SCH ×2 (08:41→22:18)
[2016-07-21] MEDS: OXYcodone IR 5MG TABLET PO PRN ×3 (12:11→22:18)
[2016-07-21 13:00] VITALS: BP 126/75
[2016-07-21] MEDS: IMATINIB 100 MG TABLET PO SCH (17:56)
[2016-07-21] MEDS: PROMETHAZINE 25 MG/ML, 1ML IM PRN (19:37)
[2016-07-21 19:54] VITALS: BP 154/72
[2016-07-21] MEDS: ALLOPURINOL 300 MG TABLET PO SCH (22:18)
[2016-07-21] MEDS: ZOLPIDEM 5MG TABLET PO PRN (22:19)
[2016-07-22] MEDS: NS + 20MEQ KCL 1,000 ML IV SCH ×3 (01:21→17:39)
[2016-07-22] MEDS: ENOXAPARIN 80 MG/0.8 ML SQ SCH ×2 (03:00→14:53)
[2016-07-22 03:24] VITALS: BP 150/76
[2016-07-22 03:33] LABS: HEMOGLOBIN 8.7 g/dL (13.7-18.0)
[2016-07-22 03:34] LABS: BLOOD UREA NITROGEN 14 mg/dL (7-18)
[2016-07-22 03:51] LABS: ANISOCYTOSIS 2+; HYPOCHROMIA 1+; OVALOCYTES 1+; POIKILOCYTOSIS 1+
[2016-07-22 08:55] VITALS: BP 153/85
[2016-07-22] MEDS: PROMETHAZINE 25 MG/ML, 1ML IM PRN (08:57)
[2016-07-22] MEDS: GABAPENTIN 100 MG CAPSULE PO SCH ×2 (08:58→21:02)
[2016-07-22] MEDS: OXYcodone IR 5MG TABLET PO PRN ×4 (09:01→21:02)
[2016-07-22 14:58] VITALS: BP 139/75
[2016-07-22] MEDS: ONDANSETRON 2MG/ML, 2ML IVP PRN (17:42)
[2016-07-22] MEDS: IMATINIB 100 MG TABLET PO SCH (17:45)
[2016-07-22 20:40] VITALS: BP 120/72
[2016-07-22] MEDS: ALLOPURINOL 300 MG TABLET PO SCH (21:02)
[2016-07-22] MEDS: ZOLPIDEM 5MG TABLET PO PRN (21:02)
[2016-07-23] MEDS: NS + 20MEQ KCL 1,000 ML IV SCH ×2 (02:18→15:58)
[2016-07-23 02:21] VITALS: BP 117/75
[2016-07-23] MEDS: OXYcodone IR 5MG TABLET PO PRN ×5 (02:29→22:42)
[2016-07-23 02:50] LABS: HEMOGLOBIN 8.5 g/dL (13.7-18.0)
[2016-07-23 03:00] LABS: BLOOD UREA NITROGEN 14 mg/dL (7-18)
[2016-07-23] MEDS: ENOXAPARIN 80 MG/0.8 ML SQ SCH ×2 (03:00→15:00)
[2016-07-23 03:04] LABS: DIFF TOTAL CELLS COUNTED 100 CELL DIFF
[2016-07-23 03:08] LABS: VERIFY COUNTS? YES
[2016-07-23 03:09] LABS: ANISOCYTOSIS 1+; HYPOCHROMIA 1+; MICROCYTOSIS 1+
[2016-07-23 07:41] VITALS: BP 112/72
[2016-07-23] MEDS: GABAPENTIN 100 MG CAPSULE PO SCH ×2 (07:41→22:42)
[2016-07-23] MEDS: ONDANSETRON 2MG/ML, 2ML IVP PRN ×2 (08:30→16:36)
[2016-07-23] MEDS ORDERED: SODIUM CHLORIDE 0.9% IT ONE (09:00)
[2016-07-23] MEDS ORDERED: CYTARABINE IT ONE (09:00)
[2016-07-23] MEDS: PROCHLORPERAZINE 10MG TABLET PO SCH ×3 (09:00→22:42)
[2016-07-23 12:50] VITALS: BP 113/74
[2016-07-23 14:23] VITALS: BP 107/66
[2016-07-23] MEDS ORDERED: CYTARABINE IV ONE (16:00)
[2016-07-23] MEDS ORDERED: SODIUM CHLORIDE 0.9% IV ONE (16:00)
[2016-07-23] MEDS: IMATINIB 100 MG TABLET PO SCH (18:29)
[2016-07-23 20:00] VITALS: BP 113/73
[2016-07-23] MEDS: ZOLPIDEM 5MG TABLET PO PRN (22:42)
[2016-07-23] MEDS: ALLOPURINOL 300 MG TABLET PO SCH (22:42)
[2016-07-24] MEDS: NS + 20MEQ KCL 1,000 ML IV SCH ×3 (01:15→19:58)
[2016-07-24] MEDS: ENOXAPARIN 80 MG/0.8 ML SQ SCH ×2 (03:29→16:20)
[2016-07-24] MEDS: PROCHLORPERAZINE 10MG TABLET PO SCH ×4 (03:29→22:01)
[2016-07-24 03:31] VITALS: BP 118/71
[2016-07-24 03:49] LABS: BLOOD UREA NITROGEN 13 mg/dL (7-18)
[2016-07-24 05:54] LABS: DIFF TOTAL CELLS COUNTED 100 CELL DIFF
[2016-07-24 05:58] LABS: ANISOCYTOSIS 1+; HYPOCHROMIA 1+; VERIFY COUNTS? YES
[2016-07-24 07:29] VITALS: BP 125/65
[2016-07-24] MEDS: GABAPENTIN 100 MG CAPSULE PO SCH ×2 (08:21→19:58)
[2016-07-24] MEDS: OXYcodone IR 5MG TABLET PO PRN ×4 (08:23→20:24)
[2016-07-24 13:55] VITALS: BP 122/70
[2016-07-24] MEDS: IMATINIB 100 MG TABLET PO SCH (17:36)
[2016-07-24] MEDS: ONDANSETRON 2MG/ML, 2ML IVP PRN (18:52)
[2016-07-24] MEDS: ALLOPURINOL 300 MG TABLET PO SCH (19:58)
[2016-07-24 20:00] VITALS: BP 117/77
[2016-07-24] MEDS: ZOLPIDEM 5MG TABLET PO PRN (22:01)
[2016-07-25] MEDS: PROCHLORPERAZINE 10MG TABLET PO SCH ×4 (04:12→22:27)
[2016-07-25] MEDS: NS + 20MEQ KCL 1,000 ML IV SCH ×2 (04:12→18:27)
[2016-07-25] MEDS: ENOXAPARIN 80 MG/0.8 ML SQ SCH ×2 (04:31→16:16)
[2016-07-25] MEDS: ONDANSETRON 2MG/ML, 2ML IVP PRN ×3 (04:36→20:15)
[2016-07-25 04:54] LABS: BLOOD UREA NITROGEN 9 mg/dL (7-18)
[2016-07-25 04:56] LABS: HEMOGLOBIN 8.5 g/dL (13.7-18.0)
[2016-07-25 05:10] VITALS: BP 112/71
[2016-07-25] MEDS: OXYcodone IR 5MG TABLET PO PRN ×3 (05:14→16:15)
[2016-07-25 05:38] LABS: DIFF TOTAL CELLS COUNTED 100 CELL DIFF
[2016-07-25 05:46] LABS: ANISOCYTOSIS 1+; VERIFY COUNTS? YES
[2016-07-25 05:47] LABS: HYPOCHROMIA 1+
[2016-07-25 05:48] LABS: POIKILOCYTOSIS 1+
[2016-07-25] MEDS: GABAPENTIN 100 MG CAPSULE PO SCH ×2 (07:37→22:27)
[2016-07-25 07:41] VITALS: BP 101/72
[2016-07-25 14:04] VITALS: BP 123/72
[2016-07-25] MEDS: IMATINIB 100 MG TABLET PO SCH (18:27)
[2016-07-25] MEDS: CALCIUM CARBONATE 500 MG TAB.CHEW PO PRN (18:31)
[2016-07-25 20:00] VITALS: BP 125/81
[2016-07-25] MEDS: DOCUSATE 100 MG CAPSULE PO PRN (22:26)
[2016-07-25] MEDS: ALLOPURINOL 300 MG TABLET PO SCH (22:27)
[2016-07-26] MEDS: ENOXAPARIN 80 MG/0.8 ML SQ SCH ×2 (02:58→15:59)
[2016-07-26] MEDS: NS + 20MEQ KCL 1,000 ML IV SCH ×4 (03:09→20:55)
[2016-07-26 03:14] VITALS: BP 111/70
[2016-07-26 03:26] LABS: HEMOGLOBIN 8.3 g/dL (13.7-18.0)
[2016-07-26 03:29] LABS: ASPARTATE AMINO TRANSFERASE 25 U/L (15-37); BLOOD UREA NITROGEN 8 mg/dL (7-18)
[2016-07-26 04:55] LABS: DIFF TOTAL CELLS COUNTED 100 CELL DIFF
[2016-07-26 04:57] LABS: ANISOCYTOSIS 1+; POIKILOCYTOSIS 1+
[2016-07-26 05:02] LABS: VERIFY COUNTS? YES
[2016-07-26] MEDS: PROCHLORPERAZINE 10MG TABLET PO SCH ×4 (05:58→20:56)
[2016-07-26] MEDS ORDERED: FAMOTIDINE 20 MG/2 ML IVPush ONE (08:30)
[2016-07-26] MEDS ORDERED: ACETAMINOPHEN 325 MG TABLET PO ONE (08:30)
[2016-07-26] MEDS ORDERED: DIPHENHYDRAMINE 50 MG/ML, 1ML IVPush ONE (08:30)
[2016-07-26] MEDS: ONDANSETRON 2MG/ML, 2ML IVP PRN (08:50)
[2016-07-26] MEDS: GABAPENTIN 100 MG CAPSULE PO SCH ×2 (08:59→20:55)
[2016-07-26] MEDS: DEXAMETHASONE 4 MG TABLET PO SCH (08:59)
[2016-07-26] MEDS ORDERED: RITUXIMAB 750 MG in SODIUM CHLORIDE 0.9% 250 ML IV ONE (09:00)
[2016-07-26 11:42] VITALS: BP 119/76
[2016-07-26 14:16] VITALS: BP_SYST 115; BP_SYST 128; BP_DIAS 75; BP_DIAS 78
[2016-07-26] MEDS ORDERED: VINCRISTINE IV ONE (16:00)
[2016-07-26] MEDS ORDERED: SODIUM CHLORIDE 0.9% IV ONE (16:00)
[2016-07-26] MEDS: IMATINIB 100 MG TABLET PO SCH (16:59)
[2016-07-26 20:41] VITALS: BP 137/80
[2016-07-26] MEDS: ALLOPURINOL 300 MG TABLET PO SCH (20:55)
[2016-07-26] MEDS: CALCIUM CARBONATE 500 MG TAB.CHEW PO PRN (20:55)
[2016-07-27] VITALS (10 sets, daily range): BP systolic 97–153; BP diastolic 64–110
[2016-07-27] MEDS: ZOLPIDEM 5MG TABLET PO PRN ×4 (00:48→23:38)
[2016-07-27] MEDS: PROCHLORPERAZINE 10MG TABLET PO SCH ×4 (04:00→22:00)
[2016-07-27] MEDS: ENOXAPARIN 80 MG/0.8 ML SQ SCH ×2 (04:37→16:39)
[2016-07-27 05:25] LABS: BLOOD UREA NITROGEN 12 mg/dL (7-18)
[2016-07-27 05:31] LABS: HEMOGLOBIN 7.3 g/dL (13.7-18.0)
[2016-07-27 06:06] LABS: DIFF TOTAL CELLS COUNTED 100 CELL DIFF
[2016-07-27 06:10] LABS: ANISOCYTOSIS 1+; POIKILOCYTOSIS 1+
[2016-07-27 06:11] LABS: VERIFY COUNTS? YES
[2016-07-27] MEDS: NS + 20MEQ KCL 1,000 ML IV SCH ×2 (06:11→13:43)
[2016-07-27] MEDS ORDERED: DIPHENHYDRAMINE 50 MG/ML, 1ML IV ONE (08:00)
[2016-07-27] MEDS ORDERED: DIPHENHYDRAMINE 25 MG CAPSULE PO ONE (08:30)
[2016-07-27] MEDS: ACETAMINOPHEN 325 MG TABLET PO PRN (09:41)
[2016-07-27] MEDS: DEXAMETHASONE 4 MG TABLET PO SCH (09:41)
[2016-07-27] MEDS: GABAPENTIN 100 MG CAPSULE PO SCH ×2 (09:41→19:58)
[2016-07-27] MEDS: POLYETHYLENE GLYCOL 17 GM PACKET PO PRN (11:54)
[2016-07-27] MEDS: TBO-FILGRASTIM 480 MCG/0.8 ML SQ SCH (13:43)
[2016-07-27] MEDS: IMATINIB 100 MG TABLET PO SCH (18:30)
[2016-07-27] MEDS: ALLOPURINOL 300 MG TABLET PO SCH (19:57)
[2016-07-27] MEDS: POSACONAZOLE 200 MG/5 ML ORAL SUSP PO SCH (19:58)
[2016-07-27] MEDS: LEVOFLOXACIN 750 MG TABLET PO SCH (19:58)
[2016-07-27] MEDS: DOCUSATE 100 MG CAPSULE PO PRN (20:08)
[2016-07-27] MEDS: CALCIUM CARBONATE 500 MG TAB.CHEW PO PRN (20:08)
[2016-07-28] MEDS: NS + 20MEQ KCL 1,000 ML IV SCH ×3 (00:53→15:46)
[2016-07-28] MEDS ORDERED: ONDANSETRON 2MG/ML, 2ML IVP PRN (01:00)
[2016-07-28 02:50] VITALS: BP 142/84
[2016-07-28] MEDS: PROCHLORPERAZINE 10MG TABLET PO SCH ×5 (04:00→22:00)
[2016-07-28] MEDS: ENOXAPARIN 80 MG/0.8 ML SQ SCH ×2 (04:44→15:00)
[2016-07-28 05:13] LABS: BLOOD UREA NITROGEN 13 mg/dL (7-18)
[2016-07-28 05:46] LABS: HEMOGLOBIN 9.4 g/dL (13.7-18.0)
[2016-07-28 06:41] LABS: DIFF TOTAL CELLS COUNTED 50 CELL DIFFERENTIAL; VERIFY COUNTS? YES
[2016-07-28 06:44] LABS: ANISOCYTOSIS 1+
[2016-07-28 06:45] LABS: HYPOCHROMIA 1+; POIKILOCYTOSIS 1+
[2016-07-28 09:03] VITALS: BP 122/77
[2016-07-28] MEDS: GABAPENTIN 100 MG CAPSULE PO SCH ×2 (09:07→19:41)
[2016-07-28] MEDS: POSACONAZOLE 200 MG/5 ML ORAL SUSP PO SCH ×3 (09:07→19:41)
[2016-07-28] MEDS: DEXAMETHASONE 4 MG TABLET PO SCH (09:08)
[2016-07-28] MEDS: TBO-FILGRASTIM 480 MCG/0.8 ML SQ SCH (11:27)
[2016-07-28 12:58] VITALS: BP 132/77
[2016-07-28] MEDS: IMATINIB 100 MG TABLET PO SCH (17:23)
[2016-07-28] MEDS: LEVOFLOXACIN 750 MG TABLET PO SCH (19:41)
[2016-07-28] MEDS: ALLOPURINOL 300 MG TABLET PO SCH (19:42)
[2016-07-28 20:54] VITALS: BP 120/73
[2016-07-28] MEDS: ZOLPIDEM 5MG TABLET PO PRN (21:54)
[2016-07-29] MEDS: ZOLPIDEM 5MG TABLET PO PRN ×2 (00:54→21:33)
[2016-07-29 03:00] VITALS: BP 110/69
[2016-07-29] MEDS: PROCHLORPERAZINE 10MG TABLET PO SCH ×4 (04:00→22:00)
[2016-07-29] MEDS: ENOXAPARIN 80 MG/0.8 ML SQ SCH ×2 (04:07→15:30)
[2016-07-29] MEDS: NS + 20MEQ KCL 1,000 ML IV SCH ×3 (04:08→20:09)
[2016-07-29 04:25] VITALS: BP 110/69
[2016-07-29 06:08] LABS: BLOOD UREA NITROGEN 14 mg/dL (7-18)
[2016-07-29 06:41] LABS: HEMOGLOBIN 9.4 g/dL (13.7-18.0)
[2016-07-29 07:41] VITALS: BP 108/67
[2016-07-29 08:48] LABS: DIFF TOTAL CELLS COUNTED 100 CELL DIFF
[2016-07-29 08:51] LABS: ANISOCYTOSIS 1+; HYPOCHROMIA 1+; POIKILOCYTOSIS 1+; VERIFY COUNTS? YES
[2016-07-29] MEDS: POSACONAZOLE 200 MG/5 ML ORAL SUSP PO SCH ×3 (09:01→20:09)
[2016-07-29] MEDS: DEXAMETHASONE 4 MG TABLET PO SCH (09:01)
[2016-07-29] MEDS: GABAPENTIN 100 MG CAPSULE PO SCH ×2 (09:01→20:09)
[2016-07-29] MEDS: TBO-FILGRASTIM 480 MCG/0.8 ML SQ SCH (12:55)
[2016-07-29 13:50] VITALS: BP 108/68
[2016-07-29] MEDS: IMATINIB 100 MG TABLET PO SCH (18:54)
[2016-07-29 19:57] VITALS: BP 114/60
[2016-07-29] MEDS: ALLOPURINOL 300 MG TABLET PO SCH (20:09)
[2016-07-29] MEDS: LEVOFLOXACIN 750 MG TABLET PO SCH (20:09)
[2016-07-30 02:45] VITALS: BP 94/60
[2016-07-30] MEDS: ENOXAPARIN 80 MG/0.8 ML SQ SCH ×2 (03:04→15:08)
[2016-07-30 03:13] LABS: HEMOGLOBIN 9.2 g/dL (13.7-18.0)
[2016-07-30 03:22] LABS: ASPARTATE AMINO TRANSFERASE 9 U/L (15-37); BLOOD UREA NITROGEN 13 mg/dL (7-18)
[2016-07-30 03:37] LABS: DIFF TOTAL CELLS COUNTED 100 CELL DIFF
[2016-07-30 03:46] LABS: ANISOCYTOSIS 1+; HYPOCHROMIA 1+; POIKILOCYTOSIS 1+; POLYCHROMASIA 1+; VERIFY COUNTS? YES
[2016-07-30] MEDS: PROCHLORPERAZINE 10MG TABLET PO SCH ×5 (03:56→21:38)
[2016-07-30 06:43] VITALS: BP 101/56
[2016-07-30] MEDS: POSACONAZOLE 200 MG/5 ML ORAL SUSP PO SCH ×3 (08:40→21:29)
[2016-07-30] MEDS: GABAPENTIN 100 MG CAPSULE PO SCH ×2 (08:41→21:28)
[2016-07-30] MEDS: TBO-FILGRASTIM 480 MCG/0.8 ML SQ SCH (12:26)
[2016-07-30 12:46] VITALS: BP 109/71
[2016-07-30] MEDS: NS + 20MEQ KCL 1,000 ML IV SCH ×2 (15:08→23:21)
[2016-07-30] MEDS: OXYcodone IR 5MG TABLET PO PRN ×2 (17:19→22:00)
[2016-07-30] MEDS: IMATINIB 100 MG TABLET PO SCH (18:25)
[2016-07-30] MEDS: LEVOFLOXACIN 750 MG TABLET PO SCH (19:59)
[2016-07-30 20:28] VITALS: BP 108/72
[2016-07-30] MEDS: ALLOPURINOL 300 MG TABLET PO SCH (21:28)
[2016-07-30] MEDS: ZOLPIDEM 5MG TABLET PO PRN (22:00)
[2016-07-31] MEDS: ZOLPIDEM 5MG TABLET PO PRN (00:25)
[2016-07-31 03:49] VITALS: BP 116/75
[2016-07-31] MEDS: PROCHLORPERAZINE 10MG TABLET PO SCH ×3 (04:00→15:19)
[2016-07-31] MEDS: ENOXAPARIN 80 MG/0.8 ML SQ SCH ×2 (04:23→15:24)
[2016-07-31] MEDS: OXYcodone IR 5MG TABLET PO PRN ×3 (04:29→15:34)
[2016-07-31 04:36] LABS: HEMOGLOBIN 9.4 g/dL (13.7-18.0)
[2016-07-31 04:38] LABS: BLOOD UREA NITROGEN 16 mg/dL (7-18)
[2016-07-31 05:42] LABS: DIFF TOTAL CELLS COUNTED 100 CELL DIFF
[2016-07-31 05:52] LABS: ANISOCYTOSIS 1+; VERIFY COUNTS? YES
[2016-07-31 05:53] LABS: POLYCHROMASIA 1+
[2016-07-31 07:17] VITALS: BP 99/59
[2016-07-31] MEDS: POSACONAZOLE 200 MG/5 ML ORAL SUSP PO SCH ×2 (08:32→15:24)
[2016-07-31] MEDS: GABAPENTIN 100 MG CAPSULE PO SCH (08:32)
[2016-07-31] MEDS: NS + 20MEQ KCL 1,000 ML IV SCH (08:32)
[2016-07-31] MEDS: TBO-FILGRASTIM 480 MCG/0.8 ML SQ SCH (09:48)
[2016-07-31 12:35] VITALS: BP 108/64
[2016-07-31] MEDS ORDERED: ALLO300T PO (15:57)
[2016-07-31] MEDS ORDERED: IMAT100T PO (15:57)
[2016-07-31] MEDS ORDERED: ENOX80SY4 SQ (15:57)
[2016-07-31] MEDS ORDERED: PROC10TA78 PO (15:57)
[2016-07-31] MEDS ORDERED: OXYC5TAB3 PO (15:57)
[2016-07-31] MEDS ORDERED: GABA100C8 PO (15:57)
[2016-07-31] MEDS: IMATINIB 100 MG TABLET PO SCH (18:05)
== END 2016-07-31 19:15 | disposition home or self-care (01) | DRG 834 ==
LOC: ED 09:43 → SUATTDRO 10:13 → EDIP 10:40 → 3NW 11:41 → CCU 06-19 19:56 → 4EST 06-22 18:59 → 4WST 06-22 20:36 → 3NW 06-24 19:35
PROVIDERS: ATTEND Internal Medicine
PROC: 07DR3ZX Extraction of Iliac Bone Marrow, Percutaneous Approach, Diagnostic (ICD-10-PCS; 2016-05-31)
PROC: 009U3ZX Drainage of Spinal Canal, Percutaneous Approach, Diagnostic (ICD-10-PCS; 2016-06-03)
PROC: B01B1ZZ Fluoroscopy of Spinal Cord using Low Osmolar Contrast (ICD-10-PCS; 2016-06-03)
PROC: 02HV33Z Insertion of Infusion Device into Superior Vena Cava, Percutaneous Approach (ICD-10-PCS; principal; 2016-06-04)
PROC: B5181ZA Fluoroscopy of Superior Vena Cava using Low Osmolar Contrast, Guidance (ICD-10-PCS; 2016-06-04)
PROC: 3E04305 Introduction of Other Antineoplastic into Central Vein, Percutaneous Approach (ICD-10-PCS; 2016-06-04)
PROC: B548ZZA Ultrasonography of Superior Vena Cava, Guidance (ICD-10-PCS; 2016-06-04)
PROC: 3E0R305 Introduction of Other Antineoplastic into Spinal Canal, Percutaneous Approach (ICD-10-PCS; 2016-06-05)
PROC: 009U3ZX Drainage of Spinal Canal, Percutaneous Approach, Diagnostic (ICD-10-PCS; 2016-06-05)
PROC: B01B1ZZ Fluoroscopy of Spinal Cord using Low Osmolar Contrast (ICD-10-PCS; 2016-06-05)
PROC: 3E0R305 Introduction of Other Antineoplastic into Spinal Canal, Percutaneous Approach (ICD-10-PCS; 2016-06-11)
PROC: 009U3ZX Drainage of Spinal Canal, Percutaneous Approach, Diagnostic (ICD-10-PCS; 2016-06-11)
PROC: B01B1ZZ Fluoroscopy of Spinal Cord using Low Osmolar Contrast (ICD-10-PCS; 2016-06-11)
PROC: 30233R1 Transfusion of Nonautologous Platelets into Peripheral Vein, Percutaneous Approach (ICD-10-PCS; 2016-06-11)
PROC: 07DR3ZX Extraction of Iliac Bone Marrow, Percutaneous Approach, Diagnostic (ICD-10-PCS; 2016-06-19)
PROC: 02HV33Z Insertion of Infusion Device into Superior Vena Cava, Percutaneous Approach (ICD-10-PCS; 2016-06-25)
PROC: B5181ZA Fluoroscopy of Superior Vena Cava using Low Osmolar Contrast, Guidance (ICD-10-PCS; 2016-06-25)
PROC: 3E04305 Introduction of Other Antineoplastic into Central Vein, Percutaneous Approach (ICD-10-PCS; 2016-06-25)
PROC: B548ZZA Ultrasonography of Superior Vena Cava, Guidance (ICD-10-PCS; 2016-06-25)
PROC: 3E0R305 Introduction of Other Antineoplastic into Spinal Canal, Percutaneous Approach (ICD-10-PCS; 2016-06-26)
PROC: 009U3ZX Drainage of Spinal Canal, Percutaneous Approach, Diagnostic (ICD-10-PCS; 2016-06-26)
PROC: B01B1ZZ Fluoroscopy of Spinal Cord using Low Osmolar Contrast (ICD-10-PCS; 2016-06-26)
PROC: 0T9B70Z Drainage of Bladder with Drainage Device, Via Natural or Artificial Opening (ICD-10-PCS; 2016-06-27)
PROC: 3E0R305 Introduction of Other Antineoplastic into Spinal Canal, Percutaneous Approach (ICD-10-PCS; 2016-07-02)
PROC: 009U3ZX Drainage of Spinal Canal, Percutaneous Approach, Diagnostic (ICD-10-PCS; 2016-07-02)
PROC: B01B1ZZ Fluoroscopy of Spinal Cord using Low Osmolar Contrast (ICD-10-PCS; 2016-07-02)
PROC: 30233N1 Transfusion of Nonautologous Red Blood Cells into Peripheral Vein, Percutaneous Approach (ICD-10-PCS; 2016-07-02)
PROC: 07DR3ZX Extraction of Iliac Bone Marrow, Percutaneous Approach, Diagnostic (ICD-10-PCS; 2016-07-11)
PROC: 009U3ZX Drainage of Spinal Canal, Percutaneous Approach, Diagnostic (ICD-10-PCS; 2016-07-17)
PROC: B01B1ZZ Fluoroscopy of Spinal Cord using Low Osmolar Contrast (ICD-10-PCS; 2016-07-17)
PROC: 3E0R305 Introduction of Other Antineoplastic into Spinal Canal, Percutaneous Approach (ICD-10-PCS; 2016-07-17)
PROC: 009U3ZX Drainage of Spinal Canal, Percutaneous Approach, Diagnostic (ICD-10-PCS; 2016-07-23)
PROC: B01B1ZZ Fluoroscopy of Spinal Cord using Low Osmolar Contrast (ICD-10-PCS; 2016-07-23)
PROC: 3E0R305 Introduction of Other Antineoplastic into Spinal Canal, Percutaneous Approach (ICD-10-PCS; 2016-07-23)
DX: C91.00 Acute lymphoblastic leukemia not having achieved remission (principal); G08 Intracranial and intraspinal phlebitis and thrombophlebitis; I26.99 Other pulmonary embolism without acute cor pulmonale; E43 Unspecified severe protein-calorie malnutrition; D61.810 Antineoplastic chemotherapy induced pancytopenia; I61.9 Nontraumatic intracerebral hemorrhage, unspecified; J18.9 Pneumonia, unspecified organism; E87.1 Hypo-osmolality and hyponatremia; I82.622 Acute embolism and thrombosis of deep veins of left upper extremity; I82.401 Acute embolism and thrombosis of unspecified deep veins of right lower extremity; D68.69 Other thrombophilia; I82.611 Acute embolism and thrombosis of superficial veins of right upper extremity; T45.1X5A Adverse effect of antineoplastic and immunosuppressive drugs, initial encounter; I49.5 Sick sinus syndrome; D70.9 Neutropenia, unspecified; R50.81 Fever presenting with conditions classified elsewhere; D75.89 Other specified diseases of blood and blood-forming organs; D63.0 Anemia in neoplastic disease; K76.0 Fatty (change of) liver, not elsewhere classified; F17.210 Nicotine dependence, cigarettes, uncomplicated; Q99.8 Other specified chromosome abnormalities; Z79.01 Long term (current) use of anticoagulants; Z83.3 Family history of diabetes mellitus; Z82.49 Family history of ischemic heart disease and other diseases of the circulatory system; Z68.27 Body mass index [BMI] 27.0-27.9, adult
CPT/HCPCS: 36415; 36569; 62270; 70450; 70553; 71010; 71020; 72156; 74177; 76700; 76870; 76937; 77001; 77012; 80048; 80053; 80074; 80076; 80202; 80375; 81001; 81003; 81206; 81207; 82150; 82247; 82248; 82542; 82565; 82945; 83605; 83690; 83735; 84157; 84450; 84460; 84550; 85025; 85097; 85520; 85610; 85651; 85730; 86022; 86140; 86703; 86850; 86900; 86923; 87040; 87070; 87081; 87086; 87205; 87899; 88108; 88237; 88264; 88280; 88305; 88311; 88313; 88341; 88342; 89051; 93005; 93306; 96365; 99156; 99157; A9585; G0364; J0640; J0696; J1100; J1450; J1453; J1644; J1650; J2175; J2185; J2248; J2250; J2405; J2543; J2550; J2997; J3010; J3370; J3480; J3490; J9000; J9070; J9100; J9209; J9250; J9310; J9370; Q0164; Q9967; C1751; G0435; G0461; G0480; J0883; J1200; J1447; J2310; J2930; J3475; J7030; J7040; J7050; P9037; P9040; Q0163; S0028

== ENCOUNTER 2016-08-06 14:08 | Inpatient (IN) | payer MEDICAID ==
[~2016-08-06] VITALS: Ht 175.3 cm; Wt 78.8 kg
[~2016-08-06 14:08] MED LIST: ALLO300T PO; ENOX80SY4 SQ; GABA100C8 PO; HYDR-3240 PO; IMAT100T PO; OXYC5TAB3 PO; PROC10TA78 PO
[2016-08-06 15:13] VITALS: BP 127/70
[2016-08-06 15:39] LABS: ASPARTATE AMINO TRANSFERASE 31 U/L (15-37); BLOOD UREA NITROGEN 12 mg/dL (7-18)
[2016-08-06] MEDS ORDERED: FAMOTIDINE 20 MG/2 ML IVPush ONE (16:30)
[2016-08-06] MEDS ORDERED: ONDANSETRON 16 MG, DEXAMETHASONE 12 MG in SODIUM CHLORIDE 0.9% 50 ML IVPB SCH (16:30)
[2016-08-06] MEDS ORDERED: ACETAMINOPHEN 325 MG TABLET PO ONE (16:30)
[2016-08-06] MEDS ORDERED: DIPHENHYDRAMINE 50 MG/ML, 1ML IVPush ONE (16:30)
[2016-08-06] MEDS ORDERED: RITUXIMAB 750 MG in SODIUM CHLORIDE 0.9% 250 ML IV ONE (17:00)
[2016-08-06] MEDS: SODIUM ACETATE 75 MEQ in SODIUM CHLORIDE 0.45% 1,000 ML IV SCH (17:04)
[2016-08-06] MEDS ORDERED: PROCHLORPERAZINE 5 MG TABLET PO PRN (19:00)
[2016-08-06 19:45] VITALS: BP 106/69
[2016-08-06] MEDS: LEVOFLOXACIN 500 MG TABLET PO SCH (21:33)
[2016-08-06] MEDS: GABAPENTIN 100 MG CAPSULE PO SCH (21:35)
[2016-08-06] MEDS: ALLOPURINOL 300 MG TABLET PO SCH (21:35)
[2016-08-06] MEDS: methylPREDNISolone SOD SUCC 125 MG/2 ML IVPush SCH (21:35)
[2016-08-06] MEDS: ACYCLOVIR 200 MG CAPSULE PO SCH (21:35)
[2016-08-06] MEDS: IMATINIB 100 MG TABLET PO SCH (21:39)
[2016-08-06] MEDS ORDERED: SODIUM CHLORIDE 0.9% IV ONE (22:00)
[2016-08-06] MEDS ORDERED: METHOTREXATE IV ONE (22:00)
[2016-08-07] MEDS ORDERED: METHOTREXATE IV ONE
[2016-08-07] MEDS ORDERED: SODIUM CHLORIDE 0.9% IV ONE
[2016-08-07] MEDS: ENOXAPARIN 80 MG/0.8 ML SQ SCH ×3 (00:16→22:47)
[2016-08-07] MEDS: SODIUM ACETATE 75 MEQ in SODIUM CHLORIDE 0.45% 1,000 ML IV SCH ×3 (01:49→20:52)
[2016-08-07 05:23] VITALS: BP 114/65
[2016-08-07 05:42] LABS: BLOOD UREA NITROGEN 10 mg/dL (7-18)
[2016-08-07 05:46] LABS: ASPARTATE AMINO TRANSFERASE 29 U/L (15-37)
[2016-08-07 06:29] LABS: DIFF TOTAL CELLS COUNTED 100 CELL DIFF
[2016-08-07 06:31] LABS: VERIFY COUNTS? YES
[2016-08-07 06:32] LABS: ANISOCYTOSIS 1+; POLYCHROMASIA 1+
[2016-08-07 07:45] VITALS: BP 118/76
[2016-08-07] MEDS: GABAPENTIN 100 MG CAPSULE PO SCH ×2 (09:12→20:44)
[2016-08-07] MEDS: ACYCLOVIR 200 MG CAPSULE PO SCH ×2 (09:14→20:44)
[2016-08-07] MEDS: FLUCONAZOLE 100 MG TABLET PO SCH (09:14)
[2016-08-07] MEDS: PANTOPRAZOLE 40 MG IV IVPush SCH (09:14)
[2016-08-07] MEDS: methylPREDNISolone SOD SUCC 125 MG/2 ML IVPush SCH ×2 (09:15→20:54)
[2016-08-07] MEDS: DEXAMETHASONE OPHTH 0.1%, 5ML EACHEYE SCH ×4 (10:49→22:48)
[2016-08-07] MEDS: SODIUM CHLORIDE 0.9% IV SCH ×2 (11:03→22:50)
[2016-08-07] MEDS: CYTARABINE IV SCH ×2 (11:03→22:50)
[2016-08-07] MEDS: ONDANSETRON 16 MG, DEXAMETHASONE 12 MG in SODIUM CHLORIDE 0.9% 50 ML IVPB SCH (12:11)
[2016-08-07 13:23] VITALS: BP 121/71
[2016-08-07] MEDS ORDERED: METHOTREXATE/PF 2ML 12 MG in SODIUM CHLORIDE 0.9% 4.52 ML IT ONE (14:00)
[2016-08-07] MEDS: IMATINIB 100 MG TABLET PO SCH (17:54)
[2016-08-07 19:26] VITALS: BP 116/65
[2016-08-07] MEDS: LEVOFLOXACIN 500 MG TABLET PO SCH (20:43)
[2016-08-07] MEDS: ALLOPURINOL 300 MG TABLET PO SCH (20:44)
[2016-08-07] MEDS: POTASSIUM CHLORIDE 20 MEQ PACKET PO SCH (20:45)
[2016-08-08 03:26] VITALS: BP 109/53
[2016-08-08 03:45] LABS: BLOOD UREA NITROGEN 12 mg/dL (7-18)
[2016-08-08 03:48] LABS: ASPARTATE AMINO TRANSFERASE 60 U/L (15-37)
[2016-08-08] MEDS: DEXAMETHASONE OPHTH 0.1%, 5ML EACHEYE SCH ×4 (05:48→21:52)
[2016-08-08] MEDS: SODIUM ACETATE 75 MEQ in SODIUM CHLORIDE 0.45% 1,000 ML IV SCH ×2 (05:48→13:27)
[2016-08-08] MEDS: OXYcodone IR 5MG TABLET PO PRN (05:58)
[2016-08-08 07:39] VITALS: BP 113/69
[2016-08-08] MEDS: PANTOPRAZOLE 40 MG IV IVPush SCH (09:33)
[2016-08-08] MEDS: ACYCLOVIR 200 MG CAPSULE PO SCH ×2 (09:33→21:53)
[2016-08-08] MEDS: methylPREDNISolone SOD SUCC 125 MG/2 ML IVPush SCH ×2 (09:33→21:47)
[2016-08-08] MEDS: GABAPENTIN 100 MG CAPSULE PO SCH ×2 (09:33→21:53)
[2016-08-08] MEDS: FLUCONAZOLE 100 MG TABLET PO SCH (09:34)
[2016-08-08] MEDS: CYTARABINE IV SCH ×2 (11:09→22:33)
[2016-08-08] MEDS: SODIUM CHLORIDE 0.9% IV SCH ×3 (11:09→22:33)
[2016-08-08] MEDS: ENOXAPARIN 80 MG/0.8 ML SQ SCH ×2 (11:32→21:51)
[2016-08-08] MEDS: ONDANSETRON 16 MG, DEXAMETHASONE 12 MG in SODIUM CHLORIDE 0.9% 50 ML IVPB SCH (12:03)
[2016-08-08 13:16] VITALS: BP 106/64
[2016-08-08] MEDS ORDERED: SODIUM CHLORIDE 0.9% IV ONE (14:30)
[2016-08-08] MEDS ORDERED: LEUCOVORIN IV ONE (14:30)
[2016-08-08] MEDS: POTASSIUM CHLORIDE 20 MEQ PACKET PO SCH (16:37)
[2016-08-08 19:45] VITALS: BP 112/67
[2016-08-08] MEDS: IMATINIB 100 MG TABLET PO SCH (19:55)
[2016-08-08] MEDS ORDERED: ALLOPURINOL 300 MG TABLET PO SCH (21:00)
[2016-08-08] MEDS: LEVOFLOXACIN 500 MG TABLET PO SCH (21:53)
[2016-08-08] MEDS: LEUCOVORIN IV SCH (22:30)
[2016-08-09 01:23] VITALS: BP 110/63
[2016-08-09] MEDS: OXYcodone IR 5MG TABLET PO PRN ×3 (01:42→21:12)
[2016-08-09] MEDS: SODIUM CHLORIDE 0.45% IV SCH ×3 (02:00→22:01)
[2016-08-09] MEDS: POTASSIUM CHLORIDE IV SCH ×3 (02:00→22:01)
[2016-08-09] MEDS: SODIUM ACETATE IV SCH ×3 (02:00→22:01)
[2016-08-09] MEDS: DEXAMETHASONE OPHTH 0.1%, 5ML EACHEYE SCH ×4 (04:47→21:04)
[2016-08-09] MEDS: SODIUM CHLORIDE 0.9% IV SCH ×2 (04:47→10:30)
[2016-08-09] MEDS: LEUCOVORIN IV SCH ×2 (04:47→10:30)
[2016-08-09 06:10] LABS: ASPARTATE AMINO TRANSFERASE 52 U/L (15-37); BLOOD UREA NITROGEN 14 mg/dL (7-18)
[2016-08-09 07:38] VITALS: BP 112/70
[2016-08-09] MEDS: ACYCLOVIR 200 MG CAPSULE PO SCH ×2 (07:39→21:13)
[2016-08-09] MEDS: FLUCONAZOLE 100 MG TABLET PO SCH (07:39)
[2016-08-09] MEDS: PANTOPROZOLE 40MG TABLET PO SCH (07:39)
[2016-08-09] MEDS: GABAPENTIN 100 MG CAPSULE PO SCH ×2 (07:39→21:12)
[2016-08-09] MEDS: methylPREDNISolone SOD SUCC 125 MG/2 ML IVPush SCH (10:30)
[2016-08-09] MEDS: ENOXAPARIN 80 MG/0.8 ML SQ SCH ×2 (12:08→23:15)
[2016-08-09 13:25] VITALS: BP 111/63
[2016-08-09] MEDS ORDERED: POTASSIUM CHLORIDE IV SCH (16:30)
[2016-08-09] MEDS ORDERED: SODIUM ACETATE IV SCH (16:30)
[2016-08-09] MEDS ORDERED: SODIUM CHLORIDE 0.45% IV SCH (16:30)
[2016-08-09] MEDS: POTASSIUM CHLORIDE 20 MEQ PACKET PO SCH (16:34)
[2016-08-09] MEDS: IMATINIB 100 MG TABLET PO SCH (17:49)
[2016-08-09 20:56] VITALS: BP 112/78
[2016-08-09] MEDS: POLYETHYLENE GLYCOL 17 GM PACKET NG PRN (21:04)
[2016-08-09] MEDS: LEVOFLOXACIN 500 MG TABLET PO SCH (21:12)
[2016-08-10 01:32] VITALS: BP 103/68
[2016-08-10] MEDS: PROCHLORPERAZINE 5 MG TABLET PO PRN ×2 (01:56→19:04)
[2016-08-10 06:07] LABS: ASPARTATE AMINO TRANSFERASE 32 U/L (15-37); BLOOD UREA NITROGEN 12 mg/dL (7-18)
[2016-08-10] MEDS: DEXAMETHASONE OPHTH 0.1%, 5ML EACHEYE SCH ×4 (06:21→20:08)
[2016-08-10] MEDS: SODIUM ACETATE IV SCH (06:21)
[2016-08-10] MEDS: SODIUM CHLORIDE 0.45% IV SCH (06:21)
[2016-08-10] MEDS: POTASSIUM CHLORIDE IV SCH (06:21)
[2016-08-10] MEDS ORDERED: CATHFLO-ALTEPLASE 2 MG/2 ML CATHFLUSH ONE (06:30)
[2016-08-10 07:27] VITALS: BP 110/68
[2016-08-10] MEDS: ACYCLOVIR 200 MG CAPSULE PO SCH ×2 (07:47→20:08)
[2016-08-10] MEDS: PANTOPROZOLE 40MG TABLET PO SCH (07:47)
[2016-08-10] MEDS: GABAPENTIN 100 MG CAPSULE PO SCH ×2 (07:47→20:08)
[2016-08-10] MEDS: FLUCONAZOLE 100 MG TABLET PO SCH (07:47)
[2016-08-10] MEDS: ENOXAPARIN 80 MG/0.8 ML SQ SCH ×2 (11:53→23:04)
[2016-08-10] MEDS: NS + 40MEQ KCL 1,000 ML IV SCH (11:55)
[2016-08-10] MEDS: OXYcodone IR 5MG TABLET PO PRN (12:00)
[2016-08-10 13:42] VITALS: BP 90/51
[2016-08-10 15:04] VITALS: BP 106/56
[2016-08-10] MEDS: POTASSIUM CHLORIDE 20 MEQ PACKET PO SCH (17:01)
[2016-08-10] MEDS: IMATINIB 100 MG TABLET PO SCH (18:01)
[2016-08-10 18:51] VITALS: BP 95/58
[2016-08-10] MEDS: LEVOFLOXACIN 500 MG TABLET PO SCH (20:08)
[2016-08-11] MEDS: NS + 40MEQ KCL 1,000 ML IV SCH ×2 (01:13→14:50)
[2016-08-11 05:22] VITALS: BP 98/52
[2016-08-11] MEDS: DEXAMETHASONE OPHTH 0.1%, 5ML EACHEYE SCH ×4 (05:25→20:25)
[2016-08-11 06:04] LABS: ASPARTATE AMINO TRANSFERASE 36 U/L (15-37); BLOOD UREA NITROGEN 12 mg/dL (7-18)
[2016-08-11 07:59] VITALS: BP 92/58
[2016-08-11] MEDS: ACYCLOVIR 200 MG CAPSULE PO SCH ×2 (07:59→20:25)
[2016-08-11] MEDS: FLUCONAZOLE 100 MG TABLET PO SCH (07:59)
[2016-08-11] MEDS: GABAPENTIN 100 MG CAPSULE PO SCH ×2 (07:59→20:25)
[2016-08-11] MEDS: PANTOPROZOLE 40MG TABLET PO SCH (07:59)
[2016-08-11] MEDS: OXYcodone IR 5MG TABLET PO PRN ×3 (08:04→21:00)
[2016-08-11] MEDS: POLYETHYLENE GLYCOL 17 GM PACKET NG PRN (08:04)
[2016-08-11] MEDS: TBO-FILGRASTIM 480 MCG/0.8 ML SQ SCH (09:23)
[2016-08-11] MEDS: ENOXAPARIN 80 MG/0.8 ML SQ SCH ×2 (11:56→20:26)
[2016-08-11] MEDS: PROCHLORPERAZINE 5 MG TABLET PO PRN (12:21)
[2016-08-11 13:25] VITALS: BP 98/57
[2016-08-11] MEDS: POTASSIUM CHLORIDE 20 MEQ PACKET PO SCH (18:19)
[2016-08-11] MEDS: IMATINIB 100 MG TABLET PO SCH (18:19)
[2016-08-11] MEDS: LEVOFLOXACIN 500 MG TABLET PO SCH (20:25)
[2016-08-11 20:33] VITALS: BP 106/69
[2016-08-12] MEDS: PROCHLORPERAZINE 5 MG TABLET PO PRN ×2 (01:37→19:21)
[2016-08-12 02:15] VITALS: BP 110/69
[2016-08-12] MEDS: NS + 40MEQ KCL 1,000 ML IV SCH ×2 (04:10→16:05)
[2016-08-12 05:31] LABS: ASPARTATE AMINO TRANSFERASE 29 U/L (15-37); BLOOD UREA NITROGEN 11 mg/dL (7-18)
[2016-08-12] MEDS: DEXAMETHASONE OPHTH 0.1%, 5ML EACHEYE SCH ×4 (06:42→19:22)
[2016-08-12 07:45] VITALS: BP 103/62
[2016-08-12] MEDS: PANTOPROZOLE 40MG TABLET PO SCH (09:12)
[2016-08-12] MEDS: ACYCLOVIR 200 MG CAPSULE PO SCH ×2 (09:13→19:22)
[2016-08-12] MEDS: GABAPENTIN 100 MG CAPSULE PO SCH ×2 (09:13→19:22)
[2016-08-12] MEDS: FLUCONAZOLE 100 MG TABLET PO SCH (09:13)
[2016-08-12] MEDS: ENOXAPARIN 80 MG/0.8 ML SQ SCH ×2 (09:43→19:31)
[2016-08-12] MEDS: OXYcodone IR 5MG TABLET PO PRN ×2 (09:49→17:09)
[2016-08-12] MEDS: TBO-FILGRASTIM 480 MCG/0.8 ML SQ SCH (11:13)
[2016-08-12 13:37] VITALS: BP 112/75
[2016-08-12] MEDS ORDERED: LIDOCAINE 1%, 20ML ONE (16:01)
[2016-08-12] MEDS ORDERED: SODIUM BICARBONATE 4.2%, 5ML ONE (16:01)
[2016-08-12] MEDS ORDERED: CYTARABINE/PF 100 MG in SODIUM CHLORIDE 0.9% 4 ML IT ONE (16:30)
[2016-08-12] MEDS: POTASSIUM CHLORIDE 20 MEQ PACKET PO SCH (17:58)
[2016-08-12] MEDS: IMATINIB 100 MG TABLET PO SCH (18:36)
[2016-08-12] MEDS: LEVOFLOXACIN 500 MG TABLET PO SCH (19:22)
[2016-08-12 19:45] VITALS: BP 110/69
[2016-08-12] MEDS: ZOLPIDEM 5MG TABLET PO PRN (23:41)
[2016-08-13 05:50] VITALS: BP 123/65
[2016-08-13] MEDS: DEXAMETHASONE OPHTH 0.1%, 5ML EACHEYE SCH ×4 (05:58→21:54)
[2016-08-13 06:23] LABS: ASPARTATE AMINO TRANSFERASE 14 U/L (15-37); BLOOD UREA NITROGEN 11 mg/dL (7-18)
[2016-08-13 06:55] VITALS: BP 99/55
[2016-08-13] MEDS: NS + 40MEQ KCL 1,000 ML IV SCH ×2 (09:17→21:54)
[2016-08-13] MEDS: ACYCLOVIR 200 MG CAPSULE PO SCH ×2 (09:18→21:54)
[2016-08-13] MEDS: PANTOPROZOLE 40MG TABLET PO SCH (09:18)
[2016-08-13] MEDS: FLUCONAZOLE 100 MG TABLET PO SCH (09:18)
[2016-08-13] MEDS: GABAPENTIN 100 MG CAPSULE PO SCH ×2 (09:18→21:54)
[2016-08-13] MEDS: ENOXAPARIN 80 MG/0.8 ML SQ SCH ×2 (09:19→22:45)
[2016-08-13] MEDS: TBO-FILGRASTIM 480 MCG/0.8 ML SQ SCH (10:20)
[2016-08-13] MEDS ORDERED: CYTARABINE/PF 100 MG in SODIUM CHLORIDE 0.9% 4 ML IT ONE (10:30)
[2016-08-13] MEDS: OXYcodone IR 5MG TABLET PO PRN ×2 (11:38→21:54)
[2016-08-13 11:52] VITALS: BP 100/68
[2016-08-13] MEDS: PROCHLORPERAZINE 5 MG TABLET PO PRN (14:53)
[2016-08-13 15:51] VITALS: BP 116/74
[2016-08-13] MEDS ORDERED: ACETAMINOPHEN 325 MG TABLET PO ONE (16:30)
[2016-08-13] MEDS ORDERED: DIPHENHYDRAMINE 50 MG/ML, 1ML IVPush ONE (16:30)
[2016-08-13] MEDS ORDERED: FAMOTIDINE 20 MG/2 ML IVPush ONE (16:30)
[2016-08-13] MEDS ORDERED: RITUXIMAB 750 MG in SODIUM CHLORIDE 0.9% 250 ML IV ONE (17:00)
[2016-08-13] MEDS: ONDANSETRON 2MG/ML, 2ML IVPush PRN (17:43)
[2016-08-13 19:57] VITALS: BP 123/70
[2016-08-13] MEDS: IMATINIB 100 MG TABLET PO SCH (20:15)
[2016-08-13] MEDS: POTASSIUM CHLORIDE 20 MEQ PACKET PO SCH (20:28)
[2016-08-13] MEDS: ZOLPIDEM 5MG TABLET PO PRN (21:54)
[2016-08-13] MEDS: LEVOFLOXACIN 500 MG TABLET PO SCH (21:54)
[2016-08-14] VITALS (10 sets, daily range): BP systolic 96–114; BP diastolic 52–78
[2016-08-14] MEDS: DEXAMETHASONE OPHTH 0.1%, 5ML EACHEYE SCH ×4 (05:25→21:27)
[2016-08-14 05:59] LABS: BLOOD UREA NITROGEN 13 mg/dL (7-18)
[2016-08-14 06:05] LABS: ASPARTATE AMINO TRANSFERASE 18 U/L (15-37)
[2016-08-14] MEDS: OXYcodone IR 5MG TABLET PO PRN ×3 (07:45→21:27)
[2016-08-14 08:27] LABS: DIFF TOTAL CELLS COUNTED 100 CELL DIFF
[2016-08-14 08:33] LABS: ANISOCYTOSIS 1+; POIKILOCYTOSIS 1+; VERIFY COUNTS? YES
[2016-08-14] MEDS: PANTOPROZOLE 40MG TABLET PO SCH (09:01)
[2016-08-14] MEDS: FLUCONAZOLE 100 MG TABLET PO SCH (09:02)
[2016-08-14] MEDS: ACYCLOVIR 200 MG CAPSULE PO SCH ×2 (09:02→21:27)
[2016-08-14] MEDS: GABAPENTIN 100 MG CAPSULE PO SCH ×2 (09:02→21:27)
[2016-08-14] MEDS: TBO-FILGRASTIM 480 MCG/0.8 ML SQ SCH (10:51)
[2016-08-14] MEDS ORDERED: ACETAMINOPHEN 325 MG TABLET PO ONE (13:00)
[2016-08-14] MEDS ORDERED: DIPHENHYDRAMINE 25 MG CAPSULE PO PRN (13:00)
[2016-08-14] MEDS: ENOXAPARIN 80 MG/0.8 ML SQ SCH (13:14)
[2016-08-14] MEDS: NS + 40MEQ KCL 1,000 ML IV SCH (14:39)
[2016-08-14] MEDS: ONDANSETRON 2MG/ML, 2ML IVPush PRN (17:30)
[2016-08-14] MEDS: IMATINIB 100 MG TABLET PO SCH (17:33)
[2016-08-14] MEDS: POTASSIUM CHLORIDE 20 MEQ PACKET PO SCH (17:34)
[2016-08-14] MEDS: LEVOFLOXACIN 500 MG TABLET PO SCH (21:27)
[2016-08-14] MEDS: ZOLPIDEM 5MG TABLET PO PRN (21:27)
[2016-08-15] MEDS: ENOXAPARIN 80 MG/0.8 ML SQ SCH ×2 (01:13→12:17)
[2016-08-15 02:57] VITALS: BP 102/57
[2016-08-15] MEDS: DEXAMETHASONE OPHTH 0.1%, 5ML EACHEYE SCH ×2 (05:11→10:13)
[2016-08-15 05:28] LABS: ASPARTATE AMINO TRANSFERASE 15 U/L (15-37); BLOOD UREA NITROGEN 10 mg/dL (7-18)
[2016-08-15 06:11] LABS: DIFF TOTAL CELLS COUNTED 25 CELL DIFFERENTIAL
[2016-08-15 06:16] LABS: VERIFY COUNTS? YES
[2016-08-15 06:17] LABS: ANISOCYTOSIS 1+
[2016-08-15] MEDS: OXYcodone IR 5MG TABLET PO PRN (07:30)
[2016-08-15 08:40] VITALS: BP 117/79
[2016-08-15] MEDS: PANTOPROZOLE 40MG TABLET PO SCH (10:12)
[2016-08-15] MEDS: FLUCONAZOLE 100 MG TABLET PO SCH (10:12)
[2016-08-15] MEDS: ACYCLOVIR 200 MG CAPSULE PO SCH (10:13)
[2016-08-15] MEDS: GABAPENTIN 100 MG CAPSULE PO SCH (10:13)
[2016-08-15] MEDS ORDERED: ACYC-113 PO (11:09)
[2016-08-15] MEDS ORDERED: FLUC100T4 PO (11:10)
[2016-08-15] MEDS: TBO-FILGRASTIM 480 MCG/0.8 ML SQ SCH (11:11)
[2016-08-15] MEDS ORDERED: LEVO500T8 PO (11:11)
[2016-08-15] MEDS ORDERED: TBO-480S SQ (11:12)
[2016-08-15] MEDS ORDERED: PROC10TA PO (11:13)
[2016-08-15] MEDS ORDERED: POLY17PO5 PO (11:13)
[2016-08-15] MEDS ORDERED: ZOLP5TAB6 PO (11:14)
== END 2016-08-15 12:40 | disposition home or self-care (01) | DRG 839 ==
LOC: 3NW 14:08
PROVIDERS: ADMIT Pathology Hematology; ATTEND Pathology Hematology
PROC: 3E0R305 Introduction of Other Antineoplastic into Spinal Canal, Percutaneous Approach (ICD-10-PCS; principal; 2016-08-07)
PROC: 3E0R305 Introduction of Other Antineoplastic into Spinal Canal, Percutaneous Approach (ICD-10-PCS; 2016-08-13)
PROC: 30233N1 Transfusion of Nonautologous Red Blood Cells into Peripheral Vein, Percutaneous Approach (ICD-10-PCS; 2016-08-14)
DX: Z51.11 Encounter for antineoplastic chemotherapy (principal); C91.00 Acute lymphoblastic leukemia not having achieved remission; D64.9 Anemia, unspecified; F17.210 Nicotine dependence, cigarettes, uncomplicated; F12.90 Cannabis use, unspecified, uncomplicated; T45.1X5A Adverse effect of antineoplastic and immunosuppressive drugs, initial encounter; D70.1 Agranulocytosis secondary to cancer chemotherapy; D69.59 Other secondary thrombocytopenia; Q99.8 Other specified chromosome abnormalities; Z87.01 Personal history of pneumonia (recurrent); Z86.718 Personal history of other venous thrombosis and embolism; Z86.711 Personal history of pulmonary embolism; Z79.01 Long term (current) use of anticoagulants
CPT/HCPCS: 36415; 62270; 71010; 80053; 80375; 81003; 85025; 86850; 86900; 86923; J0640; J1100; J1650; J2405; J2997; J3480; J3490; J9100; J9250; C9113; G0480; J1200; J1447; J2930; J7030; J7040; J7050; J9310; P9040; Q0163; Q0164; S0028

== ENCOUNTER 2016-09-03 07:00 | Inpatient (IN) | payer MEDICAID ==
[~2016-09-03] VITALS: Ht 175.3 cm; Wt 82.1 kg
[~2016-09-03 07:00] MED LIST changes: +ACYC-113 PO; +FLUC100T4 PO; +LEVO500T8 PO; +POLY17PO5 PO; +PROC10TA PO; +TBO-480S SQ; +ZOLP5TAB6 PO
[2016-09-03 08:46] VITALS: BP 119/83
[2016-09-03 09:25] LABS: BLOOD UREA NITROGEN 9 mg/dL (7-18)
[2016-09-03 09:30] LABS: ASPARTATE AMINO TRANSFERASE 42 U/L (15-37)
[2016-09-03] MEDS ORDERED: ENOXAPARIN 80 MG/0.8 ML SQ SCH (11:00)
[2016-09-03] MEDS ORDERED: ACETAMINOPHEN 325 MG TABLET PO ONE (13:00)
[2016-09-03] MEDS ORDERED: POLYETHYLENE GLYCOL 17 GM PACKET PO PRN (13:00)
[2016-09-03] MEDS ORDERED: DIPHENHYDRAMINE 50 MG/ML, 1ML IVPush ONE (13:00)
[2016-09-03 13:28] VITALS: BP 105/68
[2016-09-03] MEDS ORDERED: FOSAPREPITANT 150 MG in SODIUM CHLORIDE 0.9% 150 ML IV ONE (13:30)
[2016-09-03] MEDS ORDERED: RITUXIMAB 750 MG in SODIUM CHLORIDE 0.9% 250 ML IV ONE (14:00)
[2016-09-03] MEDS: SODIUM CHLORIDE 0.9% IVPB SCH (15:06)
[2016-09-03] MEDS: ONDANSETRON 16 MG, DEXAMETHASONE 12 MG in SODIUM CHLORIDE 0.9% 50 ML IVPB SCH (15:06)
[2016-09-03] MEDS: MESNA IVPB SCH (15:06)
[2016-09-03] MEDS ORDERED: FOSAPREPITANT 150 MG in SODIUM CHLORIDE 0.9% 145 ML IV ONE (15:30)
[2016-09-03] MEDS: DEXAMETHASONE 4 MG TABLET PO SCH (16:01)
[2016-09-03] MEDS: OXYcodone IR 5MG TABLET PO PRN (16:02)
[2016-09-03] MEDS ORDERED: IMATINIB 400 MG TABLET PO SCH (17:00)
[2016-09-03] MEDS: FAMOTIDINE 20 MG/2 ML IVPush SCH (17:04)
[2016-09-03] MEDS: IMATINIB 100 MG TABLET PO SCH (17:46)
[2016-09-03] MEDS: SODIUM CHLORIDE 0.9% IV SCH (17:47)
[2016-09-03] MEDS: CYCLOPHOSPHAMIDE IV SCH (17:47)
[2016-09-03 19:57] VITALS: BP 99/65
[2016-09-03] MEDS: ALLOPURINOL 300 MG TABLET PO SCH (21:54)
[2016-09-03] MEDS: GABAPENTIN 100 MG CAPSULE PO SCH (21:54)
[2016-09-03] MEDS: ACYCLOVIR 200 MG CAPSULE PO SCH (21:54)
[2016-09-03] MEDS: TOBRAMYCIN OPHTH 5ML OP SCH (21:55)
[2016-09-03] MEDS: ZOLPIDEM 5MG TABLET PO PRN (23:28)
[2016-09-04] MEDS ORDERED: HEPARIN 5,000 UNITS/ML, 1ML IV ONE (03:00)
[2016-09-04] MEDS ORDERED: HEPARIN 25,000 UNITS/500ML PMX 500 ML IV PRN (03:00)
[2016-09-04 03:01] LABS: ASPARTATE AMINO TRANSFERASE 30 U/L (15-37); BLOOD UREA NITROGEN 9 mg/dL (7-18)
[2016-09-04 04:27] VITALS: BP 94/58
[2016-09-04] MEDS: CYCLOPHOSPHAMIDE IV SCH ×2 (05:55→18:09)
[2016-09-04] MEDS: SODIUM CHLORIDE 0.9% IV SCH ×2 (05:55→18:09)
[2016-09-04] MEDS: TOBRAMYCIN OPHTH 5ML OP SCH ×2 (07:58→21:10)
[2016-09-04] MEDS: LEVOFLOXACIN 500 MG TABLET PO SCH (07:58)
[2016-09-04] MEDS: ACYCLOVIR 200 MG CAPSULE PO SCH ×2 (07:58→21:11)
[2016-09-04] MEDS: GABAPENTIN 100 MG CAPSULE PO SCH ×2 (07:58→21:11)
[2016-09-04] MEDS: OXYcodone IR 5MG TABLET PO PRN ×2 (07:58→10:30)
[2016-09-04] MEDS ORDERED: IMATINIB 400 MG TABLET PO SCH (09:00)
[2016-09-04 09:10] VITALS: BP 126/74
[2016-09-04 14:40] VITALS: BP 115/73
[2016-09-04] MEDS: FAMOTIDINE 20 MG/2 ML IVPush SCH (14:42)
[2016-09-04] MEDS: DEXAMETHASONE 4 MG TABLET PO SCH (14:42)
[2016-09-04] MEDS: ONDANSETRON 16 MG, DEXAMETHASONE 12 MG in SODIUM CHLORIDE 0.9% 50 ML IVPB SCH (14:42)
[2016-09-04] MEDS: MESNA IVPB SCH (18:08)
[2016-09-04] MEDS: SODIUM CHLORIDE 0.9% IVPB SCH (18:08)
[2016-09-04 20:25] VITALS: BP 92/51
[2016-09-04] MEDS: ALLOPURINOL 300 MG TABLET PO SCH (21:11)
[2016-09-05] MEDS: ZOLPIDEM 5MG TABLET PO PRN ×2 (00:54→20:39)
[2016-09-05 02:55] VITALS: BP 99/53
[2016-09-05] MEDS: SODIUM CHLORIDE 0.9% IV SCH ×2 (06:00→18:14)
[2016-09-05] MEDS: CYCLOPHOSPHAMIDE IV SCH ×2 (06:00→18:14)
[2016-09-05 06:25] LABS: ASPARTATE AMINO TRANSFERASE 13 U/L (15-37); BLOOD UREA NITROGEN 11 mg/dL (7-18)
[2016-09-05] MEDS ORDERED: METHOTREXATE/PF 2ML 12 MG in SODIUM CHLORIDE 0.9% 4.52 ML IT ONE (09:00)
[2016-09-05] MEDS: GABAPENTIN 100 MG CAPSULE PO SCH ×2 (09:04→20:23)
[2016-09-05] MEDS: LEVOFLOXACIN 500 MG TABLET PO SCH (09:04)
[2016-09-05] MEDS: ACYCLOVIR 200 MG CAPSULE PO SCH ×2 (09:04→20:23)
[2016-09-05] MEDS: TOBRAMYCIN OPHTH 5ML OP SCH ×2 (09:04→20:23)
[2016-09-05] MEDS: OXYcodone IR 5MG TABLET PO PRN (09:08)
[2016-09-05 09:13] VITALS: BP 125/76
[2016-09-05 13:02] VITALS: BP 114/71
[2016-09-05] MEDS: PROCHLORPERAZINE 10MG TABLET PO PRN (13:49)
[2016-09-05] MEDS: DEXAMETHASONE 4 MG TABLET PO SCH (13:49)
[2016-09-05] MEDS: FAMOTIDINE 20 MG/2 ML IVPush SCH (13:49)
[2016-09-05] MEDS: ONDANSETRON 16 MG, DEXAMETHASONE 12 MG in SODIUM CHLORIDE 0.9% 50 ML IVPB SCH (14:05)
[2016-09-05] MEDS: ALLOPURINOL 300 MG TABLET PO SCH (20:23)
[2016-09-05] MEDS: MESNA IVPB SCH (20:23)
[2016-09-05] MEDS: SODIUM CHLORIDE 0.9% IVPB SCH (20:23)
[2016-09-05] MEDS: HEPARIN 25,000 UNITS/500ML PMX 500 ML IV PRN (20:36)
[2016-09-05] MEDS: HEPARIN 5,000 UNITS/ML, 1ML IV PRN (20:37)
[2016-09-05 20:40] VITALS: BP 92/55
[2016-09-06 02:20] VITALS: BP 120/68
[2016-09-06 03:00] LABS: BLOOD UREA NITROGEN 12 mg/dL (7-18)
[2016-09-06 03:03] LABS: ASPARTATE AMINO TRANSFERASE 14 U/L (15-37)
[2016-09-06] MEDS: SODIUM CHLORIDE 0.9% IV SCH (05:34)
[2016-09-06] MEDS: CYCLOPHOSPHAMIDE IV SCH (05:34)
[2016-09-06] MEDS: TOBRAMYCIN OPHTH 5ML OP SCH ×2 (08:24→20:47)
[2016-09-06] MEDS: GABAPENTIN 100 MG CAPSULE PO SCH ×2 (08:25→20:47)
[2016-09-06] MEDS: LEVOFLOXACIN 500 MG TABLET PO SCH (08:25)
[2016-09-06] MEDS: ACYCLOVIR 200 MG CAPSULE PO SCH ×2 (08:25→20:46)
[2016-09-06 08:34] VITALS: BP 103/67
[2016-09-06] MEDS: HEPARIN 5,000 UNITS/ML, 1ML IV PRN (09:40)
[2016-09-06] MEDS: FAMOTIDINE 20 MG/2 ML IVPush SCH (13:08)
[2016-09-06] MEDS: DEXAMETHASONE 4 MG TABLET PO SCH (13:09)
[2016-09-06] MEDS ORDERED: ONDANSETRON 16 MG in SODIUM CHLORIDE 0.9% 50 ML IVPB ONE (14:00)
[2016-09-06 14:30] VITALS: BP 135/79
[2016-09-06] MEDS ORDERED: SODIUM CHLORIDE 0.9% IV ONE ×2 (17:00→17:30)
[2016-09-06] MEDS ORDERED: VINCRISTINE IV ONE (17:00)
[2016-09-06] MEDS ORDERED: DOXORUBICIN IV ONE (17:30)
[2016-09-06] MEDS: IMATINIB 100 MG TABLET PO SCH (18:12)
[2016-09-06] MEDS: OXYcodone IR 5MG TABLET PO PRN (18:21)
[2016-09-06] MEDS: HEPARIN 25,000 UNITS/500ML PMX 500 ML IV PRN (19:52)
[2016-09-06] MEDS: ALLOPURINOL 300 MG TABLET PO SCH (20:47)
[2016-09-06 21:36] VITALS: BP 97/57
[2016-09-07] MEDS: ZOLPIDEM 5MG TABLET PO PRN ×2 (00:50→22:31)
[2016-09-07 02:22] VITALS: BP 117/76
[2016-09-07 06:05] LABS: BLOOD UREA NITROGEN 12 mg/dL (7-18)
[2016-09-07 06:08] LABS: ASPARTATE AMINO TRANSFERASE 14 U/L (15-37)
[2016-09-07 08:00] VITALS: BP 102/66
[2016-09-07] MEDS: TOBRAMYCIN OPHTH 5ML OP SCH ×2 (08:22→20:38)
[2016-09-07] MEDS: GABAPENTIN 100 MG CAPSULE PO SCH ×2 (08:25→20:38)
[2016-09-07] MEDS: ACYCLOVIR 200 MG CAPSULE PO SCH ×2 (08:25→20:38)
[2016-09-07] MEDS: LEVOFLOXACIN 500 MG TABLET PO SCH (08:26)
[2016-09-07] MEDS: PROCHLORPERAZINE 10MG TABLET PO PRN (12:28)
[2016-09-07 14:30] VITALS: BP 97/61
[2016-09-07] MEDS: OXYcodone IR 5MG TABLET PO PRN (14:32)
[2016-09-07] MEDS: HEPARIN 25,000 UNITS/500ML PMX 500 ML IV PRN (16:34)
[2016-09-07] MEDS: IMATINIB 100 MG TABLET PO SCH (17:47)
[2016-09-07] MEDS: ONDANSETRON ODT 4 MG PO PRN (18:34)
[2016-09-07] MEDS: ALLOPURINOL 300 MG TABLET PO SCH (20:38)
[2016-09-07 20:39] VITALS: BP 105/67
[2016-09-08 02:00] VITALS: BP 94/58
[2016-09-08 06:24] LABS: BLOOD UREA NITROGEN 14 mg/dL (7-18)
[2016-09-08 06:28] LABS: ASPARTATE AMINO TRANSFERASE 15 U/L (15-37)
[2016-09-08] MEDS: ACYCLOVIR 200 MG CAPSULE PO SCH ×2 (08:52→21:34)
[2016-09-08] MEDS: GABAPENTIN 100 MG CAPSULE PO SCH ×2 (08:52→21:34)
[2016-09-08] MEDS: TOBRAMYCIN OPHTH 5ML OP SCH ×2 (08:52→21:45)
[2016-09-08] MEDS: LEVOFLOXACIN 500 MG TABLET PO SCH (08:52)
[2016-09-08 09:01] VITALS: BP 87/54
[2016-09-08] MEDS: ONDANSETRON ODT 4 MG PO PRN ×2 (10:55→17:52)
[2016-09-08] MEDS: HEPARIN 25,000 UNITS/500ML PMX 500 ML IV PRN (12:42)
[2016-09-08 14:30] VITALS: BP 87/48
[2016-09-08] MEDS: TBO-FILGRASTIM 480 MCG/0.8 ML SQ SCH (15:33)
[2016-09-08] MEDS: OXYcodone IR 5MG TABLET PO PRN ×2 (16:59→21:46)
[2016-09-08] MEDS: IMATINIB 100 MG TABLET PO SCH (17:49)
[2016-09-08] MEDS: ZOLPIDEM 5MG TABLET PO PRN (21:33)
[2016-09-08 21:34] VITALS: BP 130/69
[2016-09-08] MEDS: ALLOPURINOL 300 MG TABLET PO SCH (21:34)
[2016-09-09 01:17] VITALS: BP 91/62
[2016-09-09] MEDS: OXYcodone IR 5MG TABLET PO PRN ×3 (01:42→17:34)
[2016-09-09] MEDS: ONDANSETRON ODT 4 MG PO PRN ×3 (05:34→18:12)
[2016-09-09 05:36] LABS: ASPARTATE AMINO TRANSFERASE 16 U/L (15-37); BLOOD UREA NITROGEN 11 mg/dL (7-18)
[2016-09-09] MEDS: HEPARIN 5,000 UNITS/ML, 1ML IV PRN (05:57)
[2016-09-09 06:35] LABS: DIFF TOTAL CELLS COUNTED 100 CELL DIFF
[2016-09-09 06:42] LABS: VERIFY COUNTS? YES
[2016-09-09 06:43] LABS: ANISOCYTOSIS 1+
[2016-09-09 07:24] VITALS: BP 95/56
[2016-09-09] MEDS: HEPARIN 25,000 UNITS/500ML PMX 500 ML IV PRN (09:25)
[2016-09-09] MEDS: ACYCLOVIR 200 MG CAPSULE PO SCH ×2 (10:04→19:45)
[2016-09-09] MEDS: LEVOFLOXACIN 500 MG TABLET PO SCH (10:04)
[2016-09-09] MEDS: GABAPENTIN 100 MG CAPSULE PO SCH ×2 (10:04→19:45)
[2016-09-09] MEDS: TOBRAMYCIN OPHTH 5ML OP SCH ×2 (10:05→19:45)
[2016-09-09 14:00] VITALS: BP 105/75
[2016-09-09] MEDS: TBO-FILGRASTIM 480 MCG/0.8 ML SQ SCH (15:36)
[2016-09-09] MEDS: IMATINIB 100 MG TABLET PO SCH (17:34)
[2016-09-09 19:02] VITALS: BP 112/72
[2016-09-09] MEDS: ALLOPURINOL 300 MG TABLET PO SCH (19:45)
[2016-09-09] MEDS: ZOLPIDEM 5MG TABLET PO PRN (19:45)
[2016-09-10] MEDS: OXYcodone IR 5MG TABLET PO PRN ×4 (00:29→17:43)
[2016-09-10 01:13] VITALS: BP 104/66
[2016-09-10] MEDS: ONDANSETRON ODT 4 MG PO PRN ×3 (01:42→19:51)
[2016-09-10] MEDS: HEPARIN 25,000 UNITS/500ML PMX 500 ML IV PRN ×2 (02:41→19:55)
[2016-09-10 03:20] LABS: ASPARTATE AMINO TRANSFERASE 14 U/L (15-37); BLOOD UREA NITROGEN 10 mg/dL (7-18)
[2016-09-10 07:48] VITALS: BP 87/54
[2016-09-10] MEDS: GABAPENTIN 100 MG CAPSULE PO SCH ×2 (09:17→19:51)
[2016-09-10] MEDS: ACYCLOVIR 200 MG CAPSULE PO SCH ×2 (09:17→19:51)
[2016-09-10] MEDS: TOBRAMYCIN OPHTH 5ML OP SCH ×2 (09:17→19:51)
[2016-09-10] MEDS: LEVOFLOXACIN 500 MG TABLET PO SCH (10:23)
[2016-09-10 14:45] VITALS: BP 102/70
[2016-09-10] MEDS: TBO-FILGRASTIM 480 MCG/0.8 ML SQ SCH (17:43)
[2016-09-10] MEDS: IMATINIB 100 MG TABLET PO SCH (17:45)
[2016-09-10 19:18] VITALS: BP 119/80
[2016-09-10] MEDS: ALLOPURINOL 300 MG TABLET PO SCH (19:51)
[2016-09-10] MEDS: ZOLPIDEM 5MG TABLET PO PRN (21:06)
[2016-09-11 02:24] VITALS: BP 105/67
[2016-09-11] MEDS: ONDANSETRON ODT 4 MG PO PRN ×3 (02:28→14:01)
[2016-09-11 02:58] LABS: ASPARTATE AMINO TRANSFERASE 10 U/L (15-37); BLOOD UREA NITROGEN 9 mg/dL (7-18)
[2016-09-11] MEDS: HEPARIN 5,000 UNITS/ML, 1ML IV PRN (03:30)
[2016-09-11] MEDS: ACYCLOVIR 200 MG CAPSULE PO SCH ×2 (08:14→21:14)
[2016-09-11] MEDS: GABAPENTIN 100 MG CAPSULE PO SCH ×2 (08:14→21:14)
[2016-09-11] MEDS: LEVOFLOXACIN 500 MG TABLET PO SCH (08:14)
[2016-09-11] MEDS: TOBRAMYCIN OPHTH 5ML OP SCH ×2 (08:14→21:14)
[2016-09-11] MEDS: OXYcodone IR 5MG TABLET PO PRN ×3 (08:18→21:20)
[2016-09-11 08:58] VITALS: BP 109/75
[2016-09-11 09:01] VITALS: BP 109/75
[2016-09-11] MEDS: HEPARIN 25,000 UNITS/500ML PMX 500 ML IV PRN (13:01)
[2016-09-11 15:44] VITALS: BP 109/64
[2016-09-11] MEDS: TBO-FILGRASTIM 480 MCG/0.8 ML SQ SCH (16:26)
[2016-09-11] MEDS: IMATINIB 100 MG TABLET PO SCH (18:03)
[2016-09-11 20:48] VITALS: BP 95/53
[2016-09-11] MEDS: ALLOPURINOL 300 MG TABLET PO SCH (21:14)
[2016-09-11] MEDS: ZOLPIDEM 5MG TABLET PO PRN (22:25)
[2016-09-12 01:48] VITALS: BP 94/61
[2016-09-12 03:30] LABS: BLOOD UREA NITROGEN 10 mg/dL (7-18)
[2016-09-12 03:33] LABS: ASPARTATE AMINO TRANSFERASE 13 U/L (15-37)
[2016-09-12 04:10] LABS: DIFF TOTAL CELLS COUNTED 100 CELL DIFF
[2016-09-12 04:14] LABS: ANISOCYTOSIS 1+; VERIFY COUNTS? YES
[2016-09-12 07:43] VITALS: BP 98/65
[2016-09-12] MEDS: GABAPENTIN 100 MG CAPSULE PO SCH (09:31)
[2016-09-12] MEDS: TOBRAMYCIN OPHTH 5ML OP SCH (09:31)
[2016-09-12] MEDS: LEVOFLOXACIN 500 MG TABLET PO SCH (09:31)
[2016-09-12] MEDS: ACYCLOVIR 200 MG CAPSULE PO SCH (09:32)
[2016-09-12] MEDS: OXYcodone IR 5MG TABLET PO PRN ×2 (09:37→17:55)
[2016-09-12] MEDS ORDERED: CYTARABINE IT ONE (13:00)
[2016-09-12] MEDS ORDERED: SODIUM CHLORIDE 0.9% IT ONE (13:00)
[2016-09-12 13:59] VITALS: BP 104/74
[2016-09-12] MEDS ORDERED: OMNIPAQUE 300 MG/ML, 10ML VIAL ONE (14:25)
[2016-09-12] MEDS: TBO-FILGRASTIM 480 MCG/0.8 ML SQ SCH (16:39)
[2016-09-13] MEDS ORDERED: DEXAMETHASONE 4 MG TABLET PO SCH (09:00)
[2016-09-13] MEDS ORDERED: SODIUM CHLORIDE 0.9% IV ONE (17:00)
[2016-09-13] MEDS ORDERED: VINCRISTINE IV ONE (17:00)
== END 2016-09-12 18:30 | disposition home or self-care (01) | DRG 839 ==
LOC: 3NW 08:26
PROVIDERS: ADMIT Internal Medicine Hematology & Oncology; ATTEND Internal Medicine Hematology & Oncology
PROC: 3E0R305 Introduction of Other Antineoplastic into Spinal Canal, Percutaneous Approach (ICD-10-PCS; principal; 2016-09-05)
PROC: 3E0R305 Introduction of Other Antineoplastic into Spinal Canal, Percutaneous Approach (ICD-10-PCS; 2016-09-12)
DX: Z51.11 Encounter for antineoplastic chemotherapy (principal); C91.00 Acute lymphoblastic leukemia not having achieved remission; D64.9 Anemia, unspecified; L65.9 Nonscarring hair loss, unspecified; Z79.01 Long term (current) use of anticoagulants; Z86.718 Personal history of other venous thrombosis and embolism; Z86.711 Personal history of pulmonary embolism
CPT/HCPCS: 36415; 62270; 80053; 81003; 82248; 83735; 85025; 85520; J1100; J1453; J1644; J1650; J2405; J9070; J9100; J9209; J9370; Q0162; Q0164; Q9967; J1447; J7030; J7050; J9000; S0028

== ENCOUNTER 2016-09-24 20:29 | Inpatient (IN) | payer MEDICAID ==
[~2016-09-24] VITALS: Ht 175.3 cm; Wt 84.1 kg
[~2016-09-24 20:29] MED LIST changes: +GABA-826 PO; -GABA100C8 PO
[2016-09-24] MEDS ORDERED: DEXAMETHASONE 4 MG TABLET ONE (20:46)
[2016-09-24] MEDS ORDERED: ACETAMINOPHEN 325 MG TABLET ONE (20:57)
[2016-09-24] MEDS ORDERED: DEXAMETHASONE 4 MG TABLET PO ONE (21:00)
[2016-09-24] MEDS ORDERED: SODIUM CHLORIDE FLUSH 10ML SYR IVF ONE (21:00)
[2016-09-24] MEDS ORDERED: ACETAMINOPHEN 325 MG TABLET PO ONE (21:00)
[2016-09-24] MEDS ORDERED: SODIUM CHLORIDE 0.9% 1,000ML IVBOLUS ONE ×2 (21:00→22:00)
[2016-09-24 21:42] LABS: BLOOD UREA NITROGEN 6 mg/dL (7-18)
[2016-09-24] MEDS ORDERED: OMNIPAQUE 350 MG/ML, 100ML BOTTLE ONE (22:12)
[2016-09-24] MEDS ORDERED: ONDANSETRON 2MG/ML, 2ML ONE (22:16)
[2016-09-24] MEDS ORDERED: MORPHINE SULFATE 4 MG/ML, 1ML ONE (22:16)
[2016-09-24] MEDS: MORPHINE SULFATE 4 MG/ML, 1ML IVPush PRN (22:25)
[2016-09-24] MEDS ORDERED: ONDANSETRON 2MG/ML, 2ML IVPush ONE (22:30)
[2016-09-24] MEDS ORDERED: AMPICILLIN/SULBACTAM 3 GM in SODIUM CHLORIDE 0.9% 100 ML IV ONE (23:30)
[2016-09-25] MEDS ORDERED: ENOXAPARIN 80 MG/0.8 ML SQ ONE
[2016-09-25] MEDS ORDERED: MORPHINE SULFATE 4 MG/ML, 1ML ONE (00:12)
[2016-09-25] MEDS ORDERED: ENOXAPARIN 80 MG/0.8 ML ONE (00:12)
[2016-09-25] MEDS: MORPHINE SULFATE 4 MG/ML, 1ML IVPush PRN (00:13)
[2016-09-25 01:09] VITALS: BP 100/62
[2016-09-25] MEDS ORDERED: ACETAMINOPHEN 325 MG TABLET PO PRN (02:30)
[2016-09-25] MEDS ORDERED: POLYETHYLENE GLYCOL 17 GM PACKET PO PRN (02:30)
[2016-09-25] MEDS ORDERED: DOCUSATE 100 MG CAPSULE PO PRN (02:30)
[2016-09-25] MEDS ORDERED: hydrALAzine 20 MG/ML, 1ML IVPush PRN (02:30)
[2016-09-25] MEDS ORDERED: PROCHLORPERAZINE 10MG TABLET PO PRN (02:30)
[2016-09-25] MEDS ORDERED: BISACODYL 10 MG SUPP PR PRN (02:30)
[2016-09-25] MEDS: DEXAMETHASONE 4 MG/ML, 1ML IVPush SCH ×4 (03:20→22:17)
[2016-09-25] MEDS: SODIUM CHLORIDE 0.9% 1,000 ML IV SCH ×4 (03:20→22:37)
[2016-09-25] MEDS: OXYcodone IR 5MG TABLET PO PRN ×4 (03:47→20:45)
[2016-09-25 04:01] LABS: ASPARTATE AMINO TRANSFERASE 22 U/L (15-37); BLOOD UREA NITROGEN 6 mg/dL (7-18)
[2016-09-25] MEDS: AMPICILLIN/SULBACTAM 3 GM in SODIUM CHLORIDE 0.9% 100 ML IV SCH ×4 (06:05→23:55)
[2016-09-25 08:21] LABS: DIFF TOTAL CELLS COUNTED 100 CELL DIFF
[2016-09-25] MEDS ORDERED: TBO-FILGRASTIM 480 MCG/0.8 ML SQ SCH (09:00)
[2016-09-25] MEDS: GABAPENTIN 100 MG CAPSULE PO SCH ×2 (09:00→11:04)
[2016-09-25] MEDS: ACYCLOVIR 200 MG CAPSULE PO SCH ×2 (09:00→11:04)
[2016-09-25 09:44] LABS: ANISOCYTOSIS 1+; VERIFY COUNTS? YES
[2016-09-25 09:45] VITALS: BP 105/79
[2016-09-25] MEDS: IMATINIB 100 MG TABLET PO SCH (11:03)
[2016-09-25] MEDS: ENOXAPARIN 80 MG/0.8 ML SQ SCH ×2 (11:04→23:55)
[2016-09-25] MEDS: NYSTATIN 500,000 UNITS/5 ML UDC PO SCH ×3 (12:01→21:00)
[2016-09-25 14:15] VITALS: BP 111/72
[2016-09-25 19:40] VITALS: BP 117/76
[2016-09-25] MEDS: TRAZODONE 50MG TABLET PO PRN (22:18)
[2016-09-25] MEDS: ALLOPURINOL 300 MG TABLET PO SCH (22:18)
[2016-09-26 01:45] VITALS: BP 111/69
[2016-09-26] MEDS ORDERED: SODIUM CHLORIDE 0.9% 1,000 ML IV SCH (02:17)
[2016-09-26] MEDS: DEXAMETHASONE 4 MG/ML, 1ML IVPush SCH ×2 (03:54→10:00)
[2016-09-26] MEDS: OXYcodone IR 5MG TABLET PO PRN (03:54)
[2016-09-26 04:25] LABS: BLOOD UREA NITROGEN 9 mg/dL (7-18)
[2016-09-26 04:26] LABS: ASPARTATE AMINO TRANSFERASE 15 U/L (15-37)
[2016-09-26 04:36] LABS: DIFF TOTAL CELLS COUNTED 100 CELL DIFF
[2016-09-26 04:39] LABS: ANISOCYTOSIS 1+
[2016-09-26 04:40] LABS: POLYCHROMASIA 1+
[2016-09-26 04:41] LABS: VERIFY COUNTS? YES
[2016-09-26] MEDS: AMPICILLIN/SULBACTAM 3 GM in SODIUM CHLORIDE 0.9% 100 ML IV SCH ×4 (05:54→22:22)
[2016-09-26] MEDS: NYSTATIN 500,000 UNITS/5 ML UDC PO SCH ×4 (05:55→22:22)
[2016-09-26] MEDS: SODIUM CHLORIDE 0.9% 1,000 ML IV SCH ×3 (05:55→22:22)
[2016-09-26 07:42] VITALS: BP 93/56
[2016-09-26] MEDS: ACYCLOVIR 200 MG CAPSULE PO SCH ×2 (08:05→22:23)
[2016-09-26] MEDS: GABAPENTIN 100 MG CAPSULE PO SCH ×2 (08:05→22:23)
[2016-09-26] MEDS: ENOXAPARIN 80 MG/0.8 ML SQ SCH ×2 (11:18→22:22)
[2016-09-26] MEDS: DEXAMETHASONE 4 MG TABLET PO SCH ×2 (11:21→16:42)
[2016-09-26] MEDS: IMATINIB 100 MG TABLET PO SCH ×2 (13:37→16:44)
[2016-09-26 13:45] VITALS: BP 109/69
[2016-09-26 18:40] VITALS: BP 106/68
[2016-09-26] MEDS: ALLOPURINOL 300 MG TABLET PO SCH (22:23)
[2016-09-26] MEDS: TRAZODONE 50MG TABLET PO PRN (22:25)
[2016-09-27 01:46] VITALS: BP 107/70
[2016-09-27] MEDS: AMPICILLIN/SULBACTAM 3 GM in SODIUM CHLORIDE 0.9% 100 ML IV SCH ×4 (04:19→23:46)
[2016-09-27 04:57] LABS: BLOOD UREA NITROGEN 8 mg/dL (7-18)
[2016-09-27 05:00] LABS: ASPARTATE AMINO TRANSFERASE 15 U/L (15-37)
[2016-09-27] MEDS: SODIUM CHLORIDE 0.9% 1,000 ML IV SCH ×2 (05:15→15:02)
[2016-09-27] MEDS: NYSTATIN 500,000 UNITS/5 ML UDC PO SCH ×4 (05:15→20:40)
[2016-09-27 07:16] VITALS: BP 100/54
[2016-09-27] MEDS: ACYCLOVIR 200 MG CAPSULE PO SCH ×2 (07:39→20:41)
[2016-09-27] MEDS: GABAPENTIN 100 MG CAPSULE PO SCH ×2 (07:39→20:40)
[2016-09-27] MEDS: DEXAMETHASONE 4 MG TABLET PO SCH ×3 (07:39→16:09)
[2016-09-27] MEDS: ENOXAPARIN 80 MG/0.8 ML SQ SCH ×2 (10:49→23:47)
[2016-09-27] MEDS: IMATINIB 100 MG TABLET PO SCH (10:55)
[2016-09-27] MEDS ORDERED: DEXA4TAB PO (14:07)
[2016-09-27] MEDS ORDERED: AMOX1TAB64 PO (14:07)
[2016-09-27] MEDS ORDERED: NYST1000 PO (14:07)
[2016-09-27 14:48] VITALS: BP 108/72
[2016-09-27] MEDS: OXYcodone IR 5MG TABLET PO PRN (15:17)
[2016-09-27 19:37] VITALS: BP 106/62
[2016-09-27] MEDS: SODIUM CHLORIDE FLUSH 10ML SYR IVF SCH (20:40)
[2016-09-27] MEDS: ALLOPURINOL 300 MG TABLET PO SCH (20:41)
[2016-09-27] MEDS: TRAZODONE 50MG TABLET PO PRN (20:41)
[2016-09-28] MEDS: OXYcodone IR 5MG TABLET PO PRN ×2 (00:46→07:55)
[2016-09-28 02:00] VITALS: BP 104/63
[2016-09-28 04:58] LABS: BLOOD UREA NITROGEN 10 mg/dL (7-18)
[2016-09-28] MEDS: AMPICILLIN/SULBACTAM 3 GM in SODIUM CHLORIDE 0.9% 100 ML IV SCH (05:36)
[2016-09-28] MEDS: NYSTATIN 500,000 UNITS/5 ML UDC PO SCH (05:36)
[2016-09-28 06:48] VITALS: BP 116/75
[2016-09-28] MEDS: ACYCLOVIR 200 MG CAPSULE PO SCH (07:51)
[2016-09-28] MEDS: GABAPENTIN 100 MG CAPSULE PO SCH (07:51)
[2016-09-28] MEDS: SODIUM CHLORIDE FLUSH 10ML SYR IVF SCH (07:51)
[2016-09-28] MEDS: DEXAMETHASONE 4 MG TABLET PO SCH (07:54)
[2016-09-28] MEDS ORDERED: AMOX1TAB64 PO (08:32)
[2016-09-28] MEDS: IMATINIB 100 MG TABLET PO SCH (08:45)
== END 2016-09-28 09:00 | disposition home or self-care (01) | DRG 872 ==
LOC: ED 20:59 → EDIP 23:35 → 3NW 09-25 00:38
PROVIDERS: ADMIT Internal Medicine; ATTEND Internal Medicine
DX: A41.9 Sepsis, unspecified organism (principal); C91.00 Acute lymphoblastic leukemia not having achieved remission; D68.69 Other thrombophilia; J02.9 Acute pharyngitis, unspecified; D53.9 Nutritional anemia, unspecified; D70.9 Neutropenia, unspecified; D89.9 Disorder involving the immune mechanism, unspecified; D50.9 Iron deficiency anemia, unspecified; Q99.8 Other specified chromosome abnormalities; Z87.891 Personal history of nicotine dependence; Z79.01 Long term (current) use of anticoagulants; Z86.718 Personal history of other venous thrombosis and embolism; Z86.711 Personal history of pulmonary embolism; Z83.3 Family history of diabetes mellitus
CPT/HCPCS: 36415; 70491; 71010; 80048; 80053; 81003; 82040; 83605; 83735; 85025; 87040; 87081; 87880; 96372; 96374; 96375; 96376; J0295; J1100; J1650; J2405; Q9967; J7030

== ENCOUNTER 2016-10-01 11:46 | Inpatient (IN) | payer MEDICAID ==
[~2016-10-01] VITALS: Ht 175.3 cm; Wt 79.9 kg
[~2016-10-01 11:46] MED LIST changes: +AMOX1TAB64 PO; +DEXA4TAB PO; +NYST1000 PO
[2016-10-01] MEDS ORDERED: SODIUM ACETATE 75 MEQ in SODIUM CHLORIDE 0.45% 1,000 ML IV SCH (12:00)
[2016-10-01 12:30] VITALS: BP 129/79
[2016-10-01 13:00] VITALS: BP 129/79
[2016-10-01 14:15] LABS: BLOOD UREA NITROGEN 18 mg/dL (7-18)
[2016-10-01 14:19] LABS: ASPARTATE AMINO TRANSFERASE 20 U/L (15-37)
[2016-10-01 14:46] LABS: ANISOCYTOSIS 1+; POLYCHROMASIA 1+
[2016-10-01] MEDS: DEXAMETHASONE OPHTH 0.1%, 5ML EACHEYE SCH ×2 (18:29→21:53)
[2016-10-01 19:23] VITALS: BP 105/64
[2016-10-01] MEDS ORDERED: FAMOTIDINE 20 MG/2 ML IVPush ONE (20:30)
[2016-10-01] MEDS ORDERED: methylPREDNISolone SOD SUCC 125 MG/2 ML IVPush SCH (20:30)
[2016-10-01] MEDS ORDERED: METHOTREXATE IV ONE ×2 (21:00→23:00)
[2016-10-01] MEDS ORDERED: SODIUM CHLORIDE 0.9% IV ONE ×2 (21:00→23:00)
[2016-10-01] MEDS: DIPHENHYDRAMINE 50 MG CAPSULE PO PRN (21:52)
[2016-10-01] MEDS: ONDANSETRON 16 MG, DEXAMETHASONE 12 MG in SODIUM CHLORIDE 0.9% 50 ML IVPB SCH (21:53)
[2016-10-01] MEDS ORDERED: HEPARIN 5,000 UNITS/ML, 1ML IV ONE (23:00)
[2016-10-01] MEDS ORDERED: HEPARIN 25,000 UNITS/500ML PMX 500 ML IV PRN (23:00)
[2016-10-01] MEDS: ZOLPIDEM 5MG TABLET PO PRN (23:34)
[2016-10-01] MEDS: IMATINIB 100 MG TABLET PO SCH (23:35)
[2016-10-02] MEDS ORDERED: HEPARIN 5,000 UNITS/ML, 1ML IV PRN (03:00)
[2016-10-02] MEDS: DEXAMETHASONE OPHTH 0.1%, 5ML EACHEYE SCH ×4 (06:22→21:33)
[2016-10-02 07:00] VITALS: BP 100/58
[2016-10-02] MEDS: methylPREDNISolone SOD SUCC 125 MG/2 ML IVPush SCH ×2 (11:21→23:43)
[2016-10-02 13:20] VITALS: BP 97/59
[2016-10-02] MEDS: SODIUM BICARBONATE 8.4% 150 MEQ in DEXTROSE 5% 1,000 ML IV SCH (14:29)
[2016-10-02] MEDS ORDERED: PROCHLORPERAZINE 10MG TABLET PO PRN (14:30)
[2016-10-02] MEDS: NYSTATIN 500,000 UNITS/5 ML UDC PO SCH ×2 (16:00→21:34)
[2016-10-02] MEDS: IMATINIB 100 MG TABLET PO SCH (18:44)
[2016-10-02] MEDS: GABAPENTIN 100 MG CAPSULE PO SCH (18:55)
[2016-10-02] MEDS: LORazepam 1MG TABLET PO PRN (18:55)
[2016-10-02 19:22] VITALS: BP 88/55
[2016-10-02] MEDS: ZOLPIDEM 5MG TABLET PO PRN (21:33)
[2016-10-02] MEDS: ALLOPURINOL 300 MG TABLET PO SCH (21:33)
[2016-10-02] MEDS: ACYCLOVIR 200 MG CAPSULE PO SCH (21:33)
[2016-10-02] MEDS: ONDANSETRON 16 MG, DEXAMETHASONE 12 MG in SODIUM CHLORIDE 0.9% 50 ML IVPB SCH (21:34)
[2016-10-03 01:22] VITALS: BP 86/42
[2016-10-03] MEDS: SODIUM BICARBONATE 8.4% 150 MEQ in DEXTROSE 5% 1,000 ML IV SCH (01:31)
[2016-10-03] MEDS: HEPARIN 25,000 UNITS/500ML PMX 500 ML IV PRN (01:38)
[2016-10-03] MEDS: LORazepam 1MG TABLET PO PRN ×2 (02:32→18:04)
[2016-10-03] MEDS: GABAPENTIN 100 MG CAPSULE PO SCH ×2 (04:40→18:01)
[2016-10-03] MEDS: NYSTATIN 500,000 UNITS/5 ML UDC PO SCH ×4 (04:43→21:40)
[2016-10-03] MEDS: DEXAMETHASONE OPHTH 0.1%, 5ML EACHEYE SCH ×4 (04:43→21:00)
[2016-10-03 05:40] LABS: BLOOD UREA NITROGEN 14 mg/dL (7-18)
[2016-10-03 06:04] LABS: ASPARTATE AMINO TRANSFERASE 8 U/L (15-37)
[2016-10-03 06:53] VITALS: BP 105/67
[2016-10-03] MEDS: ACYCLOVIR 200 MG CAPSULE PO SCH ×2 (07:53→21:40)
[2016-10-03] MEDS ORDERED: METHOTREXATE/PF 2ML 12 MG in SODIUM CHLORIDE 0.9% 4.52 ML IT ONE (10:00)
[2016-10-03] MEDS ORDERED: LIDOCAINE 1%, 20ML ONE (10:38)
[2016-10-03] MEDS: methylPREDNISolone SOD SUCC 125 MG/2 ML IVPush SCH ×2 (12:00→23:48)
[2016-10-03 12:44] VITALS: BP 98/61
[2016-10-03] MEDS: OXYcodone/APAP 5/325MG TABLET PO PRN (13:08)
[2016-10-03] MEDS ORDERED: SODIUM CHLORIDE 0.9% IV ONE (14:15)
[2016-10-03] MEDS ORDERED: LEUCOVORIN IV ONE (14:15)
[2016-10-03] MEDS: SODIUM ACETATE 75 MEQ in SODIUM CHLORIDE 0.45% 1,000 ML IV SCH ×2 (14:30→21:41)
[2016-10-03] MEDS ORDERED: ONDANSETRON 16 MG, DEXAMETHASONE 12 MG in SODIUM CHLORIDE 0.9% 50 ML IVPB SCH (14:30)
[2016-10-03] MEDS: CYTARABINE IV SCH (16:46)
[2016-10-03] MEDS: SODIUM CHLORIDE 0.9% IV SCH ×2 (16:46→20:09)
[2016-10-03] MEDS: IMATINIB 100 MG TABLET PO SCH (16:47)
[2016-10-03] MEDS: LEUCOVORIN IV SCH (20:09)
[2016-10-03 21:19] VITALS: BP 92/56
[2016-10-03] MEDS: ONDANSETRON 16 MG, DEXAMETHASONE 12 MG in SODIUM CHLORIDE 0.9% 50 ML IVPB SCH (21:40)
[2016-10-03] MEDS: ALLOPURINOL 300 MG TABLET PO SCH (21:40)
[2016-10-03] MEDS: ZOLPIDEM 5MG TABLET PO PRN (21:53)
[2016-10-04] MEDS: LEUCOVORIN IV SCH ×2 (00:56→08:12)
[2016-10-04] MEDS: SODIUM CHLORIDE 0.9% IV SCH ×4 (00:56→17:25)
[2016-10-04] MEDS: HEPARIN 25,000 UNITS/500ML PMX 500 ML IV PRN ×2 (03:20→21:57)
[2016-10-04 03:41] VITALS: BP 102/61
[2016-10-04 04:00] LABS: ASPARTATE AMINO TRANSFERASE 18 U/L (15-37); BLOOD UREA NITROGEN 17 mg/dL (7-18)
[2016-10-04] MEDS: CYTARABINE IV SCH ×2 (04:42→17:25)
[2016-10-04] MEDS: GABAPENTIN 100 MG CAPSULE PO SCH ×2 (05:00→17:47)
[2016-10-04] MEDS: NYSTATIN 500,000 UNITS/5 ML UDC PO SCH ×4 (05:00→21:59)
[2016-10-04] MEDS: DEXAMETHASONE OPHTH 0.1%, 5ML EACHEYE SCH ×4 (05:00→22:00)
[2016-10-04 07:22] VITALS: BP 114/59
[2016-10-04] MEDS: ACYCLOVIR 200 MG CAPSULE PO SCH ×2 (08:12→22:01)
[2016-10-04] MEDS: SODIUM ACETATE 75 MEQ in SODIUM CHLORIDE 0.45% 1,000 ML IV SCH ×3 (09:34→18:59)
[2016-10-04] MEDS: methylPREDNISolone SOD SUCC 125 MG/2 ML IVPush SCH (11:28)
[2016-10-04 12:58] VITALS: BP 116/71
[2016-10-04] MEDS: IMATINIB 100 MG TABLET PO SCH (17:47)
[2016-10-04] MEDS ORDERED: maalox/diphenh/lido/sucralfate 5 ML PO PRN (18:30)
[2016-10-04 19:02] VITALS: BP 122/73
[2016-10-04] MEDS: FLUCONAZOLE 100 MG TABLET PO SCH (22:00)
[2016-10-04] MEDS: ALLOPURINOL 300 MG TABLET PO SCH (22:00)
[2016-10-04] MEDS: ZOLPIDEM 5MG TABLET PO PRN (22:01)
[2016-10-04] MEDS: ONDANSETRON 16 MG, DEXAMETHASONE 12 MG in SODIUM CHLORIDE 0.9% 50 ML IVPB SCH (22:27)
[2016-10-05 01:44] VITALS: BP 97/57
[2016-10-05] MEDS: CYTARABINE IV SCH (05:23)
[2016-10-05] MEDS: SODIUM CHLORIDE 0.9% IV SCH (05:23)
[2016-10-05] MEDS: SODIUM ACETATE 75 MEQ in SODIUM CHLORIDE 0.45% 1,000 ML IV SCH ×3 (05:24→22:07)
[2016-10-05 05:47] LABS: ASPARTATE AMINO TRANSFERASE 13 U/L (15-37); BLOOD UREA NITROGEN 14 mg/dL (7-18)
[2016-10-05] MEDS: NYSTATIN 500,000 UNITS/5 ML UDC PO SCH ×4 (06:25→22:08)
[2016-10-05] MEDS: GABAPENTIN 100 MG CAPSULE PO SCH ×2 (06:25→18:30)
[2016-10-05] MEDS: DEXAMETHASONE OPHTH 0.1%, 5ML EACHEYE SCH ×4 (06:25→22:08)
[2016-10-05 07:33] VITALS: BP 100/63
[2016-10-05] MEDS: FLUCONAZOLE 100 MG TABLET PO SCH (09:43)
[2016-10-05] MEDS: ACYCLOVIR 200 MG CAPSULE PO SCH ×2 (09:43→22:08)
[2016-10-05] MEDS: LORazepam 1MG TABLET PO PRN ×2 (09:46→17:07)
[2016-10-05] MEDS: SERTRALINE 50MG TABLET PO SCH (12:49)
[2016-10-05 14:55] VITALS: BP 107/64
[2016-10-05] MEDS: HEPARIN 25,000 UNITS/500ML PMX 500 ML IV PRN (16:41)
[2016-10-05] MEDS: IMATINIB 100 MG TABLET PO SCH (18:34)
[2016-10-05] MEDS: ZOLPIDEM 5MG TABLET PO PRN (22:07)
[2016-10-05] MEDS: ALLOPURINOL 300 MG TABLET PO SCH (22:07)
[2016-10-05 22:44] VITALS: BP 98/58
[2016-10-06 01:45] VITALS: BP 94/57
[2016-10-06 05:02] LABS: BLOOD UREA NITROGEN 13 mg/dL (7-18)
[2016-10-06 05:06] LABS: ASPARTATE AMINO TRANSFERASE 17 U/L (15-37)
[2016-10-06] MEDS: NYSTATIN 500,000 UNITS/5 ML UDC PO SCH ×4 (05:35→20:07)
[2016-10-06] MEDS: DEXAMETHASONE OPHTH 0.1%, 5ML EACHEYE SCH ×4 (05:35→20:06)
[2016-10-06] MEDS: GABAPENTIN 100 MG CAPSULE PO SCH ×2 (05:35→18:36)
[2016-10-06] MEDS: SODIUM ACETATE 75 MEQ in SODIUM CHLORIDE 0.45% 1,000 ML IV SCH ×3 (05:35→22:02)
[2016-10-06 06:44] LABS: ANISOCYTOSIS 2+
[2016-10-06 08:24] VITALS: BP 106/70
[2016-10-06] MEDS: SERTRALINE 50MG TABLET PO SCH (09:08)
[2016-10-06] MEDS: FLUCONAZOLE 100 MG TABLET PO SCH (09:08)
[2016-10-06] MEDS: ACYCLOVIR 200 MG CAPSULE PO SCH ×2 (09:08→20:06)
[2016-10-06] MEDS: HEPARIN 25,000 UNITS/500ML PMX 500 ML IV PRN (10:54)
[2016-10-06] MEDS: ONDANSETRON 2MG/ML, 2ML IVPush PRN (11:51)
[2016-10-06 12:48] VITALS: BP 101/58
[2016-10-06] MEDS: IMATINIB 100 MG TABLET PO SCH (18:37)
[2016-10-06] MEDS: ALLOPURINOL 300 MG TABLET PO SCH (20:06)
[2016-10-06] MEDS: LORazepam 1MG TABLET PO PRN (20:14)
[2016-10-06 21:18] VITALS: BP 95/61
[2016-10-07 02:20] VITALS: BP 105/69
[2016-10-07] MEDS: NYSTATIN 500,000 UNITS/5 ML UDC PO SCH ×4 (05:03→21:17)
[2016-10-07] MEDS: DEXAMETHASONE OPHTH 0.1%, 5ML EACHEYE SCH ×4 (05:03→21:16)
[2016-10-07] MEDS: GABAPENTIN 100 MG CAPSULE PO SCH ×2 (05:03→17:17)
[2016-10-07] MEDS: SODIUM ACETATE 75 MEQ in SODIUM CHLORIDE 0.45% 1,000 ML IV SCH ×3 (06:04→22:25)
[2016-10-07] MEDS: HEPARIN 25,000 UNITS/500ML PMX 500 ML IV PRN (06:07)
[2016-10-07 06:10] LABS: ASPARTATE AMINO TRANSFERASE 21 U/L (15-37); BLOOD UREA NITROGEN 12 mg/dL (7-18)
[2016-10-07 06:26] LABS: ANISOCYTOSIS 1+
[2016-10-07 07:50] VITALS: BP 95/62
[2016-10-07] MEDS: ACYCLOVIR 200 MG CAPSULE PO SCH ×2 (09:26→21:17)
[2016-10-07] MEDS: SERTRALINE 50MG TABLET PO SCH (09:26)
[2016-10-07] MEDS: FLUCONAZOLE 100 MG TABLET PO SCH (09:27)
[2016-10-07] MEDS: TBO-FILGRASTIM 480 MCG/0.8 ML SQ SCH (12:55)
[2016-10-07] MEDS: POTASSIUM CHLORIDE 20 MEQ TAB.ER.PRT PO SCH ×2 (13:47→21:16)
[2016-10-07] MEDS: ONDANSETRON 2MG/ML, 2ML IVPush PRN (13:50)
[2016-10-07 16:20] VITALS: BP 105/68
[2016-10-07] MEDS: LORazepam 1MG TABLET PO PRN (16:29)
[2016-10-07] MEDS: IMATINIB 100 MG TABLET PO SCH (18:00)
[2016-10-07 19:18] VITALS: BP 104/63
[2016-10-07] MEDS: ALLOPURINOL 300 MG TABLET PO SCH (21:17)
[2016-10-08] MEDS: ZOLPIDEM 5MG TABLET PO PRN ×2 (00:19→22:03)
[2016-10-08 01:04] VITALS: BP 98/64
[2016-10-08] MEDS: HEPARIN 25,000 UNITS/500ML PMX 500 ML IV PRN ×2 (01:12→20:15)
[2016-10-08 04:32] LABS: ASPARTATE AMINO TRANSFERASE 16 U/L (15-37); BLOOD UREA NITROGEN 9 mg/dL (7-18)
[2016-10-08] MEDS: LORazepam 1MG TABLET PO PRN (04:40)
[2016-10-08 04:42] LABS: DIFF TOTAL CELLS COUNTED 100 CELL DIFF
[2016-10-08 04:44] LABS: ANISOCYTOSIS 1+; VERIFY COUNTS? YES
[2016-10-08] MEDS: GABAPENTIN 100 MG CAPSULE PO SCH ×2 (06:12→17:21)
[2016-10-08] MEDS: NYSTATIN 500,000 UNITS/5 ML UDC PO SCH ×4 (06:12→20:13)
[2016-10-08] MEDS: DEXAMETHASONE OPHTH 0.1%, 5ML EACHEYE SCH ×4 (06:12→20:13)
[2016-10-08 06:58] VITALS: BP 90/59
[2016-10-08] MEDS: SODIUM ACETATE 75 MEQ in SODIUM CHLORIDE 0.45% 1,000 ML IV SCH ×2 (08:52→17:21)
[2016-10-08] MEDS: FLUCONAZOLE 100 MG TABLET PO SCH (08:52)
[2016-10-08] MEDS: ACYCLOVIR 200 MG CAPSULE PO SCH ×2 (08:52→20:13)
[2016-10-08] MEDS: SERTRALINE 50MG TABLET PO SCH (08:52)
[2016-10-08] MEDS: POTASSIUM CHLORIDE 20 MEQ TAB.ER.PRT PO SCH ×2 (08:52→17:21)
[2016-10-08] MEDS: ONDANSETRON 2MG/ML, 2ML IVPush PRN ×2 (08:57→16:43)
[2016-10-08 09:24] VITALS: BP 101/69
[2016-10-08] MEDS: TBO-FILGRASTIM 480 MCG/0.8 ML SQ SCH (13:26)
[2016-10-08 13:39] VITALS: BP 114/79
[2016-10-08] MEDS: IMATINIB 100 MG TABLET PO SCH (17:21)
[2016-10-08] MEDS ORDERED: SERT50TA5 PO (18:32)
[2016-10-08] MEDS: OXYcodone/APAP 5/325MG TABLET PO PRN (20:13)
[2016-10-08] MEDS: ALLOPURINOL 300 MG TABLET PO SCH (20:13)
[2016-10-08 20:16] VITALS: BP 97/63
[2016-10-09] MEDS: SODIUM ACETATE 75 MEQ in SODIUM CHLORIDE 0.45% 1,000 ML IV SCH (00:59)
[2016-10-09 01:14] VITALS: BP 102/82
[2016-10-09] MEDS: DIPHENHYDRAMINE 50 MG CAPSULE PO PRN (01:18)
[2016-10-09] MEDS: GABAPENTIN 100 MG CAPSULE PO SCH ×2 (04:59→17:02)
[2016-10-09] MEDS: DEXAMETHASONE OPHTH 0.1%, 5ML EACHEYE SCH ×3 (04:59→17:02)
[2016-10-09] MEDS: NYSTATIN 500,000 UNITS/5 ML UDC PO SCH ×3 (04:59→17:03)
[2016-10-09 05:33] LABS: ASPARTATE AMINO TRANSFERASE 16 U/L (15-37); BLOOD UREA NITROGEN 10 mg/dL (7-18)
[2016-10-09 06:01] LABS: DIFF TOTAL CELLS COUNTED 100 CELL DIFF
[2016-10-09 06:04] LABS: ANISOCYTOSIS 1+; VERIFY COUNTS? YES
[2016-10-09 09:01] VITALS: BP 106/62
[2016-10-09] MEDS: POTASSIUM CHLORIDE 20 MEQ TAB.ER.PRT PO SCH (09:10)
[2016-10-09] MEDS: ACYCLOVIR 200 MG CAPSULE PO SCH (09:11)
[2016-10-09] MEDS: FLUCONAZOLE 100 MG TABLET PO SCH (09:11)
[2016-10-09] MEDS: SERTRALINE 50MG TABLET PO SCH (09:11)
[2016-10-09] MEDS ORDERED: CYTARABINE/PF 100 MG in SODIUM CHLORIDE 0.9% 4 ML IT ONE (10:00)
[2016-10-09] MEDS: ONDANSETRON 2MG/ML, 2ML IVPush PRN (13:41)
[2016-10-09 13:59] VITALS: BP 104/68
[2016-10-09] MEDS: IMATINIB 100 MG TABLET PO SCH (16:59)
[2016-10-09] MEDS: TBO-FILGRASTIM 480 MCG/0.8 ML SQ SCH (17:02)
== END 2016-10-09 18:40 | disposition home or self-care (01) | DRG 839 ==
LOC: 3NW 11:46
PROVIDERS: ADMIT Internal Medicine Hematology & Oncology; ATTEND Internal Medicine Hematology & Oncology
PROC: 009U3ZZ Drainage of Spinal Canal, Percutaneous Approach (ICD-10-PCS; principal; 2016-10-03)
PROC: B01B1ZZ Fluoroscopy of Spinal Cord using Low Osmolar Contrast (ICD-10-PCS; 2016-10-03)
PROC: 3E0R305 Introduction of Other Antineoplastic into Spinal Canal, Percutaneous Approach (ICD-10-PCS; 2016-10-03)
PROC: 009U3ZZ Drainage of Spinal Canal, Percutaneous Approach (ICD-10-PCS; 2016-10-09)
PROC: B01B1ZZ Fluoroscopy of Spinal Cord using Low Osmolar Contrast (ICD-10-PCS; 2016-10-09)
PROC: 3E0R305 Introduction of Other Antineoplastic into Spinal Canal, Percutaneous Approach (ICD-10-PCS; 2016-10-09)
DX: Z51.11 Encounter for antineoplastic chemotherapy (principal); C91.01 Acute lymphoblastic leukemia, in remission; F41.9 Anxiety disorder, unspecified; F32.9 Major depressive disorder, single episode, unspecified; D70.9 Neutropenia, unspecified; Z86.711 Personal history of pulmonary embolism; Z86.718 Personal history of other venous thrombosis and embolism; Z82.49 Family history of ischemic heart disease and other diseases of the circulatory system; Z83.3 Family history of diabetes mellitus; Z81.8 Family history of other mental and behavioral disorders
CPT/HCPCS: 36415; 62270; 80053; 80375; 81003; 85025; 85520; 85610; 85730; J0640; J1100; J1644; J2405; J3490; J7070; J9100; J9250; Q0164; G0480; J1447; J2930; J7030; J7040; J7050; S0028

== ENCOUNTER 2016-10-12 20:15 | Inpatient (IN) | payer MEDICAID ==
[~2016-10-12] VITALS: Ht 175.3 cm; Wt 82.1 kg
[2016-10-12] VITALS (9 sets, daily range): BP systolic 91–103; BP diastolic 44–58
[~2016-10-12 20:15] MED LIST changes: +SERT50TA5 PO
[2016-10-12] MEDS ORDERED: SODIUM CHLORIDE 0.9% 500 ML IV ONE (20:23)
[2016-10-12] MEDS ORDERED: SODIUM CHLORIDE 0.9% 1,000ML IVBOLUS ONE ×3 (20:30→22:30)
[2016-10-12] MEDS ORDERED: VANCOMYCIN 1,600 MG in SODIUM CHLORIDE 0.9% 250 ML IV ONE (21:00)
[2016-10-12] MEDS ORDERED: MORPHINE SULFATE 4 MG/ML, 1ML IVPush PRN (21:00)
[2016-10-12] MEDS ORDERED: SODIUM CHLORIDE FLUSH 10ML SYR IVF ONE (21:00)
[2016-10-12] MEDS ORDERED: ACETAMINOPHEN 325 MG TABLET PO ONE (21:00)
[2016-10-12] MEDS ORDERED: ONDANSETRON 2MG/ML, 2ML IVPush ONE (21:00)
[2016-10-12] MEDS ORDERED: PHARMACOKINETIC CONSULTATION MC ONE (21:00)
[2016-10-12] MEDS ORDERED: VANCOMYCIN PER PHARMACY MC PRN (21:00)
[2016-10-12] MEDS ORDERED: CEFEPIME 1 GM in DEXTROSE 5% 50 ML IV ONE (21:00)
[2016-10-12] MEDS ORDERED: ONDANSETRON 2MG/ML, 2ML ONE ×2 (21:12→23:14)
[2016-10-12] MEDS ORDERED: MORPHINE SULFATE 4 MG/ML, 1ML ONE (21:12)
[2016-10-12] MEDS ORDERED: ACETAMINOPHEN 325 MG TABLET ONE (21:12)
[2016-10-12] MEDS ORDERED: OXYC10TA6 PO (21:22)
[2016-10-12] MEDS ORDERED: LEVO500T33 PO (21:22)
[2016-10-12] MEDS ORDERED: ZOLP-413 PO (21:23)
[2016-10-12 21:28] LABS: ASPARTATE AMINO TRANSFERASE 15 U/L (15-37); BLOOD UREA NITROGEN 11 mg/dL (7-18)
[2016-10-12] MEDS ORDERED: LEVOFLOXACIN/PMX 750MG/150ML 150 ML IV ONE (21:30)
[2016-10-12 21:54] LABS: VERIFY COUNTS? YES
[2016-10-12 21:55] LABS: ANISOCYTOSIS 1+
[2016-10-12 21:57] LABS: DIFF TOTAL CELLS COUNTED 25 CELL DIFFERENTIAL
[2016-10-12] MEDS ORDERED: LEVOFLOXACIN/PMX 750MG/150ML 150 ML ONE (22:39)
[2016-10-13] VITALS (12 sets, daily range): BP systolic 91–121; BP diastolic 43–61
[2016-10-13] MEDS ORDERED: POLYETHYLENE GLYCOL 17 GM PACKET PO PRN
[2016-10-13] MEDS ORDERED: IMATINIB 100 MG TABLET PO SCH
[2016-10-13] MEDS ORDERED: PROCHLORPERAZINE 10MG TABLET PO PRN
[2016-10-13] MEDS ORDERED: ACETAMINOPHEN 325 MG TABLET PO PRN
[2016-10-13] MEDS ORDERED: morphine SULFATE 10 MG/ML, 1ML IVPush PRN
[2016-10-13] MEDS ORDERED: ONDANSETRON 2MG/ML, 2ML IVPush PRN
[2016-10-13] MEDS ORDERED: BISACODYL 10 MG SUPP PR PRN
[2016-10-13] MEDS ORDERED: VANCOMYCIN PER PHARMACY MC PRN (00:30)
[2016-10-13] MEDS ORDERED: VANCOMYCIN PMX 1GM/200ML 200 ML IV ONE (00:30)
[2016-10-13] MEDS: CEFEPIME 1 GM in DEXTROSE 5% 50 ML IV SCH ×3 (00:32→20:30)
[2016-10-13] MEDS ORDERED: PHARMACOKINETIC MONITORING MC PRN (02:00)
[2016-10-13] MEDS ORDERED: MAGNESIUM SULFATE PMX 2GM/50ML 50 ML IV ONE (02:00)
[2016-10-13] MEDS: SODIUM CHLORIDE 0.9% 1,000 ML IV SCH ×2 (02:18→17:16)
[2016-10-13] MEDS: OXYcodone IR 5MG TABLET PO PRN ×2 (04:51→09:33)
[2016-10-13] MEDS ORDERED: OMNIPAQUE 350 MG/ML, 100ML BOTTLE ONE (06:13)
[2016-10-13 06:14] LABS: ASPARTATE AMINO TRANSFERASE 16 U/L (15-37); BLOOD UREA NITROGEN 7 mg/dL (7-18)
[2016-10-13 08:09] LABS: DIFF TOTAL CELLS COUNTED 100 CELL DIFF
[2016-10-13 08:21] LABS: ANISOCYTOSIS 1+
[2016-10-13] MEDS ORDERED: SERTRALINE 50MG TABLET PO SCH (09:00)
[2016-10-13] MEDS ORDERED: TBO-FILGRASTIM 480 MCG/0.8 ML SQ SCH (09:00)
[2016-10-13 09:11] LABS: VERIFY COUNTS? YES
[2016-10-13] MEDS: GABAPENTIN 100 MG CAPSULE PO SCH ×2 (09:33→20:31)
[2016-10-13] MEDS: SENNA/DOCUSATE TABLET PO SCH (09:33)
[2016-10-13] MEDS: VANCOMYCIN 1,600 MG in SODIUM CHLORIDE 0.9% 250 ML IV SCH ×2 (10:25→21:31)
[2016-10-14] MEDS: OXYcodone IR 5MG TABLET PO PRN ×2 (01:25→08:07)
[2016-10-14 04:50] LABS: BLOOD UREA NITROGEN 5 mg/dL (7-18)
[2016-10-14 04:53] LABS: ASPARTATE AMINO TRANSFERASE 15 U/L (15-37)
[2016-10-14 05:38] LABS: DIFF TOTAL CELLS COUNTED 50 CELL DIFFERENTIAL
[2016-10-14 05:45] LABS: ANISOCYTOSIS 1+; VERIFY COUNTS? YES
[2016-10-14] MEDS: CEFEPIME 1 GM in DEXTROSE 5% 50 ML IV SCH ×2 (08:06→21:49)
[2016-10-14] MEDS: GABAPENTIN 100 MG CAPSULE PO SCH ×2 (08:07→21:25)
[2016-10-14] MEDS: SENNA/DOCUSATE TABLET PO SCH (09:00)
[2016-10-14] MEDS ORDERED: TBO-FILGRASTIM 480 MCG/0.8 ML SQ ONE (09:00)
[2016-10-14] MEDS ORDERED: PHENOL THROAT SPRAY BOTTLE MM PRN (09:30)
[2016-10-14] MEDS: VANCOMYCIN 1,600 MG in SODIUM CHLORIDE 0.9% 250 ML IV SCH (10:24)
[2016-10-14] MEDS: NYSTATIN 500,000 UNITS/5 ML UDC PO SCH ×3 (10:24→21:25)
[2016-10-14] MEDS ORDERED: OMNIPAQUE 350 MG/ML, 100ML BOTTLE ONE (18:18)
[2016-10-14] MEDS: VANCOMYCIN 1,500 MG in SODIUM CHLORIDE 0.9% 250 ML IV SCH (18:40)
[2016-10-14] MEDS ORDERED: SODIUM CHLORIDE 0.9% 1,000 ML IV SCH (19:00)
[2016-10-14 19:51] VITALS: BP 110/69
[2016-10-14] MEDS ORDERED: CATHFLO-ALTEPLASE 2 MG/2 ML CATHFLUSH ONE (20:00)
[2016-10-14] MEDS: ZOLPIDEM 5MG TABLET PO PRN (21:49)
[2016-10-15] MEDS: VANCOMYCIN 1,500 MG in SODIUM CHLORIDE 0.9% 250 ML IV SCH ×4 (01:01→16:39)
[2016-10-15 04:31] VITALS: BP 111/68
[2016-10-15 04:52] LABS: ASPARTATE AMINO TRANSFERASE 16 U/L (15-37); BLOOD UREA NITROGEN 5 mg/dL (7-18)
[2016-10-15 05:44] LABS: DIFF TOTAL CELLS COUNTED 50 CELL DIFFERENTIAL; VERIFY COUNTS? YES
[2016-10-15 05:45] LABS: ANISOCYTOSIS 1+
[2016-10-15 08:05] VITALS: BP 108/66
[2016-10-15] MEDS: NYSTATIN 500,000 UNITS/5 ML UDC PO SCH ×4 (08:35→20:28)
[2016-10-15] MEDS: CEFEPIME 1 GM in DEXTROSE 5% 50 ML IV SCH ×2 (08:36→20:28)
[2016-10-15] MEDS: GABAPENTIN 100 MG CAPSULE PO SCH ×2 (08:36→20:28)
[2016-10-15] MEDS: SENNA/DOCUSATE TABLET PO SCH (09:00)
[2016-10-15] MEDS: OXYcodone IR 5MG TABLET PO PRN ×3 (10:23→22:33)
[2016-10-15] MEDS: TBO-FILGRASTIM 480 MCG/0.8 ML SQ SCH (10:58)
[2016-10-15 16:26] VITALS: BP 106/68
[2016-10-15 20:09] VITALS: BP 121/70
[2016-10-15] MEDS: HYDROCORTISONE 25 MG SUPP PR SCH (20:29)
[2016-10-15] MEDS: ZOLPIDEM 5MG TABLET PO PRN (22:33)
[2016-10-16] VITALS (7 sets, daily range): BP systolic 109–116; BP diastolic 62–76
[2016-10-16] MEDS: VANCOMYCIN 1,500 MG in SODIUM CHLORIDE 0.9% 250 ML IV SCH (00:40)
[2016-10-16] MEDS: OXYcodone IR 5MG TABLET PO PRN ×3 (02:20→19:57)
[2016-10-16] MEDS: NYSTATIN 500,000 UNITS/5 ML UDC PO SCH ×4 (05:31→21:24)
[2016-10-16 06:10] LABS: BLOOD UREA NITROGEN 5 mg/dL (7-18)
[2016-10-16 06:16] LABS: ASPARTATE AMINO TRANSFERASE 20 U/L (15-37)
[2016-10-16 06:18] LABS: DIFF TOTAL CELLS COUNTED 100 CELL DIFF
[2016-10-16 06:21] LABS: ANISOCYTOSIS 1+; VERIFY COUNTS? YES
[2016-10-16] MEDS: GABAPENTIN 100 MG CAPSULE PO SCH ×2 (08:34→21:24)
[2016-10-16] MEDS: SENNA/DOCUSATE TABLET PO SCH (08:34)
[2016-10-16] MEDS: HYDROCORTISONE 25 MG SUPP PR SCH ×2 (08:35→21:24)
[2016-10-16] MEDS: TBO-FILGRASTIM 480 MCG/0.8 ML SQ SCH (09:37)
[2016-10-16] MEDS: ENOXAPARIN 80 MG/0.8 ML SQ SCH ×2 (09:37→21:24)
[2016-10-16] MEDS ORDERED: HYDROCORTISONE 100 MG INJ. IVPush ONE (11:00)
[2016-10-16] MEDS: OFLOXACIN OPHTH 0.3%, 5ML EACHEYE SCH ×2 (17:14→21:24)
[2016-10-16] MEDS: ZOLPIDEM 5MG TABLET PO PRN ×2 (21:25→23:14)
[2016-10-17] MEDS: OFLOXACIN OPHTH 0.3%, 5ML EACHEYE SCH ×6 (01:00→19:58)
[2016-10-17 03:00] VITALS: BP 100/66
[2016-10-17] MEDS: NYSTATIN 500,000 UNITS/5 ML UDC PO SCH ×4 (05:16→19:58)
[2016-10-17 06:06] LABS: ASPARTATE AMINO TRANSFERASE 16 U/L (15-37); BLOOD UREA NITROGEN 6 mg/dL (7-18)
[2016-10-17 06:16] LABS: DIFF TOTAL CELLS COUNTED 100 CELL DIFF
[2016-10-17 06:18] LABS: ANISOCYTOSIS 1+; VERIFY COUNTS? YES
[2016-10-17 06:24] LABS: SPHEROCYTES 1+
[2016-10-17 07:29] VITALS: BP 102/70
[2016-10-17] MEDS: SENNA/DOCUSATE TABLET PO SCH (09:00)
[2016-10-17] MEDS: GABAPENTIN 100 MG CAPSULE PO SCH ×2 (09:06→19:58)
[2016-10-17] MEDS: HYDROCORTISONE 25 MG SUPP PR SCH ×2 (09:06→19:58)
[2016-10-17] MEDS: ENOXAPARIN 80 MG/0.8 ML SQ SCH ×2 (09:07→19:59)
[2016-10-17] MEDS: TBO-FILGRASTIM 480 MCG/0.8 ML SQ SCH (10:37)
[2016-10-17] MEDS: OXYcodone IR 5MG TABLET PO PRN ×2 (12:13→19:59)
[2016-10-17 14:00] VITALS: BP 106/71
[2016-10-17 19:21] VITALS: BP 111/67
[2016-10-19 07:06] LABS: PROTEIN S FREE 81 % (57-157); PROTEIN S TOTAL 105 % (60-150)
== END 2016-10-17 21:55 | disposition home or self-care (01) | DRG 872 ==
LOC: ED 20:52 → EDIP 22:28 → CCU 10-13 01:23 → 3NW 10-14 16:00
PROVIDERS: ADMIT Internal Medicine; ATTEND Internal Medicine
PROC: 30233L1 Transfusion of Nonautologous Fresh Plasma into Peripheral Vein, Percutaneous Approach (ICD-10-PCS; principal; 2016-10-12)
PROC: 30233N1 Transfusion of Nonautologous Red Blood Cells into Peripheral Vein, Percutaneous Approach (ICD-10-PCS; 2016-10-12)
PROC: 30233R1 Transfusion of Nonautologous Platelets into Peripheral Vein, Percutaneous Approach (ICD-10-PCS; 2016-10-12)
PROC: 30233K1 Transfusion of Nonautologous Frozen Plasma into Peripheral Vein, Percutaneous Approach (ICD-10-PCS; 2016-10-12)
DX: A41.9 Sepsis, unspecified organism (principal); C91.01 Acute lymphoblastic leukemia, in remission; D61.818 Other pancytopenia; D62 Acute posthemorrhagic anemia; K59.00 Constipation, unspecified; F32.9 Major depressive disorder, single episode, unspecified; F41.9 Anxiety disorder, unspecified; T45.1X5A Adverse effect of antineoplastic and immunosuppressive drugs, initial encounter; K64.9 Unspecified hemorrhoids; Z86.711 Personal history of pulmonary embolism; Z86.718 Personal history of other venous thrombosis and embolism; Z79.01 Long term (current) use of anticoagulants; Z79.899 Other long term (current) drug therapy; Z87.891 Personal history of nicotine dependence; Z83.3 Family history of diabetes mellitus; Z82.49 Family history of ischemic heart disease and other diseases of the circulatory system
CPT/HCPCS: 36415; 71010; 71020; 71275; 74174; 80053; 80061; 80202; 81003; 81240; 81241; 83036; 83605; 83735; 84145; 84439; 84443; 85014; 85018; 85025; 85300; 85302; 85303; 85305; 85306; 85610; 85730; 86850; 86900; 86923; 87040; 87081; 87324; 89055; 93970; 96365; 96366; 96368; 96375; J0692; J1650; J1956; J2405; J2997; J3370; Q9967; J1447; J1720; J3475; J7030; J7040; J7050; P9017; P9037; P9040

== ENCOUNTER 2016-10-23 07:51 | Inpatient (IN) | payer SELFPAY ==
[~2016-10-23] VITALS: Ht 175.3 cm; Wt 81.6 kg
[~2016-10-23 07:51] MED LIST changes: +LEVO500T33 PO; +OXYC10TA6 PO; +ZOLP-413 PO
[2016-10-23 08:35] VITALS: BP 118/74
[2016-10-23 09:48] LABS: ASPARTATE AMINO TRANSFERASE 28 U/L (15-37); BLOOD UREA NITROGEN 6 mg/dL (7-18)
[2016-10-23] MEDS ORDERED: HEPARIN 5,000 UNITS/ML, 1ML IV ONE (10:00)
[2016-10-23 10:47] LABS: DIFF TOTAL CELLS COUNTED 100 CELL DIFF
[2016-10-23 10:53] LABS: ANISOCYTOSIS 1+; POLYCHROMASIA 2+; VERIFY COUNTS? YES
[2016-10-23 10:55] LABS: MONOS WITH VACUOLES 1+
[2016-10-23] MEDS ORDERED: FOSAPREPITANT 150 MG in SODIUM CHLORIDE 0.9% 145 ML IV ONE (11:30)
[2016-10-23] MEDS ORDERED: DIPHENHYDRAMINE 50 MG/ML, 1ML IVPush ONE (11:30)
[2016-10-23] MEDS ORDERED: MESNA IVPB SCH (12:30)
[2016-10-23] MEDS ORDERED: IMATINIB 100 MG TABLET PO SCH (12:30)
[2016-10-23] MEDS ORDERED: SODIUM CHLORIDE 0.9% IVPB SCH (12:30)
[2016-10-23] MEDS: ONDANSETRON 16 MG, DEXAMETHASONE 12 MG in SODIUM CHLORIDE 0.9% 50 ML IVPB SCH (12:50)
[2016-10-23] MEDS: FAMOTIDINE 20 MG/2 ML IVPush SCH (12:51)
[2016-10-23] MEDS: SODIUM CHLORIDE 0.9% IVPB SCH (14:02)
[2016-10-23] MEDS: MESNA IVPB SCH (14:02)
[2016-10-23] MEDS: HEPARIN 25,000 UNITS/500ML PMX 500 ML IV PRN (14:23)
[2016-10-23 14:57] VITALS: BP 100/63
[2016-10-23] MEDS: SODIUM CHLORIDE 0.9% IV SCH (15:42)
[2016-10-23] MEDS: CYCLOPHOSPHAMIDE IV SCH (15:42)
[2016-10-23 20:12] VITALS: BP 116/68
[2016-10-23] MEDS: HEPARIN 5,000 UNITS/ML, 1ML IV PRN (22:33)
[2016-10-23] MEDS: ZOLPIDEM 5MG TABLET PO PRN (23:15)
[2016-10-24] VITALS (10 sets, daily range): BP systolic 94–105; BP diastolic 52–65
[2016-10-24] MEDS: SODIUM CHLORIDE 0.9% IV SCH ×2 (03:38→17:08)
[2016-10-24] MEDS: CYCLOPHOSPHAMIDE IV SCH ×2 (03:38→17:08)
[2016-10-24 05:28] LABS: ASPARTATE AMINO TRANSFERASE 21 U/L (15-37); BLOOD UREA NITROGEN 6 mg/dL (7-18)
[2016-10-24] MEDS ORDERED: DIPHENHYDRAMINE 25 MG CAPSULE PO ONE (06:00)
[2016-10-24] MEDS ORDERED: ACETAMINOPHEN 325 MG TABLET PO ONE (06:00)
[2016-10-24] MEDS ORDERED: METHOTREXATE/PF 2ML 12 MG in SODIUM CHLORIDE 0.9% 4.52 ML IT ONE ×2 (09:00→10:00)
[2016-10-24] MEDS: MESNA IVPB SCH (15:00)
[2016-10-24] MEDS: SODIUM CHLORIDE 0.9% IVPB SCH (15:00)
[2016-10-24] MEDS: ONDANSETRON 16 MG, DEXAMETHASONE 12 MG in SODIUM CHLORIDE 0.9% 50 ML IVPB SCH (15:00)
[2016-10-24] MEDS: FAMOTIDINE 20 MG/2 ML IVPush SCH (15:04)
[2016-10-24] MEDS: IMATINIB 100 MG TABLET PO SCH (17:09)
[2016-10-24] MEDS: OXYcodone IR 5MG TABLET PO PRN (18:18)
[2016-10-24] MEDS: ZOLPIDEM 5MG TABLET PO PRN (21:03)
[2016-10-25 02:14] VITALS: BP 107/64
[2016-10-25] MEDS: HEPARIN 25,000 UNITS/500ML PMX 500 ML IV PRN (04:55)
[2016-10-25] MEDS: CYCLOPHOSPHAMIDE IV SCH ×2 (04:57→17:17)
[2016-10-25] MEDS: SODIUM CHLORIDE 0.9% IV SCH ×2 (04:57→17:17)
[2016-10-25 07:59] VITALS: BP 113/68
[2016-10-25] MEDS: SERTRALINE 50MG TABLET PO SCH (08:02)
[2016-10-25] MEDS: ACYCLOVIR 200 MG CAPSULE PO SCH (08:02)
[2016-10-25] MEDS ORDERED: ONDANSETRON 8 MG TABLET PO PRN (10:00)
[2016-10-25] MEDS ORDERED: PROCHLORPERAZINE 5 MG/ML, 2ML IVPush PRN (10:00)
[2016-10-25] MEDS ORDERED: PROCHLORPERAZINE 25 MG SUPP PR PRN (10:00)
[2016-10-25] MEDS: ONDANSETRON 16 MG, DEXAMETHASONE 12 MG in SODIUM CHLORIDE 0.9% 50 ML IVPB SCH (10:12)
[2016-10-25] MEDS: FAMOTIDINE 20 MG/2 ML IVPush SCH (12:29)
[2016-10-25 14:43] VITALS: BP 108/59
[2016-10-25] MEDS: SODIUM CHLORIDE 0.9% IVPB SCH (15:19)
[2016-10-25] MEDS: IMATINIB 100 MG TABLET PO SCH (15:19)
[2016-10-25] MEDS: MESNA IVPB SCH (15:19)
[2016-10-25 15:54] LABS: BLOOD UREA NITROGEN 8 mg/dL (7-18)
[2016-10-25 15:59] LABS: ASPARTATE AMINO TRANSFERASE 21 U/L (15-37)
[2016-10-25 17:08] LABS: DIFF TOTAL CELLS COUNTED 100 CELL DIFF
[2016-10-25 17:11] LABS: VERIFY COUNTS? YES
[2016-10-25 17:13] LABS: SPHEROCYTES 1+
[2016-10-25 17:15] LABS: POLYCHROMASIA 2+
[2016-10-25] MEDS: OXYcodone IR 5MG TABLET PO PRN (17:20)
[2016-10-25 19:16] VITALS: BP 106/62
[2016-10-25] MEDS: ZOLPIDEM 5MG TABLET PO PRN (23:39)
[2016-10-26 02:30] VITALS: BP 105/74
[2016-10-26] MEDS: HEPARIN 25,000 UNITS/500ML PMX 500 ML IV PRN (02:44)
[2016-10-26] MEDS: ZOLPIDEM 5MG TABLET PO PRN ×2 (02:46→21:13)
[2016-10-26] MEDS: SODIUM CHLORIDE 0.9% IV SCH (05:05)
[2016-10-26] MEDS: CYCLOPHOSPHAMIDE IV SCH (05:05)
[2016-10-26 05:08] LABS: ASPARTATE AMINO TRANSFERASE 17 U/L (15-37); BLOOD UREA NITROGEN 7 mg/dL (7-18)
[2016-10-26 06:29] VITALS: BP 108/64
[2016-10-26] MEDS: ACYCLOVIR 200 MG CAPSULE PO SCH (08:55)
[2016-10-26] MEDS: SERTRALINE 50MG TABLET PO SCH (08:55)
[2016-10-26] MEDS ORDERED: ONDANSETRON 16 MG, DEXAMETHASONE 12 MG in SODIUM CHLORIDE 0.9% 50 ML IVPB ONE (10:00)
[2016-10-26] MEDS: FAMOTIDINE 20 MG/2 ML IVPush SCH (10:30)
[2016-10-26] MEDS ORDERED: VINCRISTINE IV ONE (10:30)
[2016-10-26] MEDS ORDERED: SODIUM CHLORIDE 0.9% IV ONE ×2 (10:30→11:00)
[2016-10-26] MEDS ORDERED: DOXORUBICIN IV ONE (11:00)
[2016-10-26] MEDS: PROMETHAZINE 25MG TABLET PO PRN ×2 (11:25→18:03)
[2016-10-26] MEDS: SODIUM CHLORIDE 0.9% IVPB SCH (12:30)
[2016-10-26] MEDS: MESNA IVPB SCH (12:30)
[2016-10-26 12:51] VITALS: BP 103/63
[2016-10-26] MEDS: IMATINIB 100 MG TABLET PO SCH (15:25)
[2016-10-26] MEDS ORDERED: LORazepam 2 MG/ML, 1ML IVPush PRN (17:00)
[2016-10-26] MEDS: LORazepam 1MG TABLET PO PRN (17:05)
[2016-10-26 19:18] VITALS: BP 93/57
[2016-10-26] MEDS: ONDANSETRON 2MG/ML, 2ML IVPush PRN (19:56)
[2016-10-26 20:36] LABS: ASPARTATE AMINO TRANSFERASE 24 U/L (15-37); BLOOD UREA NITROGEN 8 mg/dL (7-18)
[2016-10-27] MEDS: HEPARIN 25,000 UNITS/500ML PMX 500 ML IV PRN ×2 (00:26→21:35)
[2016-10-27 02:00] VITALS: BP 101/61
[2016-10-27 05:18] LABS: ASPARTATE AMINO TRANSFERASE 23 U/L (15-37); BLOOD UREA NITROGEN 9 mg/dL (7-18)
[2016-10-27 05:56] LABS: DIFF TOTAL CELLS COUNTED 100 CELL DIFF
[2016-10-27 05:58] LABS: VERIFY COUNTS? YES
[2016-10-27 05:59] LABS: ANISOCYTOSIS 1+
[2016-10-27 07:07] VITALS: BP 103/59
[2016-10-27] MEDS: SERTRALINE 50MG TABLET PO SCH (08:57)
[2016-10-27] MEDS: OMEPRAZOLE 20 MG CAPSULE.DR PO SCH (08:57)
[2016-10-27] MEDS: ACYCLOVIR 200 MG CAPSULE PO SCH (08:57)
[2016-10-27] MEDS: ONDANSETRON 2MG/ML, 2ML IVPush PRN (12:56)
[2016-10-27 13:00] VITALS: BP 101/58
[2016-10-27] MEDS: IMATINIB 100 MG TABLET PO SCH (15:00)
[2016-10-27 19:45] VITALS: BP 109/71
[2016-10-27] MEDS: ZOLPIDEM 5MG TABLET PO PRN (21:22)
[2016-10-28] MEDS: LORazepam 1MG TABLET PO PRN (00:48)
[2016-10-28 05:10] VITALS: BP 117/76
[2016-10-28 05:53] LABS: DIFF TOTAL CELLS COUNTED 100 CELL DIFF
[2016-10-28 05:58] LABS: ANISOCYTOSIS 1+; VERIFY COUNTS? YES
[2016-10-28 05:59] LABS: ASPARTATE AMINO TRANSFERASE 17 U/L (15-37); BLOOD UREA NITROGEN 8 mg/dL (7-18)
[2016-10-28 08:43] VITALS: BP 102/66
[2016-10-28] MEDS: SERTRALINE 50MG TABLET PO SCH (08:45)
[2016-10-28] MEDS: OMEPRAZOLE 20 MG CAPSULE.DR PO SCH (08:46)
[2016-10-28] MEDS: ACYCLOVIR 200 MG CAPSULE PO SCH (08:46)
[2016-10-28] MEDS: PROCHLORPERAZINE 10MG TABLET PO PRN (11:50)
[2016-10-28 12:59] VITALS: BP 101/66
[2016-10-28] MEDS: IMATINIB 100 MG TABLET PO SCH (15:00)
[2016-10-28] MEDS: ONDANSETRON 2MG/ML, 2ML IVPush PRN (15:37)
[2016-10-28] MEDS: HEPARIN 25,000 UNITS/500ML PMX 500 ML IV PRN (16:42)
[2016-10-28 18:50] VITALS: BP 104/67
[2016-10-28] MEDS: OXYcodone IR 5MG TABLET PO PRN (19:43)
[2016-10-28] MEDS: ZOLPIDEM 5MG TABLET PO PRN (22:05)
[2016-10-29 00:15] VITALS: BP 100/64
[2016-10-29] MEDS: LORazepam 1MG TABLET PO PRN (03:15)
[2016-10-29 03:41] LABS: BLOOD UREA NITROGEN 9 mg/dL (7-18)
[2016-10-29 03:45] LABS: ASPARTATE AMINO TRANSFERASE 17 U/L (15-37)
[2016-10-29 04:18] LABS: DIFF TOTAL CELLS COUNTED 100 CELL DIFF
[2016-10-29 04:21] LABS: ANISOCYTOSIS 1+; VERIFY COUNTS? YES
[2016-10-29] MEDS: HEPARIN 5,000 UNITS/ML, 1ML IV PRN (04:37)
[2016-10-29 07:40] VITALS: BP 106/67
[2016-10-29] MEDS: OMEPRAZOLE 20 MG CAPSULE.DR PO SCH (08:11)
[2016-10-29] MEDS: ACYCLOVIR 200 MG CAPSULE PO SCH (08:11)
[2016-10-29] MEDS: SERTRALINE 50MG TABLET PO SCH (08:11)
[2016-10-29] MEDS: ONDANSETRON 2MG/ML, 2ML IVPush PRN (13:18)
[2016-10-29 13:25] VITALS: BP 109/68
[2016-10-29] MEDS: HEPARIN 25,000 UNITS/500ML PMX 500 ML IV PRN (13:31)
[2016-10-29] MEDS: OXYcodone IR 5MG TABLET PO PRN (15:07)
[2016-10-29] MEDS: IMATINIB 100 MG TABLET PO SCH (17:06)
[2016-10-29] MEDS ORDERED: CATHFLO-ALTEPLASE 2 MG/2 ML CATHFLUSH STA (17:58)
[2016-10-29 18:44] VITALS: BP 119/78
[2016-10-29] MEDS: ZOLPIDEM 5MG TABLET PO PRN (21:42)
[2016-10-30 01:30] VITALS: BP 101/68
[2016-10-30 01:59] LABS: ASPARTATE AMINO TRANSFERASE 18 U/L (15-37); BLOOD UREA NITROGEN 7 mg/dL (7-18)
[2016-10-30 02:32] LABS: DIFF TOTAL CELLS COUNTED 100 CELL DIFF
[2016-10-30 02:34] LABS: ANISOCYTOSIS 1+; LARGE PLATELETS 1+; VERIFY COUNTS? YES
[2016-10-30] MEDS: OMEPRAZOLE 20 MG CAPSULE.DR PO SCH (07:04)
[2016-10-30 08:24] VITALS: BP 99/68
[2016-10-30] MEDS: OXYcodone IR 5MG TABLET PO PRN ×2 (09:22→15:22)
[2016-10-30] MEDS: SERTRALINE 50MG TABLET PO SCH (10:02)
[2016-10-30] MEDS: ACYCLOVIR 200 MG CAPSULE PO SCH (10:02)
[2016-10-30] MEDS: PROCHLORPERAZINE 10MG TABLET PO PRN (10:21)
[2016-10-30] MEDS ORDERED: SODIUM CHLORIDE 0.9% IT ONE (10:30)
[2016-10-30] MEDS ORDERED: CYTARABINE IT ONE (10:30)
[2016-10-30] MEDS ORDERED: LIDOCAINE 1%, 20ML ONE (10:47)
[2016-10-30] MEDS ORDERED: TBO-FILGRASTIM 480 MCG/0.8 ML SQ SCH (12:00)
[2016-10-30 13:02] VITALS: BP 102/68
[2016-10-30] MEDS: IMATINIB 100 MG TABLET PO SCH (14:57)
[2016-11-02] MEDS ORDERED: DEXAMETHASONE 4 MG TABLET PO SCH (09:00)
[2016-11-02] MEDS ORDERED: VINCRISTINE IV ONE (10:30)
[2016-11-02] MEDS ORDERED: SODIUM CHLORIDE 0.9% IV ONE (10:30)
== END 2016-10-30 16:17 | disposition home or self-care (01) | DRG 839 ==
LOC: 3NW 07:51
PROVIDERS: ADMIT Internal Medicine Hematology & Oncology; ATTEND Internal Medicine Hematology & Oncology
PROC: 3E0R305 Introduction of Other Antineoplastic into Spinal Canal, Percutaneous Approach (ICD-10-PCS; principal; 2016-10-24)
PROC: 3E0R305 Introduction of Other Antineoplastic into Spinal Canal, Percutaneous Approach (ICD-10-PCS; 2016-10-30)
DX: Z51.12 Encounter for antineoplastic immunotherapy (principal); C91.00 Acute lymphoblastic leukemia not having achieved remission; F41.9 Anxiety disorder, unspecified; F32.9 Major depressive disorder, single episode, unspecified; D64.9 Anemia, unspecified; K21.9 Gastro-esophageal reflux disease without esophagitis; Z87.891 Personal history of nicotine dependence; Z86.711 Personal history of pulmonary embolism; Z86.718 Personal history of other venous thrombosis and embolism
CPT/HCPCS: 36415; 62270; 80053; 83735; 85025; 85520; 86850; 86900; 86923; J1100; J1453; J1644; J2405; J2997; J3490; J9070; J9100; J9209; J9250; J9370; Q0162; Q0164; Q0169; J1200; J1447; J7030; J7050; J9000; P9040; Q0163; S0028

== ENCOUNTER → 2016-11-16 | Outpatient (CLI) | payer MEDICAID | END | disposition home or self-care (01) | LOC: CFH 11:48 | PROVIDERS: ATTEND Internal Medicine Hematology & Oncology | DX: R91.8 Other nonspecific abnormal finding of lung field (principal); C83.39 Diffuse large B-cell lymphoma, extranodal and solid organ sites | CPT/HCPCS: 71020 ==

== ENCOUNTER 2016-11-19 08:00 | Inpatient (IN) | payer MEDICAID ==
[~2016-11-19] VITALS: Ht 175.3 cm; Wt 85.6 kg
[~2016-11-19 08:00] MED LIST changes: -LEVO500T33 PO; +LEVO500T47 PO
[2016-11-19 08:51] VITALS: BP 118/74
[2016-11-19] MEDS ORDERED: D5 IV SCH (09:30)
[2016-11-19] MEDS ORDERED: NACL IV SCH (09:30)
[2016-11-19] MEDS ORDERED: HEPARIN 25,000 UNITS/500ML PMX 500 ML IV PRN (09:30)
[2016-11-19] MEDS ORDERED: SODIUM ACETATE IV SCH (09:30)
[2016-11-19 09:39] LABS: HEMATOCRIT 29.1 % (39.2-51.8); HEMOGLOBIN 9.7 g/dL (13.7-18.0); WHITE BLOOD COUNT 5.9 x10^3/uL (3.4-10)
[2016-11-19] MEDS: NACL IV SCH ×2 (09:51→16:25)
[2016-11-19] MEDS: SODIUM ACETATE IV SCH ×2 (09:51→16:25)
[2016-11-19] MEDS: D5 IV SCH ×2 (09:51→16:25)
[2016-11-19 10:11] LABS: BLOOD UREA NITROGEN 6 mg/dL (7-18)
[2016-11-19 10:19] LABS: ASPARTATE AMINO TRANSFERASE 42 U/L (15-37)
[2016-11-19] MEDS: DEXAMETHASONE OPHTH 0.1%, 5ML EACHEYE SCH ×3 (11:00→21:46)
[2016-11-19] MEDS ORDERED: FAMOTIDINE 20 MG/2 ML IVPush ONE (11:30)
[2016-11-19] MEDS ORDERED: HEPARIN wt. based STROKE protocol MC SCH (11:30)
[2016-11-19] MEDS: methylPREDNISolone SOD SUCC 125 MG/2 ML IVPush SCH ×2 (11:41→22:41)
[2016-11-19] MEDS: ONDANSETRON 16 MG, DEXAMETHASONE 12 MG in SODIUM CHLORIDE 0.9% 50 ML IVPB SCH (11:41)
[2016-11-19] MEDS ORDERED: SODIUM CHLORIDE 0.9% IV ONE ×2 (12:00→14:00)
[2016-11-19] MEDS ORDERED: METHOTREXATE IV ONE ×2 (12:00→14:00)
[2016-11-19] MEDS: HEPARIN 25,000 UNITS/500ML PMX 500 ML IV PRN (12:01)
[2016-11-19 14:26] VITALS: BP 95/59
[2016-11-19] MEDS: IMATINIB 400 MG TABLET PO SCH (16:55)
[2016-11-19] MEDS ORDERED: LORazepam 1MG TABLET PO PRN (17:30)
[2016-11-19] MEDS ORDERED: ONDANSETRON 2MG/ML, 2ML IVPush PRN (17:30)
[2016-11-19] MEDS ORDERED: POLYETHYLENE GLYCOL 17 GM PACKET PO PRN (17:30)
[2016-11-19] MEDS ORDERED: ONDANSETRON 8 MG TABLET PO PRN (17:30)
[2016-11-19] MEDS ORDERED: BISACODYL 5 MG EC TABLET PO PRN (17:30)
[2016-11-19] MEDS ORDERED: LORazepam 2 MG/ML, 1ML IVPush PRN (17:30)
[2016-11-19 19:41] VITALS: BP 121/75
[2016-11-19] MEDS: SENNA/DOCUSATE TABLET PO SCH (21:46)
[2016-11-19] MEDS: ZOLPIDEM 5MG TABLET PO PRN (21:46)
[2016-11-20 02:40] VITALS: BP 99/58
[2016-11-20 03:03] LABS: HEMATOCRIT 29.3 % (39.2-51.8); HEMOGLOBIN 9.6 g/dL (13.7-18.0); WHITE BLOOD COUNT 2.9 x10^3/uL (3.4-10)
[2016-11-20 03:05] LABS: ASPARTATE AMINO TRANSFERASE 26 U/L (15-37); BLOOD UREA NITROGEN 7 mg/dL (7-18)
[2016-11-20] MEDS: D5 IV SCH ×3 (04:23→18:27)
[2016-11-20] MEDS: NACL IV SCH ×3 (04:23→18:27)
[2016-11-20] MEDS: SODIUM ACETATE IV SCH ×3 (04:23→18:27)
[2016-11-20] MEDS: DEXAMETHASONE OPHTH 0.1%, 5ML EACHEYE SCH ×4 (05:54→20:53)
[2016-11-20 08:00] VITALS: BP 105/63
[2016-11-20] MEDS: ONDANSETRON 8 MG TABLET PO PRN (08:27)
[2016-11-20] MEDS: SENNA/DOCUSATE TABLET PO SCH ×2 (08:27→20:53)
[2016-11-20] MEDS ORDERED: METHOTREXATE/PF 2ML 12 MG in SODIUM CHLORIDE 0.9% 4.52 ML IT ONE (10:00)
[2016-11-20] MEDS: SERTRALINE 50MG TABLET PO SCH (10:13)
[2016-11-20] MEDS: OXYcodone IR 5MG TABLET PO PRN ×2 (10:15→15:26)
[2016-11-20] MEDS: methylPREDNISolone SOD SUCC 125 MG/2 ML IVPush SCH ×2 (11:39→22:53)
[2016-11-20] MEDS: ONDANSETRON 16 MG, DEXAMETHASONE 12 MG in SODIUM CHLORIDE 0.9% 50 ML IVPB SCH (13:24)
[2016-11-20 14:00] VITALS: BP 101/62
[2016-11-20] MEDS: HEPARIN 25,000 UNITS/500ML PMX 500 ML IV PRN (15:26)
[2016-11-20] MEDS: SODIUM CHLORIDE 0.9% IV SCH (17:24)
[2016-11-20] MEDS: CYTARABINE IV SCH (17:24)
[2016-11-20] MEDS: IMATINIB 400 MG TABLET PO SCH (17:25)
[2016-11-20] MEDS: PROMETHAZINE 25MG TABLET PO PRN (18:30)
[2016-11-20 19:36] VITALS: BP 98/64
[2016-11-20] MEDS: ZOLPIDEM 5MG TABLET PO PRN (22:01)
[2016-11-21] MEDS: SODIUM ACETATE IV SCH ×3 (01:39→17:56)
[2016-11-21] MEDS: NACL IV SCH ×3 (01:39→17:56)
[2016-11-21] MEDS: D5 IV SCH ×3 (01:39→17:56)
[2016-11-21 03:55] VITALS: BP 100/61
[2016-11-21] MEDS ORDERED: SODIUM CHLORIDE 0.9% IV ONE (04:51)
[2016-11-21] MEDS ORDERED: LEUCOVORIN IV ONE (04:51)
[2016-11-21] MEDS: CYTARABINE IV SCH ×2 (05:35→17:14)
[2016-11-21] MEDS: SODIUM CHLORIDE 0.9% IV SCH ×5 (05:35→22:33)
[2016-11-21] MEDS: DEXAMETHASONE OPHTH 0.1%, 5ML EACHEYE SCH ×4 (05:41→21:20)
[2016-11-21 08:11] VITALS: BP 109/60
[2016-11-21] MEDS: SENNA/DOCUSATE TABLET PO SCH ×2 (08:45→21:19)
[2016-11-21] MEDS: SERTRALINE 50MG TABLET PO SCH (08:45)
[2016-11-21] MEDS: LEUCOVORIN IV SCH ×3 (10:20→22:33)
[2016-11-21] MEDS: methylPREDNISolone SOD SUCC 125 MG/2 ML IVPush SCH ×2 (11:08→22:33)
[2016-11-21] MEDS: HEPARIN 25,000 UNITS/500ML PMX 500 ML IV PRN (11:12)
[2016-11-21] MEDS: ONDANSETRON 16 MG, DEXAMETHASONE 12 MG in SODIUM CHLORIDE 0.9% 50 ML IVPB SCH (12:51)
[2016-11-21 13:30] VITALS: BP 92/55
[2016-11-21] MEDS: IMATINIB 400 MG TABLET PO SCH (17:16)
[2016-11-21 19:45] VITALS: BP 110/54
[2016-11-21] MEDS: ZOLPIDEM 5MG TABLET PO PRN (22:33)
[2016-11-22] MEDS: NACL IV SCH ×3 (00:08→13:30)
[2016-11-22] MEDS: D5 IV SCH ×3 (00:08→13:30)
[2016-11-22] MEDS: SODIUM ACETATE IV SCH ×3 (00:08→13:30)
[2016-11-22 00:54] VITALS: BP 109/55
[2016-11-22] MEDS: HEPARIN 25,000 UNITS/500ML PMX 500 ML IV PRN ×2 (03:30→18:19)
[2016-11-22] MEDS: SODIUM CHLORIDE 0.9% IV SCH ×4 (04:30→16:24)
[2016-11-22] MEDS: LEUCOVORIN IV SCH ×3 (04:30→16:24)
[2016-11-22] MEDS: CYTARABINE IV SCH (05:37)
[2016-11-22] MEDS: DEXAMETHASONE OPHTH 0.1%, 5ML EACHEYE SCH ×2 (06:07→10:21)
[2016-11-22 06:39] LABS: HEMATOCRIT 26.6 % (39.2-51.8); HEMOGLOBIN 8.7 g/dL (13.7-18.0); WHITE BLOOD COUNT 5.4 x10^3/uL (3.4-10)
[2016-11-22 06:42] LABS: ASPARTATE AMINO TRANSFERASE 18 U/L (15-37); BLOOD UREA NITROGEN 7 mg/dL (7-18)
[2016-11-22 07:10] VITALS: BP 114/70
[2016-11-22] MEDS: SENNA/DOCUSATE TABLET PO SCH ×2 (08:06→20:02)
[2016-11-22] MEDS: IMATINIB 400 MG TABLET PO SCH (08:06)
[2016-11-22] MEDS: SERTRALINE 50MG TABLET PO SCH (08:06)
[2016-11-22 13:32] VITALS: BP 102/58
[2016-11-22] MEDS: NS + 20MEQ KCL 1,000 ML IV SCH (18:13)
[2016-11-22 19:34] VITALS: BP 91/43
[2016-11-22 20:01] VITALS: BP 99/54
[2016-11-22] MEDS: ZOLPIDEM 5MG TABLET PO PRN (21:24)
[2016-11-23 01:53] VITALS: BP 103/63
[2016-11-23] MEDS: NS + 20MEQ KCL 1,000 ML IV SCH ×2 (06:31→18:35)
[2016-11-23] MEDS: HEPARIN 25,000 UNITS/500ML PMX 500 ML IV PRN ×2 (06:43→10:27)
[2016-11-23] MEDS: IMATINIB 400 MG TABLET PO SCH (07:26)
[2016-11-23] MEDS: SERTRALINE 50MG TABLET PO SCH (07:26)
[2016-11-23] MEDS: SENNA/DOCUSATE TABLET PO SCH ×2 (07:27→20:33)
[2016-11-23 07:32] VITALS: BP 103/60
[2016-11-23] MEDS: ONDANSETRON 8 MG TABLET PO PRN (08:59)
[2016-11-23] MEDS ORDERED: HEPARIN 5,000 UNITS/ML, 1ML ONE (13:43)
[2016-11-23 14:00] VITALS: BP 105/55
[2016-11-23] MEDS: ZOLPIDEM 5MG TABLET PO PRN (20:33)
[2016-11-23 20:35] VITALS: BP 99/57
[2016-11-23] MEDS: OXYcodone IR 5MG TABLET PO PRN (23:55)
[2016-11-24] MEDS: HEPARIN 25,000 UNITS/500ML PMX 500 ML IV PRN ×2 (01:43→17:10)
[2016-11-24 02:06] LABS: HEMATOCRIT 28.1 % (39.2-51.8); HEMOGLOBIN 9.2 g/dL (13.7-18.0); WHITE BLOOD COUNT 3.3 x10^3/uL (3.4-10)
[2016-11-24 02:17] LABS: ASPARTATE AMINO TRANSFERASE 23 U/L (15-37); BLOOD UREA NITROGEN 6 mg/dL (7-18)
[2016-11-24 02:55] VITALS: BP 92/54
[2016-11-24 08:35] VITALS: BP 96/54
[2016-11-24] MEDS: SENNA/DOCUSATE TABLET PO SCH ×2 (09:00→19:45)
[2016-11-24] MEDS: NS + 20MEQ KCL 1,000 ML IV SCH ×2 (09:11→22:04)
[2016-11-24] MEDS: SERTRALINE 50MG TABLET PO SCH (09:12)
[2016-11-24] MEDS: PROMETHAZINE 25MG TABLET PO PRN (09:12)
[2016-11-24 13:57] VITALS: BP 97/50
[2016-11-24] MEDS: ONDANSETRON 2MG/ML, 2ML IVPush PRN (16:58)
[2016-11-24] MEDS: IMATINIB 400 MG TABLET PO SCH (17:05)
[2016-11-24] MEDS ORDERED: HEPARIN wt. based STROKE protocol MC SCH (19:07)
[2016-11-24] MEDS ORDERED: LIDOCAINE 2% VISCOUS 15 ML UDC MM PRN (19:30)
[2016-11-24 19:42] VITALS: BP 104/67
[2016-11-24] MEDS: OXYcodone IR 5MG TABLET PO PRN (19:45)
[2016-11-24] MEDS: ZOLPIDEM 5MG TABLET PO PRN (22:38)
[2016-11-25 04:44] VITALS: BP 95/50
[2016-11-25 06:42] VITALS: BP 94/58
[2016-11-25] MEDS: SENNA/DOCUSATE TABLET PO SCH ×2 (09:00→21:00)
[2016-11-25] MEDS ORDERED: IMATINIB 100 MG TABLET PO SCH (09:00)
[2016-11-25] MEDS: SERTRALINE 50MG TABLET PO SCH (09:55)
[2016-11-25] MEDS: HEPARIN 25,000 UNITS/500ML PMX 500 ML IV PRN (11:14)
[2016-11-25] MEDS: NS + 20MEQ KCL 1,000 ML IV SCH (11:43)
[2016-11-25 13:51] VITALS: BP 93/52
[2016-11-25] MEDS: OXYcodone IR 5MG TABLET PO PRN (17:58)
[2016-11-25] MEDS: IMATINIB 100 MG TABLET PO SCH (17:58)
[2016-11-25 18:30] VITALS: BP 101/67
[2016-11-25] MEDS: ZOLPIDEM 5MG TABLET PO PRN (22:33)
[2016-11-26 01:10] VITALS: BP 94/58
[2016-11-26] MEDS: HEPARIN 25,000 UNITS/500ML PMX 500 ML IV PRN (01:49)
[2016-11-26 03:23] LABS: HEMATOCRIT 24.8 % (39.2-51.8); HEMOGLOBIN 8.2 g/dL (13.7-18.0)
[2016-11-26 03:24] LABS: WHITE BLOOD COUNT 0.7 x10^3/uL (3.4-10)
[2016-11-26 03:25] LABS: ASPARTATE AMINO TRANSFERASE 16 U/L (15-37); BLOOD UREA NITROGEN 6 mg/dL (7-18)
[2016-11-26 04:02] LABS: DIFF TOTAL CELLS COUNTED 25 CELL DIFFERENTIAL
[2016-11-26 04:05] LABS: ANISOCYTOSIS 1+
[2016-11-26 04:07] LABS: SPHEROCYTES 1+; VERIFY COUNTS? YES
[2016-11-26] MEDS: SENNA/DOCUSATE TABLET PO SCH ×2 (07:13→20:20)
[2016-11-26 07:20] VITALS: BP 99/65
[2016-11-26] MEDS: SERTRALINE 50MG TABLET PO SCH (07:40)
[2016-11-26] MEDS: ONDANSETRON 8 MG TABLET PO PRN (11:33)
[2016-11-26] MEDS: OXYcodone IR 5MG TABLET PO PRN ×2 (11:52→16:11)
[2016-11-26] MEDS ORDERED: CYTARABINE/PF 100 MG in SODIUM CHLORIDE 0.9% 4 ML IT ONE (12:00)
[2016-11-26 13:37] VITALS: BP 102/67
[2016-11-26] MEDS: NS + 20MEQ KCL 1,000 ML IV SCH ×2 (17:22)
[2016-11-26] MEDS: ENOXAPARIN 80 MG/0.8 ML SQ SCH (17:44)
[2016-11-26 19:14] VITALS: BP 106/74
[2016-11-26] MEDS: ONDANSETRON 2MG/ML, 2ML IVPush PRN (20:18)
[2016-11-26] MEDS: IMATINIB 100 MG TABLET PO SCH (21:21)
[2016-11-26] MEDS: ZOLPIDEM 5MG TABLET PO PRN (21:31)
[2016-11-27 03:01] VITALS: BP 96/64
[2016-11-27] MEDS: NS + 20MEQ KCL 1,000 ML IV SCH ×2 (05:30→20:35)
[2016-11-27] MEDS: ENOXAPARIN 80 MG/0.8 ML SQ SCH ×2 (05:30→16:53)
[2016-11-27] MEDS: SENNA/DOCUSATE TABLET PO SCH ×2 (08:17→20:35)
[2016-11-27 08:40] VITALS: BP 91/57
[2016-11-27] MEDS ORDERED: VANCOMYCIN PER PHARMACY MC PRN (09:30)
[2016-11-27] MEDS ORDERED: PHARMACOKINETIC MONITORING MC PRN (09:30)
[2016-11-27] MEDS: SERTRALINE 50MG TABLET PO SCH (09:56)
[2016-11-27] MEDS: OXYcodone IR 5MG TABLET PO PRN (09:56)
[2016-11-27] MEDS: CIPROFLOXACIN/PMX 400MG/200ML 200 ML IVPB SCH ×2 (10:03→20:36)
[2016-11-27] MEDS ORDERED: VANCOMYCIN 1,600 MG in SODIUM CHLORIDE 0.9% 250 ML IV SCH (11:00)
[2016-11-27] MEDS: TBO-FILGRASTIM 480 MCG/0.8 ML SQ SCH (11:03)
[2016-11-27] MEDS: ONDANSETRON 2MG/ML, 2ML IVPush PRN (12:14)
[2016-11-27] MEDS ORDERED: DIPHENHYDRAMINE 50 MG/ML, 1ML IVPush STA (13:51)
[2016-11-27] MEDS ORDERED: DIPHENHYDRAMINE 50 MG/ML, 1ML ONE (13:53)
[2016-11-27 14:20] VITALS: BP 100/63
[2016-11-27] MEDS: IMATINIB 100 MG TABLET PO SCH (16:53)
[2016-11-27 19:31] VITALS: BP 93/60
[2016-11-28 04:21] VITALS: BP 93/53
[2016-11-28 05:56] LABS: HEMOGLOBIN 7.5 g/dL (13.7-18.0)
[2016-11-28 06:07] LABS: BLOOD UREA NITROGEN 7 mg/dL (7-18)
[2016-11-28 06:10] LABS: ASPARTATE AMINO TRANSFERASE 11 U/L (15-37)
[2016-11-28 06:13] LABS: HEMATOCRIT 22.4 % (39.2-51.8); WHITE BLOOD COUNT 0.2 x10^3/uL (3.4-10)
[2016-11-28 06:22] LABS: DIFF TOTAL CELLS COUNTED 100 CELL DIFF
[2016-11-28 06:56] LABS: ANISOCYTOSIS 1+
[2016-11-28 08:01] VITALS: BP 93/47
[2016-11-28] MEDS ORDERED: ENOXAPARIN 80 MG/0.8 ML ONE (08:05)
[2016-11-28] MEDS: SENNA/DOCUSATE TABLET PO SCH ×2 (08:14→20:06)
[2016-11-28] MEDS: TBO-FILGRASTIM 480 MCG/0.8 ML SQ SCH (08:14)
[2016-11-28] MEDS: SERTRALINE 50MG TABLET PO SCH (08:14)
[2016-11-28] MEDS: ENOXAPARIN 80 MG/0.8 ML SQ SCH ×2 (08:14→18:30)
[2016-11-28] MEDS: CIPROFLOXACIN/PMX 400MG/200ML 200 ML IVPB SCH (09:19)
[2016-11-28] MEDS: OXYcodone IR 5MG TABLET PO PRN ×2 (12:11→18:30)
[2016-11-28] MEDS: NS + 20MEQ KCL 1,000 ML IV SCH (12:11)
[2016-11-28 14:05] VITALS: BP 111/73
[2016-11-28] MEDS: ONDANSETRON 8 MG TABLET PO PRN (15:35)
[2016-11-28] MEDS: LEVOFLOXACIN 750 MG TABLET PO SCH (16:41)
[2016-11-28] MEDS: IMATINIB 100 MG TABLET PO SCH (16:45)
[2016-11-28] MEDS: PROMETHAZINE 25MG TABLET PO PRN (17:17)
[2016-11-28 19:52] VITALS: BP 106/66
[2016-11-28] MEDS: ZOLPIDEM 5MG TABLET PO PRN (23:46)
[2016-11-29] MEDS: ZOLPIDEM 5MG TABLET PO PRN ×2 (01:43→23:41)
[2016-11-29] MEDS: NS + 20MEQ KCL 1,000 ML IV SCH ×2 (01:44→13:32)
[2016-11-29 04:51] VITALS: BP 85/48
[2016-11-29 05:03] VITALS: BP 90/50
[2016-11-29 05:57] VITALS: BP 96/54
[2016-11-29] MEDS: ENOXAPARIN 80 MG/0.8 ML SQ SCH ×2 (05:57→18:32)
[2016-11-29 08:06] VITALS: BP 93/54
[2016-11-29] MEDS: SENNA/DOCUSATE TABLET PO SCH ×2 (09:00→21:00)
[2016-11-29] MEDS: SERTRALINE 50MG TABLET PO SCH (09:38)
[2016-11-29] MEDS: TBO-FILGRASTIM 480 MCG/0.8 ML SQ SCH (09:40)
[2016-11-29] MEDS: OXYcodone IR 5MG TABLET PO PRN ×2 (10:29→16:32)
[2016-11-29 13:40] VITALS: BP 93/59
[2016-11-29] MEDS: LEVOFLOXACIN 750 MG TABLET PO SCH (16:15)
[2016-11-29] MEDS: IMATINIB 100 MG TABLET PO SCH (17:21)
[2016-11-29] MEDS: ONDANSETRON 2MG/ML, 2ML IVPush PRN (18:58)
[2016-11-29 19:02] VITALS: BP 102/61
[2016-11-30] VITALS (10 sets, daily range): BP systolic 89–107; BP diastolic 41–97
[2016-11-30] MEDS: OXYcodone IR 5MG TABLET PO PRN ×3 (04:42→20:52)
[2016-11-30] MEDS: NS + 20MEQ KCL 1,000 ML IV SCH ×2 (04:42→18:01)
[2016-11-30 05:35] LABS: ASPARTATE AMINO TRANSFERASE 14 U/L (15-37); BLOOD UREA NITROGEN 5 mg/dL (7-18)
[2016-11-30] MEDS: ENOXAPARIN 80 MG/0.8 ML SQ SCH ×2 (05:39→17:05)
[2016-11-30 05:42] LABS: WHITE BLOOD COUNT 0.2 x10^3/uL (3.4-10)
[2016-11-30 05:43] LABS: HEMATOCRIT 18.1 % (39.2-51.8); HEMOGLOBIN 6.3 g/dL (13.7-18.0)
[2016-11-30 06:27] LABS: DIFF TOTAL CELLS COUNTED 25 CELL DIFFERENTIAL
[2016-11-30 06:37] LABS: ANISOCYTOSIS 1+; VERIFY COUNTS? YES
[2016-11-30 06:42] LABS: MICROCYTOSIS 1+
[2016-11-30] MEDS: ONDANSETRON 2MG/ML, 2ML IVPush PRN (07:27)
[2016-11-30] MEDS: SENNA/DOCUSATE TABLET PO SCH ×2 (09:00→20:15)
[2016-11-30] MEDS: DIPHENHYDRAMINE 25 MG CAPSULE PO PRN (09:08)
[2016-11-30] MEDS: SERTRALINE 50MG TABLET PO SCH (09:09)
[2016-11-30] MEDS: ACETAMINOPHEN 325 MG TABLET PO PRN (09:09)
[2016-11-30] MEDS: TBO-FILGRASTIM 480 MCG/0.8 ML SQ SCH (09:10)
[2016-11-30] MEDS: LEVOFLOXACIN 750 MG TABLET PO SCH (16:10)
[2016-11-30] MEDS: IMATINIB 100 MG TABLET PO SCH (17:09)
[2016-11-30] MEDS ORDERED: ACETAMINOPHEN 325 MG TABLET PO ONE (20:30)
[2016-11-30] MEDS: ZOLPIDEM 5MG TABLET PO PRN (22:23)
[2016-12-01] VITALS (7 sets, daily range): BP systolic 93–104; BP diastolic 51–62
[2016-12-01 04:42] LABS: HEMATOCRIT 27.3 % (39.2-51.8); HEMOGLOBIN 9.2 g/dL (13.7-18.0)
[2016-12-01 04:47] LABS: WHITE BLOOD COUNT 0.3 x10^3/uL (3.4-10)
[2016-12-01 04:52] LABS: DIFF TOTAL CELLS COUNTED 100 CELL DIFF
[2016-12-01 04:57] LABS: ANISOCYTOSIS 1+; VERIFY COUNTS? YES
[2016-12-01] MEDS: OXYcodone IR 5MG TABLET PO PRN ×3 (05:06→20:51)
[2016-12-01] MEDS: ENOXAPARIN 80 MG/0.8 ML SQ SCH ×2 (05:07→17:52)
[2016-12-01] MEDS: NS + 20MEQ KCL 1,000 ML IV SCH ×2 (06:42→22:46)
[2016-12-01] MEDS: ONDANSETRON 2MG/ML, 2ML IVPush PRN ×2 (08:22→17:52)
[2016-12-01] MEDS: SERTRALINE 50MG TABLET PO SCH (08:22)
[2016-12-01] MEDS: ACETAMINOPHEN 325 MG TABLET PO PRN ×3 (08:23→23:13)
[2016-12-01] MEDS: DIPHENHYDRAMINE 25 MG CAPSULE PO PRN (08:23)
[2016-12-01] MEDS: SENNA/DOCUSATE TABLET PO SCH ×2 (08:26→19:43)
[2016-12-01] MEDS: TBO-FILGRASTIM 480 MCG/0.8 ML SQ SCH (09:02)
[2016-12-01] MEDS: LEVOFLOXACIN 750 MG TABLET PO SCH (15:57)
[2016-12-01] MEDS: IMATINIB 100 MG TABLET PO SCH (17:28)
[2016-12-01] MEDS ORDERED: NS + 20MEQ KCL 1,000 ML IV SCH (17:30)
[2016-12-01] MEDS: DAPTOMYCIN 500 MG in SODIUM CHLORIDE 0.9% 100 ML IV SCH (19:42)
[2016-12-01] MEDS: MEROPENEM 1 GM in SODIUM CHLORIDE 0.9% 100 ML IV SCH (20:51)
[2016-12-01] MEDS: ZOLPIDEM 5MG TABLET PO PRN (22:46)
[2016-12-02] VITALS (8 sets, daily range): BP systolic 90–110; BP diastolic 48–66
[2016-12-02] MEDS: ACETAMINOPHEN 325 MG TABLET PO PRN (05:28)
[2016-12-02] MEDS: MEROPENEM 1 GM in SODIUM CHLORIDE 0.9% 100 ML IV SCH ×3 (05:28→22:36)
[2016-12-02 05:43] LABS: HEMOGLOBIN 7.2 g/dL (13.7-18.0)
[2016-12-02 05:49] LABS: ASPARTATE AMINO TRANSFERASE 18 U/L (15-37); BLOOD UREA NITROGEN 4 mg/dL (7-18); HEMATOCRIT 21.4 % (39.2-51.8); WHITE BLOOD COUNT 0.3 x10^3/uL (3.4-10)
[2016-12-02] MEDS: ENOXAPARIN 80 MG/0.8 ML SQ SCH ×2 (06:00→18:11)
[2016-12-02 06:20] LABS: DIFF TOTAL CELLS COUNTED 25 CELL DIFFERENTIAL
[2016-12-02 06:21] LABS: ANISOCYTOSIS 1+; VERIFY COUNTS? YES
[2016-12-02] MEDS: FLUCONAZOLE 200 MG TABLET PO SCH (08:24)
[2016-12-02] MEDS: SENNA/DOCUSATE TABLET PO SCH ×2 (08:25→21:00)
[2016-12-02] MEDS: SERTRALINE 50MG TABLET PO SCH (08:25)
[2016-12-02] MEDS: DIPHENHYDRAMINE 25 MG CAPSULE PO PRN (08:31)
[2016-12-02] MEDS: OXYcodone IR 5MG TABLET PO PRN ×2 (10:18→17:41)
[2016-12-02] MEDS: TBO-FILGRASTIM 480 MCG/0.8 ML SQ SCH (10:52)
[2016-12-02] MEDS ORDERED: SODIUM CHLORIDE 0.9% 500 ML IV SCH (11:30)
[2016-12-02] MEDS: NS + 20MEQ KCL 1,000 ML IV SCH (14:33)
[2016-12-02] MEDS ORDERED: POLYETHYLENE GLYCOL 17 GM PACKET PO PRN (15:30)
[2016-12-02] MEDS ORDERED: BISACODYL 5 MG EC TABLET PO PRN (15:30)
[2016-12-02] MEDS: IMATINIB 100 MG TABLET PO SCH (17:13)
[2016-12-02] MEDS: DAPTOMYCIN 500 MG in SODIUM CHLORIDE 0.9% 100 ML IV SCH (21:37)
[2016-12-02] MEDS: ZOLPIDEM 5MG TABLET PO PRN (21:37)
[2016-12-03] VITALS (8 sets, daily range): BP systolic 91–113; BP diastolic 48–79
[2016-12-03] MEDS: NS + 20MEQ KCL 1,000 ML IV SCH ×2 (03:29→18:35)
[2016-12-03 03:42] LABS: HEMATOCRIT 25.3 % (39.2-51.8); HEMOGLOBIN 8.2 g/dL (13.7-18.0)
[2016-12-03 03:48] LABS: WHITE BLOOD COUNT 0.5 x10^3/uL (3.4-10)
[2016-12-03 03:54] LABS: DIFF TOTAL CELLS COUNTED 100 CELL DIFF
[2016-12-03 03:55] LABS: ASPARTATE AMINO TRANSFERASE 44 U/L (15-37); BLOOD UREA NITROGEN 5 mg/dL (7-18)
[2016-12-03 04:01] LABS: ANISOCYTOSIS 1+; VERIFY COUNTS? YES
[2016-12-03 04:05] LABS: C-REACTIVE PROTEIN, QUANT > 19.00 mg/dL (0.02-0.49)
[2016-12-03] MEDS: ENOXAPARIN 80 MG/0.8 ML SQ SCH ×2 (05:49→17:37)
[2016-12-03] MEDS: MEROPENEM 1 GM in SODIUM CHLORIDE 0.9% 100 ML IV SCH ×3 (05:49→22:59)
[2016-12-03] MEDS: FLUCONAZOLE 200 MG TABLET PO SCH (08:37)
[2016-12-03] MEDS: ONDANSETRON 8 MG TABLET PO PRN (08:37)
[2016-12-03] MEDS: SERTRALINE 50MG TABLET PO SCH (08:37)
[2016-12-03] MEDS: SENNA/DOCUSATE TABLET PO SCH ×2 (08:37→19:55)
[2016-12-03] MEDS: OXYcodone IR 5MG TABLET PO PRN ×2 (08:37→15:18)
[2016-12-03] MEDS: TBO-FILGRASTIM 480 MCG/0.8 ML SQ SCH (10:15)
[2016-12-03] MEDS: IMATINIB 100 MG TABLET PO SCH (17:44)
[2016-12-03] MEDS ORDERED: HYDROCORTISONE 100 MG INJ. IVPush ONE (20:00)
[2016-12-03] MEDS: DAPTOMYCIN 500 MG in SODIUM CHLORIDE 0.9% 100 ML IV SCH (22:20)
[2016-12-03] MEDS: ZOLPIDEM 5MG TABLET PO PRN (23:31)
[2016-12-04 03:08] VITALS: BP 169/65
[2016-12-04] MEDS: MEROPENEM 1 GM in SODIUM CHLORIDE 0.9% 100 ML IV SCH ×3 (06:02→22:08)
[2016-12-04] MEDS: ENOXAPARIN 80 MG/0.8 ML SQ SCH ×2 (06:02→17:32)
[2016-12-04] MEDS: NS + 20MEQ KCL 1,000 ML IV SCH ×2 (06:02→19:22)
[2016-12-04 06:24] LABS: ASPARTATE AMINO TRANSFERASE 42 U/L (15-37); BLOOD UREA NITROGEN 4 mg/dL (7-18)
[2016-12-04 06:25] LABS: HEMOGLOBIN 8.4 g/dL (13.7-18.0)
[2016-12-04 06:40] LABS: DIFF TOTAL CELLS COUNTED 100 CELL DIFF
[2016-12-04 06:44] LABS: ANISOCYTOSIS 1+; VERIFY COUNTS? YES
[2016-12-04 08:30] VITALS: BP 98/60
[2016-12-04] MEDS: TBO-FILGRASTIM 480 MCG/0.8 ML SQ SCH (08:58)
[2016-12-04] MEDS: SERTRALINE 50MG TABLET PO SCH (08:58)
[2016-12-04] MEDS: SENNA/DOCUSATE TABLET PO SCH ×2 (08:59→21:38)
[2016-12-04] MEDS: FLUCONAZOLE 200 MG TABLET PO SCH (08:59)
[2016-12-04] MEDS: OXYcodone IR 5MG TABLET PO PRN ×3 (12:36→23:01)
[2016-12-04] MEDS: IMATINIB 100 MG TABLET PO SCH (17:32)
[2016-12-04] MEDS: ONDANSETRON 8 MG TABLET PO PRN (18:31)
[2016-12-04 18:34] VITALS: BP 96/57
[2016-12-04 20:30] VITALS: BP 95/60
[2016-12-04] MEDS: ZOLPIDEM 5MG TABLET PO PRN (21:35)
[2016-12-04] MEDS: DAPTOMYCIN 500 MG in SODIUM CHLORIDE 0.9% 100 ML IV SCH (21:35)
[2016-12-05 00:59] VITALS: BP 96/52
[2016-12-05] MEDS: ENOXAPARIN 80 MG/0.8 ML SQ SCH ×2 (05:01→17:48)
[2016-12-05 05:44] LABS: ASPARTATE AMINO TRANSFERASE 43 U/L (15-37); BLOOD UREA NITROGEN 4 mg/dL (7-18)
[2016-12-05 05:50] LABS: HEMATOCRIT 26.9 % (39.2-51.8)
[2016-12-05 06:14] LABS: DIFF TOTAL CELLS COUNTED 100 CELL DIFF
[2016-12-05 06:18] LABS: ANISOCYTOSIS 1+; VERIFY COUNTS? YES
[2016-12-05] MEDS: MEROPENEM 1 GM in SODIUM CHLORIDE 0.9% 100 ML IV SCH ×3 (06:20→21:26)
[2016-12-05 07:37] VITALS: BP 99/65
[2016-12-05] MEDS: FLUCONAZOLE 200 MG TABLET PO SCH (08:33)
[2016-12-05] MEDS: SENNA/DOCUSATE TABLET PO SCH ×2 (08:33→21:25)
[2016-12-05] MEDS: ACETAMINOPHEN 325 MG TABLET PO PRN (08:33)
[2016-12-05] MEDS: SERTRALINE 50MG TABLET PO SCH (08:33)
[2016-12-05] MEDS: TBO-FILGRASTIM 480 MCG/0.8 ML SQ SCH (09:30)
[2016-12-05] MEDS: NS + 20MEQ KCL 1,000 ML IV SCH (09:47)
[2016-12-05] MEDS: MICAFUNGIN 100 MG in SODIUM CHLORIDE 0.9% 100 ML IV SCH (12:45)
[2016-12-05 13:31] VITALS: BP 97/63
[2016-12-05] MEDS: OXYcodone IR 5MG TABLET PO PRN (15:18)
[2016-12-05] MEDS: IMATINIB 100 MG TABLET PO SCH (17:50)
[2016-12-05 20:15] VITALS: BP 93/60
[2016-12-05] MEDS: ACYCLOVIR 200 MG CAPSULE PO SCH (21:25)
[2016-12-05] MEDS: ZOLPIDEM 5MG TABLET PO PRN (21:25)
[2016-12-06 01:06] VITALS: BP 90/49
[2016-12-06] MEDS: NS + 20MEQ KCL 1,000 ML IV SCH ×2 (01:06→15:32)
[2016-12-06] MEDS: ZOLPIDEM 5MG TABLET PO PRN ×2 (01:32→21:48)
[2016-12-06] MEDS: ENOXAPARIN 80 MG/0.8 ML SQ SCH ×2 (05:47→17:23)
[2016-12-06] MEDS: ACYCLOVIR 200 MG CAPSULE PO SCH ×5 (05:47→19:57)
[2016-12-06] MEDS: MEROPENEM 1 GM in SODIUM CHLORIDE 0.9% 100 ML IV SCH ×3 (05:47→21:47)
[2016-12-06 05:59] LABS: HEMATOCRIT 25.5 % (39.2-51.8); HEMOGLOBIN 8.7 g/dL (13.7-18.0); WHITE BLOOD COUNT 3.9 x10^3/uL (3.4-10)
[2016-12-06 06:12] LABS: ASPARTATE AMINO TRANSFERASE 36 U/L (15-37); BLOOD UREA NITROGEN 2 mg/dL (7-18)
[2016-12-06 06:24] LABS: DIFF TOTAL CELLS COUNTED 100 CELL DIFF
[2016-12-06 06:28] LABS: ANISOCYTOSIS 1+; POLYCHROMASIA 1+; VERIFY COUNTS? YES
[2016-12-06] MEDS: SERTRALINE 50MG TABLET PO SCH (08:51)
[2016-12-06] MEDS: SENNA/DOCUSATE TABLET PO SCH ×3 (08:53→19:59)
[2016-12-06 08:55] VITALS: BP 99/52
[2016-12-06] MEDS: MICAFUNGIN 100 MG in SODIUM CHLORIDE 0.9% 100 ML IV SCH (11:38)
[2016-12-06 14:50] VITALS: BP 104/55
[2016-12-06] MEDS: IMATINIB 100 MG TABLET PO SCH (17:22)
[2016-12-06] MEDS ORDERED: AQUAPHOR NATURAL HEALING OINT 50GM TP PRN (17:30)
[2016-12-06] MEDS: ONDANSETRON 8 MG TABLET PO PRN (17:59)
[2016-12-06 19:45] VITALS: BP 99/66
[2016-12-06] MEDS: OXYcodone IR 5MG TABLET PO PRN (19:56)
[2016-12-06] MEDS: ACETAMINOPHEN 325 MG TABLET PO PRN (19:56)
[2016-12-07 03:12] VITALS: BP 91/59
[2016-12-07] MEDS: ACYCLOVIR 200 MG CAPSULE PO SCH ×5 (04:48→20:23)
[2016-12-07] MEDS: ENOXAPARIN 80 MG/0.8 ML SQ SCH ×2 (04:48→17:32)
[2016-12-07] MEDS: OXYcodone IR 5MG TABLET PO PRN ×4 (04:48→20:23)
[2016-12-07] MEDS: MEROPENEM 1 GM in SODIUM CHLORIDE 0.9% 100 ML IV SCH ×3 (04:48→21:45)
[2016-12-07 07:56] VITALS: BP 101/61
[2016-12-07] MEDS: NS + 20MEQ KCL 1,000 ML IV SCH ×2 (07:58→21:46)
[2016-12-07] MEDS: SENNA/DOCUSATE TABLET PO SCH ×2 (07:58→20:23)
[2016-12-07] MEDS: SERTRALINE 50MG TABLET PO SCH (08:00)
[2016-12-07] MEDS: MICAFUNGIN 100 MG in SODIUM CHLORIDE 0.9% 100 ML IV SCH (10:21)
[2016-12-07 14:21] VITALS: BP 97/67
[2016-12-07] MEDS: IMATINIB 100 MG TABLET PO SCH (17:34)
[2016-12-07] MEDS: ONDANSETRON 2MG/ML, 2ML IVPush PRN (17:38)
[2016-12-07 19:16] VITALS: BP 99/67
[2016-12-07] MEDS: ZOLPIDEM 5MG TABLET PO PRN (21:55)
[2016-12-08 02:14] VITALS: BP 106/69
[2016-12-08] MEDS: ACYCLOVIR 200 MG CAPSULE PO SCH ×3 (05:17→15:56)
[2016-12-08] MEDS: MEROPENEM 1 GM in SODIUM CHLORIDE 0.9% 100 ML IV SCH (05:17)
[2016-12-08] MEDS: ENOXAPARIN 80 MG/0.8 ML SQ SCH ×2 (05:17→17:05)
[2016-12-08] MEDS: OXYcodone IR 5MG TABLET PO PRN ×3 (05:22→17:39)
[2016-12-08 05:59] LABS: HEMATOCRIT 28.3 % (39.2-51.8); HEMOGLOBIN 9.4 g/dL (13.7-18.0); WHITE BLOOD COUNT 4.7 x10^3/uL (3.4-10)
[2016-12-08 06:02] LABS: ASPARTATE AMINO TRANSFERASE 51 U/L (15-37); BLOOD UREA NITROGEN 5 mg/dL (7-18)
[2016-12-08 06:05] LABS: DIFF TOTAL CELLS COUNTED 100 CELL DIFF
[2016-12-08 06:51] LABS: ANISOCYTOSIS 1+; VERIFY COUNTS? YES
[2016-12-08 08:45] VITALS: BP 101/68
[2016-12-08] MEDS: SERTRALINE 50MG TABLET PO SCH (09:00)
[2016-12-08] MEDS: SENNA/DOCUSATE TABLET PO SCH (09:00)
[2016-12-08] MEDS ORDERED: LEVOFLOXACIN 750 MG TABLET PO SCH (10:00)
[2016-12-08] MEDS: ONDANSETRON 2MG/ML, 2ML IVPush PRN (10:52)
[2016-12-08] MEDS: NS + 20MEQ KCL 1,000 ML IV SCH (11:07)
[2016-12-08 13:44] VITALS: BP 109/73
[2016-12-08] MEDS: IMATINIB 100 MG TABLET PO SCH (15:56)
[2016-12-08] MEDS: ONDANSETRON 8 MG TABLET PO PRN (16:01)
[2016-12-08 19:33] VITALS: BP 120/81
[2016-12-08] MEDS ORDERED: LEVO750T6 PO ×2 (19:48→19:52)
== END 2016-12-08 20:10 | disposition home or self-care (01) | DRG 837 ==
LOC: 3NW 08:20
PROVIDERS: ADMIT Internal Medicine Hematology & Oncology; ATTEND Nurse Practitioner Family
PROC: 3E0R305 Introduction of Other Antineoplastic into Spinal Canal, Percutaneous Approach (ICD-10-PCS; 2016-11-20)
PROC: 3E0R305 Introduction of Other Antineoplastic into Spinal Canal, Percutaneous Approach (ICD-10-PCS; 2016-11-26)
PROC: 30233N1 Transfusion of Nonautologous Red Blood Cells into Peripheral Vein, Percutaneous Approach (ICD-10-PCS; 2016-11-30)
PROC: 30233R1 Transfusion of Nonautologous Platelets into Peripheral Vein, Percutaneous Approach (ICD-10-PCS; principal; 2016-12-01)
DX: Z51.11 Encounter for antineoplastic chemotherapy (principal); G08 Intracranial and intraspinal phlebitis and thrombophlebitis; C91.00 Acute lymphoblastic leukemia not having achieved remission; D61.810 Antineoplastic chemotherapy induced pancytopenia; E46 Unspecified protein-calorie malnutrition; D70.1 Agranulocytosis secondary to cancer chemotherapy; I95.9 Hypotension, unspecified; J82 Pulmonary eosinophilia, not elsewhere classified; D63.8 Anemia in other chronic diseases classified elsewhere; F17.210 Nicotine dependence, cigarettes, uncomplicated; R50.81 Fever presenting with conditions classified elsewhere; S30.1XXA Contusion of abdominal wall, initial encounter; T45.1X5A Adverse effect of antineoplastic and immunosuppressive drugs, initial encounter; Y92.89 Other specified places as the place of occurrence of the external cause; K12.31 Oral mucositis (ulcerative) due to antineoplastic therapy; Z68.27 Body mass index [BMI] 27.0-27.9, adult; Z87.01 Personal history of pneumonia (recurrent); Z86.711 Personal history of pulmonary embolism; Z86.718 Personal history of other venous thrombosis and embolism
CPT/HCPCS: 36415; 62270; 70450; 71010; 71020; 80053; 80375; 81003; 82550; 83605; 83735; 84145; 85025; 85520; 85651; 86140; 86850; 86900; 86923; 87040; 87324; J0640; J0744; J0878; J1100; J1644; J1650; J2185; J2248; J2405; J3370; J3480; J9100; J9250; Q0162; Q0169; G0480; J1200; J1447; J1720; J2060; J2930; J7030; J7040; J7050; P9037; P9040; Q0163; S0028

== ENCOUNTER 2017-01-17 06:20 | Day surgery (SDC) | payer SELFPAY ==
[~2017-01-17] VITALS: Ht 177.8 cm; Wt 90.0 kg
[~2017-01-17 06:20] MED LIST changes: +LEVO750T6 PO
[2017-01-17 07:35] VITALS: BP 107/73
[2017-01-17 07:35] LABS: HEMATOCRIT 41.7 % (39.2-51.8); HEMOGLOBIN 14.1 g/dL (13.7-18.0); WHITE BLOOD COUNT 3.8 x10^3/uL (3.4-10)
[2017-01-17] MEDS ORDERED: SODIUM CHLORIDE 0.9% 1,000 ML IV SCH (07:37)
[2017-01-17] MEDS ORDERED: ACYC-114 PO (07:45)
[2017-01-17] MEDS ORDERED: IMAT400T PO (07:45)
[2017-01-17] MEDS ORDERED: METH2.5T PO (07:45)
[2017-01-17] MEDS ORDERED: PROC10TA PO (07:45)
[2017-01-17] MEDS ORDERED: APIX2.5T PO (07:45)
[2017-01-17] MEDS ORDERED: MERC50TA17 PO (07:45)
[2017-01-17] MEDS ORDERED: LIDOCAINE 1%, 20ML ONE (08:02)
[2017-01-17] MEDS ORDERED: FENTANYL PF 100 MCG/2ML ONE ×3 (08:18→09:05)
[2017-01-17] MEDS ORDERED: MIDAZOLAM 1 MG/ML, 5ML ONE (08:18)
[2017-01-17] MEDS ORDERED: FLUMAZENIL 0.1 MG/1 ML, 5ML ONE (08:18)
[2017-01-17] MEDS ORDERED: NALOXONE 1 MG/ML, 2ML ONE (08:18)
== END 2017-01-17 10:30 ==
LOC: OUT 06:20
PROVIDERS: ATTEND Internal Medicine Hematology & Oncology
DX: C83.30 Diffuse large B-cell lymphoma, unspecified site (principal); D72.1 Eosinophilia; Z88.1 Allergy status to other antibiotic agents; Z87.891 Personal history of nicotine dependence
CPT/HCPCS: 36415; 38221; 77012; 85025; 85097; 88237; 88264; 88280; 88305; 88311; 88313; 99156; 99157; G0364; J2250; J3010; J3490; J7030; J2310

== ENCOUNTER 2017-09-14 20:59 | Emergency (ER) | payer MEDICAID ==
[~2017-09-14] VITALS: Ht 177.8 cm; Wt 90.9 kg
[~2017-09-14 20:59] MED LIST changes: +ACYC-114 PO; +APIX2.5T PO; +IMAT400T PO; +MERC50TA17 PO; +METH2.5T PO
[2017-09-14 21:03] VITALS: BP 122/89
[2017-09-14] MEDS ORDERED: KETOROLAC 30 MG/1 ML IVPush ONE (21:30)
[2017-09-14] MEDS ORDERED: SODIUM CHLORIDE FLUSH 10ML SYR IVF ONE (21:30)
[2017-09-14] MEDS ORDERED: PROCHLORPERAZINE 5 MG/ML, 2ML IVPush ONE (21:30)
[2017-09-14] MEDS ORDERED: DIPHENHYDRAMINE 50 MG/ML, 1ML IVPush ONE (21:30)
[2017-09-14] MEDS ORDERED: SODIUM CHLORIDE 0.9% 1,000ML IVBOLUS ONE (21:30)
[2017-09-14] MEDS ORDERED: DIPHENHYDRAMINE 50 MG/ML, 1ML ONE (21:36)
[2017-09-14] MEDS ORDERED: PROCHLORPERAZINE 5 MG/ML, 2ML ONE (21:36)
[2017-09-14] MEDS ORDERED: KETOROLAC 30 MG/1 ML ONE (21:37)
[2017-09-14 21:41] LABS: BASOPHILS # (AUTO) 0.02 x10^3/uL (0-0.1); BASOPHILS % (AUTO) 0 % (0-1); EOSINOPHILS # (AUTO) 0.15 x10^3/uL (0-0.4); EOSINOPHILS % (AUTO) 2 % (1-7); LYMPHOCYTES # (AUTO) 0.74 x10^3/uL (1-3.4); LYMPHOCYTES % (AUTO) 12 % (22-44); MD NO; MEAN CORPUSCULAR HEMOGLOBIN 35.4 pg (27.5-34.5); MEAN CORPUSCULAR HGB CONC 34.2 g/dL (33.2-36.2); MEAN CORPUSCULAR VOLUME 103.6 fL (81-97); MEAN PLATELET VOLUME 6.1 fL (7.4-10.4); MONOCYTES # (AUTO) 1.05 x10^3/uL (0.2-0.8); MONOCYTES % (AUTO) 17 % (2-9); NEUTROPHILS # (AUTO) 4.27 x10^3/uL (1.8-6.8); NEUTROPHILS % (AUTO) 69 % (42-75); PLATELET COUNT 394 x10^3/uL (130-400); RED BLOOD COUNT 4.31 x10^6/uL (4.38-5.82); RED CELL DISTRIBUTION WIDTH 15.9 % (9.4-14.8)
[2017-09-14 21:52] LABS: ALANINE AMINOTRANSFERASE 27 U/L (12-78); ALBUMIN 4.1 g/dL (3.4-5.0); ANION GAP 5 mmol/L (5-15); CHLORIDE 108 mmol/L (98-107); CREATININE 0.93 mg/dL (0.7-1.3)
[2017-09-14 21:54] LABS: ALKALINE PHOSPHATASE 80 U/L (45-117); BILIRUBIN,TOTAL 0.4 mg/dL (0.2-1.0); TOTAL PROTEIN 6.9 g/dL (6.4-8.2)
[2017-09-14] MEDS ORDERED: MORPHINE SULFATE 4 MG/ML, 1ML ONE (22:05)
[2017-09-14] MEDS: MORPHINE SULFATE 4 MG/ML, 1ML IVPush PRN (22:06)
[2017-09-14] MEDS ORDERED: HYDROmorphone 2 MG/ML, 1ML IVPush PRN (23:00)
[2017-09-14] MEDS ORDERED: HYDROmorphone 2 MG/ML, 1ML ONE (23:10)
[2017-09-15] MEDS ORDERED: GADOBUTROL 10 MMOL/10 ML PFS ONE (00:18)
[2017-09-15] MEDS: MORPHINE SULFATE 4 MG/ML, 1ML IVPush PRN (01:15)
== END 2017-09-15 01:43 | disposition home or self-care (01) ==
LOC: ED 23:19
DX: M54.5 Low back pain (principal); M54.2 Cervicalgia; R51 Headache; Z87.891 Personal history of nicotine dependence
CPT/HCPCS: 36415; 70553; 80053; 85025; 96374; 96375; 99285; A9585; J0780; J1170; J1200; J1885; J7030; J7512